=== PATIENT | male | born 1950 | race Caucasian/White ===

== ENCOUNTER → 2016-05-26 | Outpatient (CLI) | payer MEDICARE ==
[2016-05-26 11:01] LABS: Basophils % (A) 1 %; CH 31.9; CHCM 34.5; Eosinophils # (A) 0.3 k/uL (0-0.7); Eosinophils % (A) 5 %; HCT 45.7 % (39.0-53.0); HGB 15.5 gm/dL (13.0-17.5); Luc # (Auto) 0.08; Luc % (Auto) 1; Lymphocytes # (A) 1.1 k/uL (1.0-4.8); Lymphocytes % (A) 19 %; MCH 31.5 pg (25.0-35.0); MCHC 33.9 g/dL (31.0-37.0); Mean Platelet Volume 6.6; Monocytes # (A) 0.3 k/uL (0-1.0); Monocytes % (A) 6 %; Neutrophils % (A) 69 %; RBC 4.91 m/uL (4.30-5.90); WBC 5.8 k/uL (3.8-10.6); WBC (Perox) 5.86
[2016-05-26 11:17] LABS: Hemoglobin A1C 5.8 % (4.2-6.1)
[2016-05-26 11:49] LABS: ALT 34 U/L (21-72); AST 28 U/L (17-59); Alkaline Phosphatase 79 U/L (38-126); Anion Gap 13 mmol/L; Blood Urea Nitrogen 8 mg/dL (9-20); C Reactive Protein 5.7 mg/L (<10.0); Calcium 9.2 mg/dL (8.4-10.2); Carbon Dioxide 24 mmol/L (22-30); Chloride 107 mmol/L (98-107); Creatine Kinase 434 U/L (55-170); Glucose 141 mg/dL (74-99); Non-African American GFR(MDRD) >60 (>60 ml/min/1.73 sqM); Potassium 4.1 mmol/L (3.5-5.1); Sodium 144 mmol/L (137-145); Total Bilirubin 0.5 mg/dL (0.2-1.3)
[2016-05-26 11:59] LABS: Erythrocyte Sedimentation Rate 8 mm/hr (0-15)
[2016-05-26 12:13] LABS: Prostate Specific Antigen 4.37 ng/mL (0.00-4.00)
== END ==
LOC: LABWHC1 10:41
PROVIDERS: ATTEND Internal Medicine
DX: Z00.00 Encounter for general adult medical examination without abnormal findings (principal); N40.0 Benign prostatic hyperplasia without lower urinary tract symptoms; J44.9 Chronic obstructive pulmonary disease, unspecified; E11.9 Type 2 diabetes mellitus without complications; E78.5 Hyperlipidemia, unspecified; I10 Essential (primary) hypertension; E03.9 Hypothyroidism, unspecified; E55.9 Vitamin D deficiency, unspecified
CPT/HCPCS: 36415; 80053; 82306; 82550; 83036; 84153; 84443; 85025; 85652; 86140

== ENCOUNTER → 2016-05-27 | Outpatient (CLI) | payer MEDICARE ==
[2016-05-27 11:15] LABS: Cholesterol 86 mg/dL (<200); HDL Cholesterol 34 mg/dL (40-60); Triglycerides 99 mg/dL (<150)
== END | disposition home or self-care (01) ==
LOC: LABWHC1 10:30
PROVIDERS: ATTEND Internal Medicine
DX: Z00.00 Encounter for general adult medical examination without abnormal findings (principal); N40.0 Benign prostatic hyperplasia without lower urinary tract symptoms; J44.9 Chronic obstructive pulmonary disease, unspecified; E11.9 Type 2 diabetes mellitus without complications; E78.5 Hyperlipidemia, unspecified; I10 Essential (primary) hypertension; E03.9 Hypothyroidism, unspecified; E55.9 Vitamin D deficiency, unspecified
CPT/HCPCS: 36415; 80061

== ENCOUNTER → 2016-08-21 | Outpatient (CLI) | payer MEDICARE ==
[2016-08-21 13:30] LABS: Creatine Kinase MB 1.5 ng/mL (0.0-2.4); Troponin I <0.012 ng/mL (0.000-0.034)
[2016-08-21 13:36] LABS: Prostate Specific Antigen 4.71 ng/mL (0.00-4.00)
== END | disposition home or self-care (01) ==
LOC: LABWHC1 12:36
PROVIDERS: ATTEND Internal Medicine
DX: N40.0 Benign prostatic hyperplasia without lower urinary tract symptoms (principal); R97.20 Elevated prostate specific antigen [PSA]; R74.8 Abnormal levels of other serum enzymes
CPT/HCPCS: 36415; 82550; 82552; 82553; 84153; 84484

== ENCOUNTER → 2016-09-23 | Outpatient (CLI) | payer MEDICARE ==
--- NOTE | 2016-09-23 11:45 | XR ---
EXAMINATION TYPE: XR thoracic spine complete DATE OF EXAM: 09/23/2016 CLINICAL HISTORY: pain TECHNIQUE: Frontal, lateral, and swimmer's view of thoracic spine are obtained. COMPARISON: None. FINDINGS: Thoracic spine show satisfactory alignment without evidence of acute fracture or dislocatio n. Vertebral body heights are preserved. Moderate degenerative disc space narrowing and spondylosis is noted. Visualized ribs are unremarkable. IMPRESSION: No acute fracture or dislocation is seen in the thoracic spine. ICD 10 NO FRACTURE, INIT IAL EVALUATION
--- NOTE | 2016-09-23 11:47 | XR ---
EXAMINATION TYPE: XR cervical spine comp DATE OF EXAM: 09/23/2016 CLINICAL HISTORY: pain COMPARISON: NONE TECHNIQUE: Frontal, lateral, oblique, swimmers, and open mouth view of the cervical spine are obtaine d. FINDINGS: The cervical spine is visualized in its entirety from C1 thru the top of T1 level. It is s atisfactory in alignment without evidence of acute fracture or dislocation. The pre-vertebral soft t issue appears within normal limits. Moderate degenerative disc space narrowing greatest at C5-6 and C 6-7. Ventral and dorsal spondylosis. Right-sided foraminal encroachment at C5-6 and C6-7. The C1-C2 a rticulation is unremarkable on the open mouth view. IMPRESSION: No acute fracture or dislocation is seen in the cervical spine. Degenerative changes as noted. ICD 10 NO FRACTURE, INITIAL EVALUATION
[2016-09-23 11:49] LABS: Anion Gap 11 mmol/L; Blood Urea Nitrogen 13 mg/dL (9-20); Calcium 9.3 mg/dL (8.4-10.2); Carbon Dioxide 20 mmol/L (22-30); Chloride 112 mmol/L (98-107); Glucose 100 mg/dL (74-99); Non-African American GFR(MDRD) >60 (>60 ml/min/1.73 sqM); Potassium 4.6 mmol/L (3.5-5.1); Sodium 143 mmol/L (137-145)
== END | disposition home or self-care (01) ==
LOC: LABWHC1 11:07
PROVIDERS: ATTEND Internal Medicine
DX: M47.812 Spondylosis without myelopathy or radiculopathy, cervical region (principal); E87.8 Other disorders of electrolyte and fluid balance, not elsewhere classified
CPT/HCPCS: 36415; 72050; 72072; 80048; 83036

== ENCOUNTER → 2016-10-30 | Outpatient (CLI) | payer MEDICARE ==
[2016-10-30 13:13] LABS: Anion Gap 10 mmol/L; Blood Urea Nitrogen 13 mg/dL (9-20); Calcium 8.9 mg/dL (8.4-10.2); Carbon Dioxide 23 mmol/L (22-30); Chloride 109 mmol/L (98-107); Glucose 97 mg/dL (74-99); Non-African American GFR(MDRD) >60 (>60 ml/min/1.73 sqM); Potassium 4.8 mmol/L (3.5-5.1); Sodium 142 mmol/L (137-145)
== END | disposition home or self-care (01) ==
LOC: LABWHC1 11:53
PROVIDERS: ATTEND Internal Medicine
DX: E11.9 Type 2 diabetes mellitus without complications (principal); E87.8 Other disorders of electrolyte and fluid balance, not elsewhere classified; I10 Essential (primary) hypertension
CPT/HCPCS: 36415; 80048

== ENCOUNTER → 2016-10-31 | Outpatient (CLI) | payer MEDICARE ==
[2016-10-31 14:02] LABS: Basophils # (A) 0.1 k/uL (0-0.2); Basophils % (A) 1 %; CH 31.9; CHCM 33.6; Eosinophils # (A) 0.2 k/uL (0-0.7); Eosinophils % (A) 3 %; HCT 43.7 % (39.0-53.0); HDW 2.61; HGB 14.7 gm/dL (13.0-17.5); Luc % (Auto) 2; Lymphocytes # (A) 1.5 k/uL (1.0-4.8); Lymphocytes % (A) 23 %; MCH 32.1 pg (25.0-35.0); MCHC 33.6 g/dL (31.0-37.0); MCV 95.6 fL (80.0-100.0); Mean Platelet Volume 6.8; Monocytes # (A) 0.4 k/uL (0-1.0); Monocytes % (A) 6 %; Neutrophils # (A) 4.3 k/uL (1.3-7.7); Neutrophils % (A) 66 %; RBC 4.57 m/uL (4.30-5.90); RDW 13.8 % (11.5-15.5); WBC 6.5 k/uL (3.8-10.6); WBC (Perox) 6.69
--- NOTE | 2016-10-31 16:21 | XR ---
EXAMINATION TYPE: XR chest 2V DATE OF EXAM: 10/31/2016 COMPARISON: 01/22/2015 INDICATION: Cough TECHNIQUE: Frontal and lateral views of the chest are obtained. FINDINGS: The heart size is normal. The pulmonary vasculature is normal. There are multiple stable tiny punctate nodules present bilaterally. No suspicious infiltrates are ev ident. IMPRESSION: 1. Stable punctate nodularity present bilaterally. An acute process is not identified.
== END | disposition home or self-care (01) ==
LOC: LABWHC1 13:22
PROVIDERS: ATTEND Internal Medicine
DX: R91.8 Other nonspecific abnormal finding of lung field (principal); J06.9 Acute upper respiratory infection, unspecified; T50.905A Adverse effect of unspecified drugs, medicaments and biological substances, initial encounter
CPT/HCPCS: 36415; 71020; 85025

== ENCOUNTER → 2017-01-29 | Outpatient (CLI) | payer MEDICARE ==
[2017-01-29 10:07] LABS: Anion Gap 8 mmol/L; Blood Urea Nitrogen 11 mg/dL (9-20); Calcium 9.9 mg/dL (8.4-10.2); Carbon Dioxide 29 mmol/L (22-30); Chloride 105 mmol/L (98-107); Glucose 116 mg/dL (74-99); Non-African American GFR(MDRD) >60 (>60 ml/min/1.73 sqM); Potassium 4.9 mmol/L (3.5-5.1); Sodium 142 mmol/L (137-145)
[2017-01-29 10:35] LABS: Prostate Specific Antigen 4.76 ng/mL (0.00-4.00)
== END | disposition home or self-care (01) ==
LOC: LABWHC1 09:14
PROVIDERS: ATTEND Internal Medicine
DX: N40.0 Benign prostatic hyperplasia without lower urinary tract symptoms (principal); E11.9 Type 2 diabetes mellitus without complications; E87.8 Other disorders of electrolyte and fluid balance, not elsewhere classified; I10 Essential (primary) hypertension; R97.20 Elevated prostate specific antigen [PSA]
CPT/HCPCS: 36415; 80048; 82306; 83036; 84153

== ENCOUNTER → 2017-07-23 | Outpatient (CLI) | payer MEDICARE ==
[2017-07-23 12:33] LABS: Calcium 9.2 mg/dL (8.4-10.2); Magnesium 2.1 mg/dL (1.6-2.3); Potassium 3.9 mmol/L (3.5-5.1)
== END | disposition home or self-care (01) ==
LOC: LABWHC1 11:56
PROVIDERS: ATTEND Internal Medicine
DX: E87.8 Other disorders of electrolyte and fluid balance, not elsewhere classified (principal)
CPT/HCPCS: 36415; 80048; 83735

== ENCOUNTER → 2017-10-27 | Outpatient (CLI) | payer MEDICARE ==
[2017-10-27 11:56] LABS: Basophils # (A) 0.1 k/uL (0-0.2); Basophils % (A) 1 %; Eosinophils # (A) 0.3 k/uL (0-0.7); Eosinophils % (A) 4 %; HGB 15.8 gm/dL (13.0-17.5); Lymphocytes # (A) 1.3 k/uL (1.0-4.8); Lymphocytes % (A) 22 %; MCH 31.7 pg (25.0-35.0); MCHC 34.3 g/dL (31.0-37.0); MCV 92.6 fL (80.0-100.0); Monocytes # (A) 0.3 k/uL (0-1.0); Monocytes % (A) 6 %; Neutrophils # (A) 3.9 k/uL (1.3-7.7); Neutrophils % (A) 66 %; Platelet Count 185 k/uL (150-450); RBC 4.97 m/uL (4.30-5.90); RDW 14.2 % (11.5-15.5)
[2017-10-27 12:21] LABS: ALT 31 U/L (21-72); AST 23 U/L (17-59); Alkaline Phosphatase 80 U/L (38-126); Anion Gap 9 mmol/L; Blood Urea Nitrogen 13 mg/dL (9-20); C Reactive Protein <5.0 mg/L (<10.0); Calcium 8.9 mg/dL (8.4-10.2); Carbon Dioxide 23 mmol/L (22-30); Chloride 110 mmol/L (98-107); Cholesterol 149 mg/dL (<200); Creatine Kinase 142 U/L (55-170); Glucose 109 mg/dL (74-99); HDL Cholesterol 29 mg/dL (40-60); LDL Cholesterol,Calculated 86 mg/dL (0-99); Magnesium 2.2 mg/dL (1.6-2.3); Phosphorus 3.1 mg/dL (2.5-4.5); Potassium 4.2 mmol/L (3.5-5.1); Sodium 142 mmol/L (137-145); Total Bilirubin 0.3 mg/dL (0.2-1.3); Triglycerides 171 mg/dL (<150); Uric Acid 6.9 mg/dL (3.5-8.5)
[2017-10-27 12:35] LABS: T4, Free (Free Thyroxine) 1.07 ng/dL (0.78-2.19)
[2017-10-27 12:51] LABS: Prostate Specific Antigen 4.94 ng/mL (0.00-4.00)
[2017-10-27 14:13] LABS: Erythrocyte Sedimentation Rate 7 mm/hr (0-15)
[2017-10-27 16:21] LABS: Parathyroid Hormone Intact 78.4 pg/mL (14.0-72.0)
[2017-10-27 17:15] LABS: Vitamin D 25 Hydroxy 24.3 ng/mL (30.0-100.0)
[2017-10-27 19:57] LABS: Hemoglobin A1C 5.8 % (4.0-6.0)
== END | disposition home or self-care (01) ==
LOC: LABWHC1 10:25
PROVIDERS: ATTEND Internal Medicine
DX: E11.22 Type 2 diabetes mellitus with diabetic chronic kidney disease (principal); I12.9 Hypertensive chronic kidney disease with stage 1 through stage 4 chronic kidney disease, or unspecified chronic kidney disease; N18.3 Chronic kidney disease, stage 3 (moderate); D63.1 Anemia in chronic kidney disease; N40.0 Benign prostatic hyperplasia without lower urinary tract symptoms; J44.9 Chronic obstructive pulmonary disease, unspecified; E87.8 Other disorders of electrolyte and fluid balance, not elsewhere classified; M10.9 Gout, unspecified; E78.5 Hyperlipidemia, unspecified; E21.3 Hyperparathyroidism, unspecified; M19.90 Unspecified osteoarthritis, unspecified site; E55.9 Vitamin D deficiency, unspecified
CPT/HCPCS: 36415; 80053; 80061; 82306; 82550; 83036; 83735; 83970; 84100; 84153; 84439; 84443; 84550; 85025; 85652; 86140

== ENCOUNTER → 2018-02-22 | Outpatient (CLI) | payer MEDICARE ==
[2018-02-22 19:55] LABS: Anion Gap 9.9 mmol/L (4.00-12.00); Calcium 8.8 mg/dL (8.7-10.3); Carbon Dioxide 22.1 mmol/L (21.6-31.8)
== END ==
LOC: LABWHC1 12:55
PROVIDERS: ATTEND Internal Medicine
DX: N40.0 Benign prostatic hyperplasia without lower urinary tract symptoms (principal); E21.3 Hyperparathyroidism, unspecified; E55.9 Vitamin D deficiency, unspecified; R97.20 Elevated prostate specific antigen [PSA]
CPT/HCPCS: 36415; 80048; 83735; 83970; 84153

== ENCOUNTER → 2018-03-15 | Outpatient (CLI) | payer MEDICARE ==
[2018-03-15 21:32] LABS: Uric Acid 7.4 mg/dL (3.7-8.7)
== END | disposition home or self-care (01) ==
LOC: LABWHC1 10:53
PROVIDERS: ATTEND Internal Medicine
DX: M10.9 Gout, unspecified (principal); R73.9 Hyperglycemia, unspecified
CPT/HCPCS: 36415; 82947; 83036; 84550

== ENCOUNTER 2018-07-30 15:07 | Emergency (ER) | payer MEDICARE ==
[2018-07-30] MEDS ORDERED: SODIUM CHLORIDE 0.9% 1,000 ML IV STA (15:41)
[2018-07-30] MEDS ORDERED: ONDANSETRON 4 MG/2 ML VIAL IVP STA (15:41)
[2018-07-30 16:00] LABS: Basophils % (A) 0 %; Eosinophils # (A) 0.3 k/uL (0-0.7); Eosinophils % (A) 2 %; HCT 50.5 % (39.0-53.0); HGB 16.9 gm/dL (13.0-17.5); Lymphocytes # (A) 0.8 k/uL (1.0-4.8); Lymphocytes % (A) 5 %; MCH 29.5 pg (25.0-35.0); MCHC 33.4 g/dL (31.0-37.0); MCV 88.5 fL (80.0-100.0); Mean Platelet Volume 7.1; Monocytes # (A) 0.7 k/uL (0-1.0); Monocytes % (A) 4 %; Neutrophils # (A) 14.8 k/uL (1.3-7.7); Neutrophils % (A) 89 %; Platelet Count 240 k/uL (150-450); RBC 5.71 m/uL (4.30-5.90); RDW 13.5 % (11.5-15.5); WBC 16.7 k/uL (3.8-10.6)
[2018-07-30 16:14] LABS: Albumin 4.6 g/dL (3.5-5.0); Calcium 9.3 mg/dL (8.4-10.2); Potassium 4.2 mmol/L (3.5-5.1); Total Bilirubin 1.4 mg/dL (0.2-1.3); Total Protein 7.8 g/dL (6.3-8.2)
--- NOTE | 2018-07-30 16:15 | XR ---
KUB HISTORY: Abdominal pain Frontal KUB submitted on 2 images Aortic stent graft is in place. Lung bases are clear. There is no evident bowel obstruction or pneumo peritoneum. Neurologic desiccation. Bone mineralization is normal. Degenerative disc changes are note d in the lower lumbar spine. IMPRESSION: No acute abnormality evident
[2018-07-30 17:15] LABS: Appearance,Urine Cloudy (Clear); Bilirubin,Urine 1+ (Negative); Blood,Urine Small (Negative); Color,Urine Dark Brown; Glucose,Urine (UA) Trace (Negative); Hyaline Casts,Urine 118 /lpf (0-2); Ketones,Urine 2+ (Negative); Leukocyte Esterase,Urine Large (Negative); Mucus,Urine Many /hpf; Nitrite,Urine Negative (Negative); PH, Urine 6.5 (5.0-8.0); Protein,Urine 2+ (Negative); RBC,Urine 26 /hpf (0-5); Specific Gravity,Urine 1.023 (1.001-1.035); Squamous Epithelial Cell,Urine 1 /hpf (0-4); WBC,Urine >182 /hpf (0-5)
[2018-07-30 17:18] VITALS: TEMP 98.1
--- NOTE | 2018-07-30 18:56 | CT ---
EXAMINATION TYPE: CT abdomen pelvis wo con DATE OF EXAM: 07/30/2018 COMPARISON: None HISTORY: Bilateral flank pain. CT DLP: 539.1 mGycm Automated exposure control for dose reduction was used. TECHNIQUE: Helical acquisition of images was performed from the lung bases through the pelvis. FINDINGS: There is subsegmental atelectasis at the posterior lung bases. There is small calcified granulomata a t the lung bases. There is hiatal hernia. There is calcified left sided bronchial lymph node. There is hiatal hernia. Heart size is fairly normal. Liver shows no focal defect. Gallbladder appears normal. Spleen appears normal. There is no pancreatic mass. There is no adrenal mass. Kidneys have normal size. There is no evidence of a renal mass.. There is n o hydronephrosis. Ureters are not dilated. There is aortoiliac stent noted. There is 4.6 cm abdominal aortic aneurysm. There is no sign of leakage. The prostate is enlarged with small calcifications. Prostate measures 6.6 cm. There is no inguinal he rnia. There is no free fluid in the pelvis. There is no mesenteric edema. There is no ascites or free air. Appendix is not seen. There is no sign of thickened appendix. There is no evidence of a bowel obstruction. Lumbar spine is intact. Bony pel vis is intact. IMPRESSION: ABDOMINAL AORTIC ANEURYSM WITH AORTOILIAC STENT IN GOOD POSITION. NO SIGN OF ACUTE ABDOMEN AND PELVIS . OLD GRANULOMATOUS DISEASE. ENLARGED PROSTATE. NO EVIDENCE OF RENAL STONE OR OBSTRUCTION.
[2018-07-30] MEDS ORDERED: cefTRIAXone 1,000 MG VIAL (IM USE) IM STA (19:37)
--- NOTE | 2018-07-30 19:39 | ED ---
Abdominal Pain HPI - General Chief Complaint: Abdominal Pain Stated Complaint: abd pain, nausea Time Seen by Provider: 07/30/18 15:32 Source: patient Mode of arrival: ambulatory Limitations: no limitations - History of Present Illness Initial Comments: Patient is a 68-year-old male presents emergency Department with nausea or vomiting. Patient reports she developed multiple episodes of vomiting since yesterday. Patient also reports 1 episode of diarrhea. Patient reports left lower quadrant and suprapubic tenderness. Patient reports that he has been able to keep small amounts of fluids down but is not able to eat solid foods. Patient denies fever, headache, chest pain or shortness of breath. Patient reports the abdominal pain is unrelated to to food intake. Patient denies taking any medication to review the pain. Patient denies hemoptysis, hematuria, hematochezia or melena. Patient reports increased nocturia and dysuria but denies increased frequency and urgency. Patient also reports left flank pain. Patient denies testicular pain. - Related Data Home Medications Medication Instructions Recorded Confirmed Abilify 50 Mg 50 mg PO DAILY 11/14/14 11/16/14 Aspirin EC [Ecotrin] 81 mg PO DAILY 11/14/14 11/14/14 Citalopram Hydrobromide [CeleXA] 10 mg PO DAILY 11/14/14 11/16/14 Ginseng 500 mg PO DAILY 11/14/14 11/16/14 Methylphenidate HCl 20 mg PO DAILY 11/14/14 11/16/14 Multivitamins, Thera [Theragran] 1 each PO DAILY 11/14/14 11/14/14 Ubidecarenone [Co Q-10] 100 mg PO DAILY 11/14/14 11/16/14 cloZAPine [Clozaril] 100 mg PO HS 11/14/14 11/16/14 lamoTRIgine [Lamotrigine] 100 mg PO DAILY 11/14/14 11/16/14 amLODIPine BESYLATE [Amlodipine 5 mg PO DAILY 11/16/14 11/16/14 Besylate] Previous Rx's Medication Instructions Recorded Sulfamethox-Tmp 800-160Mg [Bactrim 1 each PO Q12HR #20 tab 07/30/18 Ds] Allergies Allergy/AdvReac Type Severity Reaction Status Date / Time No Known Allergies Allergy Verified 07/30/18 15:11 Review of Systems ROS Statement: Those systems with pertinent positive or pertinent negative responses have been documented in the HPI. ROS Other: All systems not noted in ROS Statement are negative. Past Medical History Past Medical History: CVA/TIA, Hypertension, Rheumatoid Arthritis (RA) History of Any Multi-Drug Resistant Organisms: None Reported Past Surgical History: Appendectomy Additional Past Surgical History / Comment(s): APPY (4 YRS OLD), COLONOSCOPY Past Anesthesia/Blood Transfusion Reactions: No Reported Reaction Past Psychological History: Schizoaffective Disorder Smoking Status: Current every day smoker Past Alcohol Use History: None Reported Past Drug Use History: Marijuana - Past Family History Father Family Medical History: Cancer Additional Family Medical History / Comment(s): COLO-RECTAL CA. GRANDFATHER- COLO-RECTAL CANCER ALSO General Exam Limitations: no limitations General appearance: alert, in no apparent distress Head exam: Present: atraumatic, normocephalic, normal inspection Eye exam: Present: normal appearance, PERRL, EOMI Pupils: Present: normal accommodation ENT exam: Present: normal exam, mucous membranes moist, TM's normal bilaterally Neck exam: Present: normal inspection, full ROM Respiratory exam: Present: normal lung sounds bilaterally Cardiovascular Exam: Present: regular rate, normal rhythm, normal heart sounds GI/Abdominal exam: Present: soft, tenderness (Left lower quadrant), normal bowel sounds. Absent: guarding, rebound, other (McBurney point tenderness, Rovsing or psoas sign) Extremities exam: Present: normal inspection, full ROM Back exam: Present: normal inspection, full ROM, CVA tenderness (L). Absent: CVA tenderness (R) Neurological exam: Present: alert, oriented X3 Psychiatric exam: Present: normal affect, normal mood Skin exam: Present: warm, intact, normal color Course Vital Signs 07/30/18 07/30/18 07/30/18 15:09 17:14 20:13 Temperature 98.3 F 98.1 F Pulse Rate 90 87 94 Respiratory 20 18 16 Rate Blood Pressure 146/86 150/88 155/85 O2 Sat by Pulse 99 94 L 98 Oximetry Medical Decision Making - Medical Decision Making Patient is 68-year-old male presents emergency Department with multiple episodes of nausea or vomiting. X-ray of the abdomen is unremarkable. CT of the abdomen is suggestive of enlarged prostate, no evidence of renal stone or obstruction, abdominal aortic aneurysm with aortoiliac stent in good position. No acute abdomen or pelvis. CBC and CMP are unremarkable. She does have a mildly elevated blood cell count CT of the the pelvis and abdomen was ordered to rule out possible colitis or diverticulitis. UA is positive for a UTI which could explain the flank pain that he is feeling. It is point patient was given fluids and Zofran. Patient will be discharged with Zofran and a treatment for a urinary tract infection that could also cover possible pyelonephritis. Patient was offered Levaquin but declined due to its side effects. Patient was given 1 g Rocephin and a 10 day course of Bactrim DS. Patient advised to follow-up with primary care. Return parameters were thoroughly discussed with patient and were understanding and agreeable. Case discussed with Dr. Cope who is in agreement with the treatment plan. - Lab Data Result diagrams: 07/30/18 15:50 07/30/18 15:50 Lab Results 07/30/18 07/30/18 07/30/18 Range/Units 15:50 15:50 16:53 WBC 16.7 H (3.8-10.6) k/uL RBC 5.71 (4.30-5.90) m/uL Hgb 16.9 (13.0-17.5) gm/dL Hct 50.5 (39.0-53.0) % MCV 88.5 (80.0-100.0) fL MCH 29.5 (25.0-35.0) pg MCHC 33.4 (31.0-37.0) g/dL RDW 13.5 (11.5-15.5) % Plt Count 240 (150-450) k/uL Neutrophils % 89 % Lymphocytes % 5 % Monocytes % 4 % Eosinophils % 2 % Basophils % 0 % Neutrophils # 14.8 H (1.3-7.7) k/uL Lymphocytes # 0.8 L (1.0-4.8) k/uL Monocytes # 0.7 (0-1.0) k/uL Eosinophils # 0.3 (0-0.7) k/uL Basophils # 0.0 (0-0.2) k/uL Sodium 137 (137-145) mmol/L Potassium 4.2 (3.5-5.1) mmol/L Chloride 103 (98-107) mmol/L Carbon Dioxide 20 L (22-30) mmol/L Anion Gap 14 mmol/L BUN 18 (9-20) mg/dL Creatinine 1.44 H (0.66-1.25) mg/dL Est GFR (CKD-EPI)AfAm 57 (>60 ml/min/1.73 sqM) Est GFR (CKD-EPI)NonAf 49 (>60 ml/min/1.73 sqM) Glucose 134 H (74-99) mg/dL Calcium 9.3 (8.4-10.2) mg/dL Total Bilirubin 1.4 H (0.2-1.3) mg/dL AST 21 (17-59) U/L ALT 19 L (21-72) U/L Alkaline Phosphatase 94 (38-126) U/L Total Protein 7.8 (6.3-8.2) g/dL Albumin 4.6 (3.5-5.0) g/dL Amylase 51 (30-110) U/L Lipase 27 (23-300) U/L Urine Color Dark Brown Urine Appearance Cloudy (Clear) Urine pH 6.5 (5.0-8.0) Ur Specific [place] 1.023 (1.001-1.035) Urine Protein 2+ H (Negative) Urine Glucose (UA) Trace H (Negative) Urine Ketones 2+ H (Negative) Urine Blood Small H (Negative) Urine Nitrite Negative (Negative) Urine Bilirubin 1+ H (Negative) Urine Urobilinogen 6.0 (<2.0) mg/dL Ur Leukocyte Esterase Large H (Negative) Urine RBC 26 H (0-5) /hpf Urine WBC >182 H (0-5) /hpf Urine WBC Clumps Many H (None) /hpf Ur Squamous Epith Cells 1 (0-4) /hpf Hyaline Casts 118 H (0-2) /lpf Urine Mucus Many H (None) /hpf Disposition Clinical Impression: Nausea and vomiting Disposition: HOME SELF-CARE Condition: Stable Additional Instructions: Please see prescribed medication as directed. Please follow-up with primary care. Please return to emergency department if symptoms worsen. Please follow up with a surgeon regarding possible umbilical hernia. Prescriptions: Sulfamethox-Tmp 800-160Mg [Bactrim Ds] 1 each PO Q12HR #20 tab Is patient prescribed a controlled substance at d/c from ED?: No Referrals: Alo Arroyo MD [Primary Care Provider] - 1-2 days Barry Hoffmann MD [STAFF PHYSICIAN] - 1-2 days Time of Disposition: 19:38
[2018-07-30 20:14] VITALS: BP 155/85; PULSE 94; RESP 16
== END 2018-07-30 20:30 | disposition home or self-care (01) ==
LOC: EC 15:07
DX: R11.2 Nausea with vomiting, unspecified (principal); R10.9 Unspecified abdominal pain; R19.7 Diarrhea, unspecified; N39.0 Urinary tract infection, site not specified; I10 Essential (primary) hypertension; F25.9 Schizoaffective disorder, unspecified; F17.200 Nicotine dependence, unspecified, uncomplicated; Z79.82 Long term (current) use of aspirin; Z79.899 Other long term (current) drug therapy; Z86.73 Personal history of transient ischemic attack (TIA), and cerebral infarction without residual deficits; Z95.828 Presence of other vascular implants and grafts
CPT/HCPCS: 36415; 80053; 82150; 83690; 85025; 81001; 74018; 74176; 99284; 96365; 96375; 96361; J2405; J0696

== ENCOUNTER → 2018-09-08 | Outpatient (CLI) | payer MEDICARE ==
[2018-09-08 15:18] LABS: Appearance,Urine Clear (Clear); Bilirubin,Urine Negative (Negative); Blood,Urine Negative (Negative); Color,Urine Yellow; Glucose,Urine (UA) Negative (Negative); Ketones,Urine Negative (Negative); Leukocyte Esterase,Urine Negative (Negative); Nitrite,Urine Negative (Negative); PH, Urine 6.5 (5.0-8.0); Protein,Urine Negative (Negative); Specific Gravity,Urine 1.009 (1.001-1.035); Urobilinogen,Urine <2.0 mg/dL (<2.0)
[2018-09-08 15:28] LABS: Basophils # (A) 0.1 k/uL (0-0.2); Basophils % (A) 1 %; Eosinophils # (A) 0.5 k/uL (0-0.7); Eosinophils % (A) 7 %; HGB 16.6 gm/dL (13.0-17.5); Lymphocytes # (A) 1.3 k/uL (1.0-4.8); Lymphocytes % (A) 16 %; MCH 30.7 pg (25.0-35.0); MCHC 33.1 g/dL (31.0-37.0); MCV 92.5 fL (80.0-100.0); Mean Platelet Volume 6.9; Monocytes # (A) 0.4 k/uL (0-1.0); Monocytes % (A) 6 %; Neutrophils # (A) 5.6 k/uL (1.3-7.7); Neutrophils % (A) 70 %; Platelet Count 213 k/uL (150-450); RBC 5.41 m/uL (4.30-5.90); RDW 15.8 % (11.5-15.5); WBC 8.1 k/uL (3.8-10.6)
--- NOTE | 2018-09-08 15:44 | XR ---
EXAMINATION TYPE: XR cervical spine comp DATE OF EXAM: 09/08/2018 TECHNIQUE: Frontal, lateral, oblique, swimmers, and open mouth view of the cervical spine are obtaine d. HISTORY: N18.3/M81.0/UNCONTROLLED L LCP COMPARISON: None FINDINGS: The cervical spine is visualized in its entirety from C1 thru the top of T1 level, it is s atisfactory in alignment without evidence of acute fracture or dislocation. The pre-vertebral soft t issue appears within normal limits. The C1-C2 articulation is within normal limits on the open mouth view. Moderate multilevel degenerative disc disease is seen as there are small anterior osteophytes, multilevel intervertebral disc space narrowing, endplate sclerosis and multilevel uncovertebral hype rtrophy. Incidental note is made of carotid atherosclerosis. Small nodules are noted in the lung apic es that could relate to granulomas as seen on the prior chest x-ray of 10/31/2016. Oblique images demo nstrate neural foraminal narrowing at C4-C5, C5-C6, and C6-C7 on the right and at C3-C4, C4-C5 and C6 -C7 on the left. IMPRESSION: 1. No acute fracture or malalignment is seen in the cervical spine. 2. Moderate multilevel degenerative disc disease of the cervical spine. Multilevel neural foraminal n arrowing is seen that could be assessed with MRI or CT.
--- NOTE | 2018-09-08 15:47 | XR ---
EXAMINATION TYPE: XR Hip Complete LT DATE OF EXAM: 09/08/2018 CLINICAL HISTORY: Left hip pain TECHNIQUE: AP and frogleg views of the left hip are obtained. COMPARISON: None. FINDINGS: There is no acute fracture/dislocation evident in the left hip. There is over covering of the acetabulum and small cam deformity of the lateral left femoral head neck junction. The joint spac e in the left hip appears within normal limits. The overlying soft tissue appears unremarkable. IMPRESSION: There is no acute fracture or dislocation in the left hip. 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 C orrelate clinically.
--- NOTE | 2018-09-08 15:49 | XR ---
EXAMINATION TYPE: XR lumbar spine 2 or 3V DATE OF EXAM: 09/08/2018 CLINICAL HISTORY: Back pain TECHNIQUE: Frontal and lateral images of the lumbar spine are obtained. COMPARISON: None FINDINGS: There are 5 lumbar type vertebral bodies identified. The lumbar spine shows satisfactory alignment without evidence of acute fracture or dislocation. Vertebral body heights and disk space he ights are within normal limits. Extensive multilevel facet arthropathy and the appearance of heteroto pic ossification is seen at L4-S1 predominantly on the left. Aortobifemoral endograft is noted. IMPRESSION: 1. No acute fracture or malalignment is seen in the lumbar spine. 2. Extensive multilevel facet arthropathy on the lumbar spine predominantly from L4 through S1 appear ing is heterotopic ossification on the left. Correlate with any prior lumbar surgery.
--- NOTE | 2018-09-08 15:55 | XR ---
EXAMINATION TYPE: XR thoracic spine complete DATE OF EXAM: 09/08/2018 CLINICAL HISTORY: Fall with mid back pain. TECHNIQUE: Frontal, lateral, and swimmer's view of thoracic spine are obtained. COMPARISON: 09/23/2016 FINDINGS: Thoracic spine show satisfactory alignment without evidence of acute fracture or dislocatio n. Moderate multilevel degenerative changes of the thoracic spine is seen as bridging anterior osteo phyte, multilevel intervertebral disc space narrowing and multilevel endplate sclerosis. Vertebral remi dy heights and disc space heights are preserved. Visualized ribs are unremarkable. Partial visualiz ation of an aortic endograft. IMPRESSION: No acute fracture or malalignment is seen in the thoracic spine.
[2018-09-08 19:40] LABS: Erythrocyte Sedimentation Rate 5 mm/hr (0-15)
[2018-09-08 20:37] LABS: African American GFR (CKD) 71.1 (60.0-200.0); Albumin 4.6 g/dL (3.80-4.90); Albumin/Globulin Ratio 2.09 (1.60-3.17); Anion Gap 13.4 mmol/L (4.00-12.00); BUN/Creat Ratio 9.17 Ratio (12.00-20.00); Calcium 9.4 mg/dL (8.7-10.3); Carbon Dioxide 21.6 mmol/L (21.6-31.8); Globulin 2.2 g/dL (1.6-3.3); Non-African American GFR(CKD) 61.3 (60.0-200.0); Total Bilirubin 0.8 mg/dL (0.2-1.2); Total Protein 6.8 g/dL (6.2-8.2)
== END | disposition home or self-care (01) ==
LOC: LABWHC1 14:33
PROVIDERS: ATTEND Internal Medicine
DX: M50.30 Other cervical disc degeneration, unspecified cervical region (principal); M25.852 Other specified joint disorders, left hip; M46.96 Unspecified inflammatory spondylopathy, lumbar region; N18.3 Chronic kidney disease, stage 3 (moderate); M25.552 Pain in left hip; M81.0 Age-related osteoporosis without current pathological fracture
CPT/HCPCS: 36415; 72050; 72072; 72100; 73502; 80053; 81003; 85025; 85652; 87086

== ENCOUNTER → 2018-09-09 | Outpatient (CLI) | payer MEDICARE ==
--- NOTE | 2018-09-09 08:50 | US ---
EXAMINATION TYPE: US abdomen comp/pelvis limited DATE OF EXAM: 09/09/2018 COMPARISON: NONE CLINICAL HISTORY: left lower quadrant pain R10.32. Abdomen and pelvic pain, HX AAA with stent EXAM MEASUREMENTS: Liver Length: 17.8 cm Gallbladder Wall: 0.2 cm CHD: 0.2 cm Spleen: 10.1 cm Right Kidney: 10.6 x 5.1 x 4.5 cm Left Kidney: 11.4 x 4.6 x 5.4 cm Pancreas: Head and tail obscured by overlying bowel gas Liver: Appears slightly enlarged, coarse, heterogenous and echogenic. This finding limits evaluation for hepatic masses. No prominent focal lesions identified. Gallbladder: wnl CBD: Obscured by overlying bowel gas CHD: wnl Spleen: wnl Right Kidney: No hydronephrosis or masses seen Left Kidney: No hydronephrosis or masses seen Upper IVC: wnl Abd Aorta: Limited visualization due to overlying bowel gas. Stent visualized. Distal AAA visualiz ed = 4.1 x 4.4 x 5.9 cm Bladder: wnl, distended Bilateral Jets Seen Incidentally noted enlarged and heterogenous prostate visualized- 5.4 x 3.9 x 4.6 cm IMPRESSION: 1. Sonographic findings most commonly related to hepatic steatosis appearing moderate in degree. [place] elate with liver function tests. 2. Slightly limited exam due to overlying bowel gas with obscuration the pancreatic head and tail and obscuration of the common bile duct. Abdominal aorta is also suboptimally visualized with patent kirit nt partially visualized and [place] aortic lumen measuring 4.1 x 4.4 cm and the aneurysm measuring 5.9 cm in length. 3. Incidentally noted enlarged heterogenous prostate gland.
== END | disposition home or self-care (01) ==
LOC: RADUSWWP 07:37
PROVIDERS: ATTEND Internal Medicine
DX: I71.4 Abdominal aortic aneurysm, without rupture (principal); Z95.828 Presence of other vascular implants and grafts
CPT/HCPCS: 76700; 76857

== ENCOUNTER 2018-10-01 15:44 | Emergency (ER) | payer MEDICARE ==
[2018-10-01 16:03] VITALS: TEMP 97.5
[2018-10-01] MEDS ORDERED: ONDANSETRON 4 MG/2 ML VIAL IVP STA (16:42)
[2018-10-01] MEDS ORDERED: MORPHINE SULFATE 4 MG/ML SYRINGE IVP STA (16:42)
[2018-10-01] MEDS ORDERED: SODIUM CHLORIDE 0.9% 1,000 ML IV STA (16:42)
--- NOTE | 2018-10-01 16:51 | ED ---
Back Pain HPI - General Chief Complaint: Back Pain/Injury Stated Complaint: Pinched nerve, bed sores Time Seen by Provider: 10/01/18 16:08 Source: patient Limitations: physical limitation - History of Present Illness Initial Comments: Patient is a 68-year-old male presenting to the emergency department with complaints of low back pain x a few months. Patient states his severe low back pain started the end of July. Patient denies any specific trauma or injury to his back. Patient has been having chronic low back pain for years now but it has never been severe. Patient is currently taking [place] 5 for pain however it is not helping. Patient states he has some much pain he is not able to walk around his house or even to the restroom. Patient denies saddle paresthesia, bowel or bladder incontinence. Patient states he does have an appointment with a back specialist next week but the pain is so severe that he cannot wait that long. Patient denies fever, chills, nausea, vomiting, diarrhea. Patient does admit to some constipation issues with the pain medications. Patient has no other complaints at this time. Upon arrival to the ER, vital signs are stable, afebrile. - Related Data Home Medications Medication Instructions Recorded Confirmed Ginseng 500 mg PO DAILY 11/14/14 08/11/18 amLODIPine BESYLATE [Amlodipine 5 mg PO HS 11/16/14 08/11/18 Besylate] Aspirin 175 mg PO DAILY 08/11/18 08/11/18 HYDROcodone/APAP 5-325MG [[place] 1 tab PO Q6HR PRN 08/11/18 08/11/18 5-325] QUEtiapine [SEROquel] 100 mg PO HS 08/11/18 08/11/18 Tamsulosin [Flomax] 0.4 mg PO BID 08/11/18 08/11/18 hydrALAZINE HCL [Apresoline] 50 mg PO TID 08/11/18 08/11/18 metFORMIN HCL [Glucophage] 500 mg PO BID 08/11/18 08/11/18 Allergies Allergy/AdvReac Type Severity Reaction Status Date / Time No Known Allergies Allergy Verified 10/01/18 16:03 Review of Systems ROS Statement: Those systems with pertinent positive or pertinent negative responses have been documented in the HPI. ROS Other: All systems not noted in ROS Statement are negative. Past Medical History Past Medical History: CVA/TIA, Diabetes Mellitus, Hypertension, Osteoarthritis (OA), Prostate Disorder, Renal Disease Additional Past Medical History / Comment(s): TIA 2012-no residual effects, hx. aortic aneurysm, decreased kidney function- History of Any Multi-Drug Resistant Organisms: None Reported Past Surgical History: Appendectomy Additional Past Surgical History / Comment(s): APPY (4 YRS OLD), COLONOSCOPY, abd. aortic stent 2014 Past Anesthesia/Blood Transfusion Reactions: No Reported Reaction Past Psychological History: Schizoaffective Disorder Smoking Status: Current every day smoker Past Alcohol Use History: None Reported Past Drug Use History: Marijuana - Past Family History Father Family Medical History: Cancer Additional Family Medical History / Comment(s): COLO-RECTAL CA. GRANDFATHER- COLO-RECTAL CANCER ALSO General Exam - General Exam Comments Initial Comments: GENERAL: Well-appearing, well-nourished and in mild distress secondary to pain. Patient is currently laying on his right side in position. HEAD: Atraumatic, normocephalic. EYES: Pupils equal round and reactive to light, extraocular movements intact, sclera anicteric, conjunctiva are normal. ENT: TMs normal, nares patent, oropharynx clear without exudates. Moist mucous membranes. NECK: Normal range of motion, supple without lymphadenopathy or JVD. LUNGS: Breath sounds clear to auscultation bilaterally and equal. No wheezes rales or rhonchi. HEART: Regular rate and rhythm without murmurs, rubs or gallops. ABDOMEN: Soft, nontender, normoactive bowel sounds. No guarding, no rebound. No masses appreciated. : Deferred EXTREMITIES: Pain with palpation on lumbar, left and right SI joints and coccyx area. Pain with straightening of left leg bilateral lower extremity sensation intact. Strength not tested secondary to pain. NEUROLOGICAL: Cranial nerves II through XII grossly intact. Normal speech. PSYCH: Normal mood, normal affect. SKIN: Warm, Dry, normal turgor, no rashes or lesions noted. Limitations: physical limitation Course Vital Signs 10/01/18 10/01/18 10/01/18 16:00 18:56 20:26 Temperature 97.5 F L Pulse Rate 94 80 82 Respiratory 18 17 17 Rate Blood Pressure 162/82 131/72 152/75 O2 Sat by Pulse 99 97 98 Oximetry Medical Decision Making - Medical Decision Making Patient is 68-year-old male presenting with worsening back pain 2 days. Patient has been having ongoing back pain for the last month but increased last couple days. Patient is having trouble standing up too's restroom, moving around in bed. Patient is currently taking apple 5 without relief. Patient is also see a neurologist on Thursday but cannot wait that long. Upon arrival, vital signs are stable, afebrile. Exam reveals pain in lumbar area bilateral. Positive straight leg raise. Patient has been in a position since arrival. Lab work is unremarkable. CT lumbar shows no spinal stenosis no fracture and also significant disc space narrowing. Case discussed with Dr. Deras. Family became increasingly agitated that we were speaking about disch arge. Patient will be transferred to medical. For possible neurology and/or neurosurgical consult. Patient was accepted by Dr. Marley. Family's agreement with this plan. - Lab Data Result diagrams: 10/01/18 17:27 10/01/18 17:27 Lab Results 10/01/18 10/01/18 10/01/18 Range/Units 17:27 17:27 17:40 WBC 7.7 (3.8-10.6) k/uL RBC 5.58 (4.30-5.90) m/uL Hgb 17.0 (13.0-17.5) gm/dL Hct 49.7 (39.0-53.0) % MCV 89.2 (80.0-100.0) fL MCH 30.4 (25.0-35.0) pg MCHC 34.1 (31.0-37.0) g/dL RDW 13.7 (11.5-15.5) % Plt Count 223 (150-450) k/uL Neutrophils % 71 % Lymphocytes % 15 % Monocytes % 7 % Eosinophils % 5 % Basophils % 1 % Neutrophils # 5.5 (1.3-7.7) k/uL Lymphocytes # 1.2 (1.0-4.8) k/uL Monocytes # 0.5 (0-1.0) k/uL Eosinophils # 0.4 (0-0.7) k/uL Basophils # 0.1 (0-0.2) k/uL Sodium 135 L (137-145) mmol/L Potassium 4.0 (3.5-5.1) mmol/L Chloride 103 (98-107) mmol/L Carbon Dioxide 18 L (22-30) mmol/L Anion Gap 14 mmol/L BUN 19 (9-20) mg/dL Creatinine 1.02 (0.66-1.25) mg/dL Est GFR (CKD-EPI)AfAm 87 (>60 ml/min/1.73 sqM) Est GFR (CKD-EPI)NonAf 75 (>60 ml/min/1.73 sqM) Glucose 90 (74-99) mg/dL Calcium 9.7 (8.4-10.2) mg/dL Total Bilirubin 0.6 (0.2-1.3) mg/dL AST 23 (17-59) U/L ALT 20 L (21-72) U/L Alkaline Phosphatase 98 (38-126) U/L Total Protein 7.5 (6.3-8.2) g/dL Albumin 4.4 (3.5-5.0) g/dL Urine Color Yellow Urine Appearance Clear (Clear) Urine pH 6.0 (5.0-8.0) Ur Specific [place] 1.023 (1.001-1.035) Urine Protein Trace H (Negative) Urine Glucose (UA) Negative (Negative) Urine Ketones 2+ H (Negative) Urine Blood Negative (Negative) Urine Nitrite Negative (Negative) Urine Bilirubin Negative (Negative) Urine Urobilinogen <2.0 (<2.0) mg/dL Ur Leukocyte Esterase Negative (Negative) Disposition Clinical Impression: Low back pain, Lumbar radicular pain Disposition: OTHER INSTITUTION NOT DEFINED Condition: Good Is patient prescribed a controlled substance at d/c from ED?: No Referrals: Alo Arroyo MD [Primary Care Provider] - 1-2 days - Out of Hospital Transfer - Req. Specs Out of Hospital Transfer - Requested Specifics: Other Emergency Center ([facility])
[2018-10-01 17:34] LABS: Basophils # (A) 0.1 k/uL (0-0.2); Basophils % (A) 1 %; Eosinophils # (A) 0.4 k/uL (0-0.7); Eosinophils % (A) 5 %; HCT 49.7 % (39.0-53.0); Lymphocytes # (A) 1.2 k/uL (1.0-4.8); Lymphocytes % (A) 15 %; MCH 30.4 pg (25.0-35.0); MCHC 34.1 g/dL (31.0-37.0); MCV 89.2 fL (80.0-100.0); Mean Platelet Volume 6.6; Monocytes # (A) 0.5 k/uL (0-1.0); Monocytes % (A) 7 %; Neutrophils # (A) 5.5 k/uL (1.3-7.7); Neutrophils % (A) 71 %; Platelet Count 223 k/uL (150-450); RBC 5.58 m/uL (4.30-5.90); RDW 13.7 % (11.5-15.5); WBC 7.7 k/uL (3.8-10.6)
[2018-10-01 17:42] LABS: Albumin 4.4 g/dL (3.5-5.0); Calcium 9.7 mg/dL (8.4-10.2); Total Bilirubin 0.6 mg/dL (0.2-1.3); Total Protein 7.5 g/dL (6.3-8.2)
[2018-10-01 17:51] LABS: Appearance,Urine Clear (Clear); Bilirubin,Urine Negative (Negative); Blood,Urine Negative (Negative); Color,Urine Yellow; Glucose,Urine (UA) Negative (Negative); Ketones,Urine 2+ (Negative); Leukocyte Esterase,Urine Negative (Negative); Nitrite,Urine Negative (Negative); Protein,Urine Trace (Negative); Specific Gravity,Urine 1.023 (1.001-1.035); Urobilinogen,Urine <2.0 mg/dL (<2.0)
[2018-10-01] MEDS ORDERED: MORPHINE SULFATE 2 MG/ML SYRINGE IVP ONE (18:07)
[2018-10-01 19:06] VITALS: RESP 17
--- NOTE | 2018-10-01 19:44 | CT ---
EXAMINATION TYPE: CT lumbar spine wo con DATE OF EXAM: 10/01/2018 7:38 PM COMPARISON: Lumbar spine exam 09/08/2018 HISTORY: Left sided low back pain. CT DLP: 798.9 mGycm Automated exposure control for dose reduction was used. Unenhanced CT of the lumbar spine was performed. Bone and soft tissue window settings are submitted as well as coronal and sagittal reconstructions. Lumbar vertebra have normal alignment. There is aortoiliac stent noted. Disc spaces are fairly normal . There is no compression fracture. There is hypertrophic facet arthropathy in the lower lumbar spine . I see no focal bone destruction. There is no lumbar paraspinal mass. There is no evidence of lumbar bony spinal stenosis. There are small posterior disc bulging at multiple levels of the lumbar spine. Sacroiliac joints appear intact. IMPRESSION: Degenerative hypertrophic facet arthropathy in the lower lumbar spine. No spinal stenosis. No fractur e. No significant disc space narrowing. No change compared to lumbar spine x-rays exam of 09/08/2018.
[2018-10-01 20:29] VITALS: BP 152/75; PULSE 82
== END 2018-10-01 21:39 | disposition other institution (70) ==
LOC: EC 15:44
DX: M54.16 Radiculopathy, lumbar region (principal); E11.9 Type 2 diabetes mellitus without complications; I10 Essential (primary) hypertension; F25.9 Schizoaffective disorder, unspecified; F17.200 Nicotine dependence, unspecified, uncomplicated; Z79.82 Long term (current) use of aspirin; Z79.84 Long term (current) use of oral hypoglycemic drugs; Z79.899 Other long term (current) drug therapy; Z86.73 Personal history of transient ischemic attack (TIA), and cerebral infarction without residual deficits
CPT/HCPCS: 99284 ×2; 96374 ×2; 96375 ×2; 96376 ×2; 96361 ×5; 36415; 80053; 85025; 81003; 72131; J2270 ×2; J2405

== ENCOUNTER → 2018-10-30 | Outpatient (CLI) | payer MEDICARE ==
--- NOTE | 2018-11-05 17:03 | PE ---
Nuclear medicine PET/CT HISTORY: Esophageal carcinoma, subsequent Patient received 12.1 mCi F-18 FDG intravenously in delayed scanning was performed from skull base to the mid thighs. Localization and attenuation correction CT scan was performed. Correlation to CT lumbar spine 10/01/2018, CT abdomen pelvis 07/30/2018 Neck and chest: Multiple areas of abnormal soft tissue uptake are present. There is a large area whic h shows amorphous soft tissue increased attenuation, asymmetric increased size about the left scapula as compared to the right. SUV is 11. Small focus posterior to the right bony labrum shows an SUV of 4.3 cm mass and soft tissue window. Along the left lateral chest wall abnormal soft tissue is present at the mid chest level, SUV is 5.6. Immediately anterior to the left scapula, posterior to the left clavicle there is a focus of abnormal soft tissue, SUV is 5. In the supraclavicular region on the rig ht there is a focus of abnormal uptake, SUV 3.5. Along the trapezius muscle on the left there is a fo cus of abnormal uptake, SUV is 3.4. Small focus of adjacent to the spinous process at C6 is also pres ent with abnormal hypermetabolic uptake in the right midline, SUV 3.1. Uptake associated with the abnormal thickening of the distal esophagus is present, SUV is 8.0. There is evidence of old granulomatous disease within the chest however there are multiple ill-defined soft tissue nodules present bilaterally without significant hypermetabolic uptake. ABDOMEN: Along the musculature anterior to the right ilium there is abnormal hypermetabolic uptake, S UV is 5.5. Adjacent to the lower lumbar spine to the left midline there is asymmetric amorphous incre ased soft tissue density posterior to the psoas musculature immediately superior to the ileum and lat eral to the L5 transverse process, SUV is 7.3 extending posteriorly to the paraspinal musculature. Th e psoas muscle on the right also shows a focus of uptake, SUV 3.4. Along the region of the soft tissu e anterior to the left sacrum medial to the iliac is muscle there is a focus of uptake, SUV is 3.6. F ocus within the gluteus musculature on the left is also not seen on noncontrast CT but shows SUV 5.3. Within the musculature of the proximal anterior right thigh there is a focus of uptake, SUV 6.4. Jus t lateral to the greater trochanter and slightly cephalad small focus of uptake shows an SUV 3.6. Wit hin the abductor musculature on the left is a focus of uptake present, SUV is 6.8. This extends in a longitudinal fashion along the what is likely the abductor deepak. Posterior right sixth rib shows a focus of uptake, SUV is 3.6. IMPRESSION: Extensive metastatic disease.
== END | disposition home or self-care (01) ==
LOC: RADPETMAIN 11:43
PROVIDERS: ATTEND Radiology Radiation Oncology
DX: C79.51 Secondary malignant neoplasm of bone (principal)
CPT/HCPCS: 78815; A9552

== ENCOUNTER → 2018-11-24 | Outpatient (CLI) | payer MEDICARE ==
--- NOTE | 2018-11-24 09:21 | US ---
EXAMINATION TYPE: US venous doppler duplex LE LT DATE OF EXAM: 11/24/2018 9:13 AM COMPARISON: NONE CLINICAL HISTORY: R22.42 Swelling of Left Lower Limb. Edema left foot SIDE PERFORMED: left TECHNIQUE: The lower extremity deep venous system is examined utilizing real time linear array sonog yamil with graded compression, doppler sonography and color-flow sonography. VESSELS IMAGED: External Iliac Vein (EIV) Common Femoral Vein Deep Femoral Vein Greater Saphenous Vein * Femoral Vein Popliteal Vein Small Saphenous Vein * Proximal Calf Veins (* superficial vessels) Left Leg: No evidence of DVT as visualized IMPRESSION: 1. Left lower extremity ultrasound negative for deep venous thrombosis.
== END | disposition home or self-care (01) ==
LOC: RADUSWWP 08:30
PROVIDERS: ATTEND Internal Medicine Hematology & Oncology
DX: R22.42 Localized swelling, mass and lump, left lower limb (principal)

== ENCOUNTER 2018-11-26 09:58 | Day surgery (SDC) | payer MEDICARE ==
[2018-11-25 12:05] VITALS: BMI 26.3
[~2018-11-26 09:58] MED LIST: HEPARIN SODIUM,PORCINE 5,000 UNIT/ML 1 ML VIAL SQ ONE; HYDROmorphone 0.5 MG/0.5 ML SYRINGE IVP PRN; LACTATED RINGERS 1,000 ML IV SCH; ONDANSETRON 4 MG/2 ML VIAL IVP PRN; Pre Op ABX Message 1 EACH MISC MISCELLANE ONE
[2018-11-26 10:31] LABS: Glucose,Whole Blood 103 mg/dL (75-99)
[2018-11-26] MEDS ORDERED: LIDOCAINE 1% 20 ML VIAL (10MG/ML) FOR IV START INTRADERMA ONE (10:41)
--- NOTE | 2018-11-26 10:55 | P.GSHP ---
History of Present Illness H&P Date: 11/26/18 Chief Complaint: Esophageal cancer Patient is today for a Port-A-Cath placement. Patient starting chemotherapy hopefully next week. Recent diagnosis of esophageal cancer. He has not had a port previously. Significant pain related to his underlying malignancy with metastasis. Past Medical History Past Medical History: Cancer, CVA/TIA, Diabetes Mellitus, Hypertension, Osteoarthritis (OA), Prostate Disorder, Renal Disease Additional Past Medical History / Comment(s): TIA 2012-no residual effects, hx. aortic aneurysm, decreased kidney function, small hiatal hernia History of Any Multi-Drug Resistant Organisms: None Reported Past Surgical History: Appendectomy Additional Past Surgical History / Comment(s): APPY (4 YRS OLD), COLONOSCOPY, abd. aortic stent 2014 Past Anesthesia/Blood Transfusion Reactions: No Reported Reaction Smoking Status: Former smoker - Past Family History Father Family Medical History: Cancer Additional Family Medical History / Comment(s): COLO-RECTAL CA. GRANDFATHER- C OLO-RECTAL CANCER ALSO Medications and Allergies Home Medications Medication Instructions Recorded Confirmed Type Aspirin 81 mg PO DAILY 08/11/18 11/26/18 History QUEtiapine [SEROquel] 100 mg PO HS 08/11/18 11/25/18 History Tamsulosin [Flomax] 0.4 mg PO BID 08/11/18 11/25/18 History hydrALAZINE HCL [Apresoline] 50 mg PO TID 08/11/18 11/25/18 History metFORMIN HCL [Glucophage] 500 mg PO BID 08/11/18 11/25/18 History Dexamethasone 4 mg PO TID 11/25/18 11/25/18 History Diltiazem HCl 30 mg PO DAILY 11/25/18 11/25/18 History Docusate [Colace] 100 mg PO DAILY 11/25/18 11/25/18 History Gabapentin [Neurontin] 300 mg PO TID 11/25/18 11/25/18 History HYDROcodone/APAP 10-325MG [[place] 1 tab PO Q6HR PRN 11/25/18 11/25/18 History 10-325] Morphine Sulfate ER [Ms Contin] 30 mg PO Q8H PRN 11/25/18 11/26/18 History Pantoprazole Sodium [Protonix] 40 mg PO DAILY 10/17/19 10/17/19 History Pravastatin Sodium [Pravachol] 20 mg PO DAILY 11/25/18 11/25/18 History Allergies Allergy/AdvReac Type Severity Reaction Status Date / Time No Known Allergies Allergy Verified 11/26/18 10:32 Surgical - Exam Vital Signs Temp Pulse Resp BP Pulse Ox 97.7 F 72 16 113/60 96 11/26/18 10:23 11/26/18 10:23 11/26/18 10:23 11/26/18 10:23 11/26/18 10:23 Physical exam: General: Well-developed, well-nourished HEENT: Normocephalic, sclerae nonicteric Abdomen: Nontender, nondistended Extremities: No edema Neuro: Alert and oriented Results - Labs Abnormal Lab Results - Last 24 Hours (Table) 11/26/18 Range/Units 10:28 POC Glucose (mg/dL) 103 H (75-99) mg/dL Assessment and Plan (1) Esophageal cancer Narrative/Plan: Will proceed with Port-A-Cath placement at this time. Risks of bleeding, infection, DVT, pneumothorax, catheter malfunction, anesthesia related complications were discussed. The patient understands and wishes to proceed. Current Visit: Yes Status: Acute Code(s): C15.9 - MALIGNANT NEOPLASM OF ESOPHAGUS, UNSPECIFIED SNOMED Code(s): 060549070
[2018-11-26] MEDS ORDERED: fentaNYL (PF) 50 MCG/ML 2 ML AMP ONE (11:06)
[2018-11-26] MEDS ORDERED: KETAMINE 10 MG/ML 20 ML VIAL ONE (11:06)
[2018-11-26] MEDS ORDERED: MIDAZOLAM 2 MG/2 ML VIAL ONE (11:06)
[2018-11-26] MEDS ORDERED: PROPOFOL 10 MG/ML 20 ML VIAL IV ONE (11:06)
[2018-11-26] MEDS ORDERED: SODIUM CHLORIDE 0.9% 100 ML with ceFAZolin 2,000 MG IV ONE ×2 (11:18)
[2018-11-26] MEDS ORDERED: HEPARIN SODIUM,PORCINE 100 UNIT/ML 5 ML VIAL IV ONE (11:37)
[2018-11-26] MEDS ORDERED: LIDOCAINE (PF) 10 MG/ML 2 ML VIAL SQ ONE (11:37)
[2018-11-26] MEDS ORDERED: HYDROcodone/APAP 5-325MG 1 EACH TAB PO PRN (11:51)
[2018-11-26] MEDS ORDERED: NALOXONE 0.4 MG/ML 1 ML VIAL IV PRN (11:51)
--- NOTE | 2018-11-26 11:53 | P.OP ---
Date of Procedure: 11/26/18 Procedure(s) Performed: PREOPERATIVE DIAGNOSIS: Esophageal cancer POSTOPERATIVE DIAGNOSIS: Same PROCEDURE: Port-A-Cath placement SURGEON: Joanne EBL: Minimal ANESTHESIA: Sedation COMPLICATIONS: None OPERATIVE PROCEDURE: Patient was brought and placed on the operative table in the supine position. The patient was sedated per anesthesia that time. The chest and neck were prepped and draped in usual sterile fashion. The ultrasound probe was used to identify the location of the right internal jugular vein. The skin was localized with lidocaine. The Seldinger needle was advanced into the IJ under ultrasound guidance. The wire was advanced through the needle under fluoroscopic guidance into the superior vena cava. A port pocket was created in the right infraclavicular location. The catheter was tunneled from the wire entrance site to the port pocket. The port was then connected to the catheter. The dilator introducer was threaded over the guidewire. The guidewire and dilator were then removed. The catheter was advanced through the introducer and introducer was then removed. The tip was seen to be in the right atrial junction. Port was flushed with both saline and a Hep-Lock solution. There was good flow both in and out of the port. The port was sutured in underlying tissues using 3-0 silk sutures. The subcutaneous tissues were reapproximated using 3-0 Vicryl sutures and the skin at both locations using 4-0 Monocryl sutures. Skin glue and sterile dressings then applied. DISPOSITION: Stable to recovery room
[2018-11-26 11:59] VITALS: TEMP 97.2
--- NOTE | 2018-11-26 12:05 | FL ---
EXAMINATION TYPE: FL guided central line placemt DATE OF EXAM: 11/26/2018 CLINICAL HISTORY: Fluoroscopic documentation during Mediport placement. TECHNIQUE: Fluoroscopy. COMPARISON: None. FINDINGS: Fluoroscopic guidance was provided during procedure performed by Dr. Rubio. A total of 2 seconds of fluoroscopic time was utilized during the procedure and 1 spot images was acquired during Mediport placement. IMPRESSION: As Above.
[2018-11-26 12:08] VITALS: RESP 18
--- NOTE | 2018-11-26 12:24 | XR ---
EXAMINATION TYPE: XR chest 1V confirm line [facility] DATE OF EXAM: 11/26/2018 COMPARISON: 10/31/2016 HISTORY: Check line placement. TECHNIQUE: Single frontal view of the chest is obtained. FINDINGS: Innumerable bilateral pulmonary nodules are redemonstrated. Right-sided Mediport terminate s in the distal superior vena cava near the cavoatrial junction, appropriately placed. No postprocedu ral pneumothorax. Cardiomediastinal silhouette is within normal limits of size but shifted towards th e right secondary to patient positioning. IMPRESSION: Newly placed right-sided central venous catheter in this patient with known innumerable bilateral pulmonary nodules and a primary esophageal carcinoma. No postprocedural pneumothorax.
[2018-11-26 12:55] LABS: Glucose,Whole Blood 106 mg/dL (75-99)
[2018-11-26 13:06] VITALS: BP 138/77; PULSE 69
== END 2018-11-26 13:01 | disposition home or self-care (01) ==
LOC: OR 09:58
PROVIDERS: ATTEND Surgery
DX: C15.9 Malignant neoplasm of esophagus, unspecified (principal); C79.9 Secondary malignant neoplasm of unspecified site; G89.3 Neoplasm related pain (acute) (chronic); E11.9 Type 2 diabetes mellitus without complications; I10 Essential (primary) hypertension; M19.90 Unspecified osteoarthritis, unspecified site; N42.9 Disorder of prostate, unspecified; K44.9 Diaphragmatic hernia without obstruction or gangrene; K21.9 Gastro-esophageal reflux disease without esophagitis; F39 Unspecified mood [affective] disorder; Z85.9 Personal history of malignant neoplasm, unspecified; Z86.73 Personal history of transient ischemic attack (TIA), and cerebral infarction without residual deficits; Z87.448 Personal history of other diseases of urinary system; Z86.79 Personal history of other diseases of the circulatory system; Z90.49 Acquired absence of other specified parts of digestive tract; Z95.828 Presence of other vascular implants and grafts; Z87.891 Personal history of nicotine dependence; Z79.82 Long term (current) use of aspirin; Z79.899 Other long term (current) drug therapy; Z79.84 Long term (current) use of oral hypoglycemic drugs; Z79.52 Long term (current) use of systemic steroids; Z79.891 Long term (current) use of opiate analgesic; Z80.0 Family history of malignant neoplasm of digestive organs
CPT/HCPCS: 36561; 76937; 77001; C1788; J2250; J2001; J1644; J1642; J0690; J3010; J2704

== ENCOUNTER 2018-12-07 14:27 | Inpatient (IN) | payer MEDICARE ==
[2018-12-07] MEDS ORDERED: IPRATROPIUM-ALBUTEROL 3 ML NEB INHALATION STA (15:22)
--- NOTE | 2018-12-07 15:26 | ED ---
General Adult HPI - General Chief complaint: Shortness of Breath Stated complaint: SOB, Legs swelling, Confused Time Seen by Provider: 12/07/18 14:53 Source: patient, family, RN notes reviewed Mode of arrival: wheelchair Limitations: no limitations - History of Present Illness Initial comments: Patient is a pleasant 68-year-old male with known stage IV esophageal cancer presenting to the emergency department shortness of breath. Patient has been in and out of the hospital recently. Patient has had dyspnea over the past couple of weeks, worse the past few days. Patient did have some morphine yesterday. Patient did go to chemotherapy today. Patient has been generally weak since that time. No isolated area of weakness. Patient's breathing is worse. Patient is having edema of his legs and somewhat of the arms, more so on the left side. Occasional cough. Patient is unable to walk on his own anymore. - Related Data Home Medications Medication Instructions Recorded Confirmed Aspirin 81 mg PO DAILY 08/11/18 12/07/18 QUEtiapine [SEROquel] 50 mg PO BID 08/11/18 12/07/18 Tamsulosin [Flomax] 0.4 mg PO BID 08/11/18 12/07/18 hydrALAZINE HCL [Apresoline] 50 mg PO TID 08/11/18 12/07/18 metFORMIN HCL [Glucophage] 500 mg PO BID 08/11/18 12/07/18 Diltiazem HCl 30 mg PO Q8HR 11/25/18 12/07/18 Docusate [Colace] 100 mg PO DAILY 11/25/18 12/07/18 Gabapentin [Neurontin] 300 mg PO TID 11/25/18 12/07/18 HYDROcodone/APAP 10-325MG [[place] 1 tab PO Q6HR PRN 11/25/18 12/07/18 10-325] Morphine Sulfate ER [Ms Contin] 30 mg PO Q8H 11/25/18 12/07/18 Pantoprazole Sodium [Protonix] 40 mg PO DAILY 11/25/18 12/07/18 Pravastatin Sodium [Pravachol] 20 mg PO HS 11/25/18 12/07/18 Dexamethasone [Hexadrol] 2 mg PO TID 12/07/18 12/07/18 Allergies Allergy/AdvReac Type Severity Reaction Status Date / Time No Known Allergies Allergy Verified 12/07/18 15:48 Review of Systems ROS Statement: Those systems with pertinent positive or pertinent negative responses have been documented in the HPI. ROS Other: All systems not noted in ROS Statement are negative. Constitutional: Denies: fever Eyes: Denies: eye pain ENT: Denies: ear pain Respiratory: Reports: dyspnea. Denies: cough Cardiovascular: Denies: chest pain Endocrine: Denies: fatigue Gastrointestinal: Denies: abdominal pain Genitourinary: Denies: dysuria Musculoskeletal: Denies: back pain Skin: Denies: rash Neurological: Reports: as per HPI, weakness. Denies: headache Past Medical History Past Medical History: Cancer, CVA/TIA, Diabetes Mellitus, Hypertension, Osteoarthritis (OA), Prostate Disorder, Renal Disease Additional Past Medical History / Comment(s): TIA 2012-no residual effects, hx. aortic aneurysm, decreased kidney function, small hiatal hernia. Esophageal cancer, bone cancer History of Any Multi-Drug Resistant Organisms: None Reported Past Surgical History: Appendectomy Additional Past Surgical History / Comment(s): APPY (4 YRS OLD), COLONOSCOPY, abd. aortic stent 2014 Past Anesthesia/Blood Transfusion Reactions: No Reported Reaction Past Psychological History: Schizoaffective Disorder Smoking Status: Former smoker Past Alcohol Use History: None Reported Past Drug Use History: Marijuana - Past Family History Father Family Medical History: Cancer Additional Family Medical History / Comment(s): COLO-RECTAL CA. GRANDFATHER- COLO-RECTAL CANCER ALSO General Exam Limitations: no limitations General appearance: alert, in no apparent distress Head exam: Present: normocephalic Eye exam: Present: normal appearance, PERRL ENT exam: Present: other (Severe white coating over the tongue and entire oropharynx consistent with severe thrush) Neck exam: Present: normal inspection Respiratory exam: Present: wheezes Cardiovascular Exam: Present: tachycardia GI/Abdominal exam: Present: soft. Absent: tenderness Extremities exam: Present: pedal edema Neurological exam: Present: alert, oriented X3. Absent: motor sensory deficit Psychiatric exam: Present: flat affect Skin exam: Present: normal color Course Vital Signs 12/07/18 12/07/18 12/07/18 14:37 14:45 14:51 Temperature 97.8 F Pulse Rate 109 H 97 Respiratory 20 21 20 Rate Blood Pressure 127/79 O2 Sat by Pulse 92 L 96 Oximetry 12/07/18 12/07/18 12/07/18 15:00 15:48 15:55 Temperature Pulse Rate 102 H 104 H 105 H Respiratory 21 18 18 Rate Blood Pressure 136/82 O2 Sat by Pulse 96 Oximetry 12/07/18 12/07/18 12/07/18 16:00 17:00 18:00 Temperature 98.3 F Pulse Rate 98 95 97 Respiratory 19 20 19 Rate Blood Pressure 134/95 129/84 134/89 O2 Sat by Pulse 96 95 95 Oximetry 12/07/18 12/07/18 19:00 19:03 Temperature Pulse Rate 92 95 Respiratory 18 19 Rate Blood Pressure 132/77 O2 Sat by Pulse 94 L 95 Oximetry EKG Findings - EKG Comments: EKG Findings:: Sinus tachycardia 107. WI 134. QRS 88. QT 326. QTc 435. Normal axis. Normal QRS. No acute ST change. Medical Decision Making - Medical Decision Making Patient reevaluated. Patient states pain is some what more controlled with morphine. Patient family updated on results and plan. does have the patient did receive a lot of fluids with chemotherapy today. Case was discussed in detail with Dr. latham as well as Dr. salcedo with oncology. Patient will be admitted with further testing and cardiology consult. - Lab Data Result diagrams: 12/07/18 16:50 12/07/18 16:50 Lab Results 12/07/18 12/07/18 12/07/18 Range/Units 16:50 16:50 16:50 WBC 9.7 (3.8-10.6) k/uL RBC 3.25 L (4.30-5.90) m/uL Hgb 10.4 L (13.0-17.5) gm/dL Hct 30.1 L (39.0-53.0) % MCV 92.7 (80.0-100.0) fL MCH 32.0 (25.0-35.0) pg MCHC 34.5 (31.0-37.0) g/dL RDW 16.9 H (11.5-15.5) % Plt Count 106 L (150-450) k/uL Neutrophils % 94 % Lymphocytes % 2 % Monocytes % 3 % Eosinophils % 0 % Basophils % 1 % Neutrophils # 9.1 H (1.3-7.7) k/uL Lymphocytes # 0.2 L (1.0-4.8) k/uL Monocytes # 0.3 (0-1.0) k/uL Eosinophils # 0.0 (0-0.7) k/uL Basophils # 0.1 (0-0.2) k/uL Anisocytosis Slight PT (9.0-12.0) sec INR (<1.2) APTT (22.0-30.0) sec Sodium 125 L (137-145) mmol/L Potassium 5.0 (3.5-5.1) mmol/L Chloride 96 L (98-107) mmol/L Carbon Dioxide 23 (22-30) mmol/L Anion Gap 6 mmol/L BUN 25 H (9-20) mg/dL Creatinine 0.76 (0.66-1.25) mg/dL Est GFR (CKD-EPI)AfAm >90 (>60 ml/min/1.73 sqM) Est GFR (CKD-EPI)NonAf >90 (>60 ml/min/1.73 sqM) Glucose 137 H (74-99) mg/dL Calcium 8.0 L (8.4-10.2) mg/dL Magnesium 1.9 (1.6-2.3) mg/dL Total Bilirubin 0.5 (0.2-1.3) mg/dL AST 31 (17-59) U/L ALT 54 (21-72) U/L Alkaline Phosphatase 95 (38-126) U/L Troponin I (0.000-0.034) ng/mL NT-Pro-B Natriuret Pep 723 pg/mL Total Protein 5.1 L (6.3-8.2) g/dL Albumin 2.7 L (3.5-5.0) g/dL Urine Color Urine Appearance (Clear) Urine pH (5.0-8.0) Ur Specific [place] (1.001-1.035) Urine Protein (Negative) Urine Glucose (UA) (Negative) Urine Ketones (Negative) Urine Blood (Negative) Urine Nitrite (Negative) Urine Bilirubin (Negative) Urine Urobilinogen (<2.0) mg/dL Ur Leukocyte Esterase (Negative) 12/07/18 12/07/18 12/07/18 Range/Units 16:50 16:50 17:43 WBC (3.8-10.6) k/uL RBC (4.30-5.90) m/uL Hgb (13.0-17.5) gm/dL Hct (39.0-53.0) % MCV (80.0-100.0) fL MCH (25.0-35.0) pg MCHC (31.0-37.0) g/dL RDW (11.5-15.5) % Plt Count (150-450) k/uL Neutrophils % % Lymphocytes % % Monocytes % % Eosinophils % % Basophils % % Neutrophils # (1.3-7.7) k/uL Lymphocytes # (1.0-4.8) k/uL Monocytes # (0-1.0) k/uL Eosinophils # (0-0.7) k/uL Basophils # (0-0.2) k/uL Anisocytosis PT 9.6 (9.0-12.0) sec INR 0.9 (<1.2) APTT 20.7 L (22.0-30.0) sec Sodium (137-145) mmol/L Potassium (3.5-5.1) mmol/L Chloride (98-107) mmol/L Carbon Dioxide (22-30) mmol/L Anion Gap mmol/L BUN (9-20) mg/dL Creatinine (0.66-1.25) mg/dL Est GFR (CKD-EPI)AfAm (>60 ml/min/1.73 sqM) Est GFR (CKD-EPI)NonAf (>60 ml/min/1.73 sqM) Glucose (74-99) mg/dL Calcium (8.4-10.2) mg/dL Magnesium (1.6-2.3) mg/dL Total Bilirubin (0.2-1.3) mg/dL AST (17-59) U/L ALT (21-72) U/L Alkaline Phosphatase (38-126) U/L Troponin I 0.054 H* (0.000-0.034) ng/mL NT-Pro-B Natriuret Pep pg/mL Total Protein (6.3-8.2) g/dL Albumin (3.5-5.0) g/dL Urine Color Yellow Urine Appearance Clear (Clear) Urine pH 6.0 (5.0-8.0) Ur Specific [place] 1.015 (1.001-1.035) Urine Protein Negative (Negative) Urine Glucose (UA) Negative (Negative) Urine Ketones Negative (Negative) Urine Blood Negative (Negative) Urine Nitrite Negative (Negative) Urine Bilirubin Negative (Negative) Urine Urobilinogen <2.0 (<2.0) mg/dL Ur Leukocyte Esterase Negative (Negative) - Radiology Data Radiology results: image reviewed (Chest x-ray shows fluid overload with trace pleural effusions and mild interstitial edema.) Disposition Clinical Impression: Fluid overload, Esophageal cancer, Hyponatremia Disposition: ADMITTED IP TO THIS HOSP Is patient prescribed a controlled substance at d/c from ED?: No Referrals: Alo Latham MD [Primary Care Provider] - 1-2 days Decision Time: 19:59
--- NOTE | 2018-12-07 15:51 | XR ---
EXAMINATION TYPE: XR chest 2V DATE OF EXAM: 12/07/2018 COMPARISON: 11/26/2018 HISTORY: Shortness of breath TECHNIQUE: Frontal and lateral views of the chest are obtained. FINDINGS: There are new trace bilateral pleural effusions and mild interstitial pulmonary edema. Car diomediastinal silhouette is mildly enlarged. Right-sided Mediport is cannulated with a single Heubne r needle. No new focal consolidation or sizable pneumothorax seen. Moderate degenerative changes of t he thoracic spine. IMPRESSION: Findings favoring cardiogenic fluid overload with trace pleural effusions and mild inter stitial pulmonary edema.
[2018-12-07 17:19] LABS: ALT 54 U/L (21-72); AST 31 U/L (17-59); African American GFR (CKD) >90 (>60 ml/min/1.73 sqM); Albumin 2.7 g/dL (3.5-5.0); Alkaline Phosphatase 95 U/L (38-126); Anion Gap 6 mmol/L; Blood Urea Nitrogen 25 mg/dL (9-20); Carbon Dioxide 23 mmol/L (22-30); Chloride 96 mmol/L (98-107); Glucose 137 mg/dL (74-99); Magnesium 1.9 mg/dL (1.6-2.3); Sodium 125 mmol/L (137-145); Total Bilirubin 0.5 mg/dL (0.2-1.3); Total Protein 5.1 g/dL (6.3-8.2)
[2018-12-07 17:35] LABS: INR 0.9 (<1.2); Prothrombin Time 9.6 sec (9.0-12.0)
[2018-12-07 17:40] LABS: Partial Thromboplastin Time 20.7 sec (22.0-30.0)
[2018-12-07 17:53] LABS: Anisocytosis Slight; Basophils # (A) 0.1 k/uL (0-0.2); Basophils % (A) 1 %; Eosinophils % (A) 0 %; HCT 30.1 % (39.0-53.0); HGB 10.4 gm/dL (13.0-17.5); Lymphocytes # (A) 0.2 k/uL (1.0-4.8); Lymphocytes % (A) 2 %; MCHC 34.5 g/dL (31.0-37.0); MCV 92.7 fL (80.0-100.0); Monocytes # (A) 0.3 k/uL (0-1.0); Monocytes % (A) 3 %; Neutrophils # (A) 9.1 k/uL (1.3-7.7); Neutrophils % (A) 94 %; Platelet Count 106 k/uL (150-450); RBC 3.25 m/uL (4.30-5.90); RDW 16.9 % (11.5-15.5); WBC 9.7 k/uL (3.8-10.6)
[2018-12-07 17:55] LABS: Appearance,Urine Clear (Clear); Bilirubin,Urine Negative (Negative); Blood,Urine Negative (Negative); Color,Urine Yellow; Glucose,Urine (UA) Negative (Negative); Ketones,Urine Negative (Negative); Leukocyte Esterase,Urine Negative (Negative); Nitrite,Urine Negative (Negative); Protein,Urine Negative (Negative); Specific Gravity,Urine 1.015 (1.001-1.035); Urobilinogen,Urine <2.0 mg/dL (<2.0)
[2018-12-07] MEDS ORDERED: MORPHINE SULFATE 4 MG/ML SYRINGE IVP STA (19:05)
[2018-12-07] MEDS ORDERED: ASPIRIN 325 MG TAB PO STA (19:59)
[2018-12-07] MEDS: NYSTATIN 100,000 UNIT/ML SUSP 500,000 UNIT/5 ML CUP PO SCH (21:54)
[2018-12-07] MEDS: FUROSEMIDE 10 MG/ML 4 ML VIAL IV SCH (21:54)
--- NOTE | 2018-12-08 00:20 | US ---
ADDENDUM - Added by Edenilson De Santiago M.D. on 12/08/2018 12:31 AM (-07:00) Please ignore the previous report. The correct report is as follows: EXAM: US Duplex Left Upper Extremity Veins CLINICAL HISTORY: ITS.REASON US Reason: swelling TECHNIQUE: Real-time duplex ultrasound scan of the left upper extremity veins integrating B-mode two-dimensional vascular structure, Doppler spectral analysis, color flow Doppler imaging and compression. COMPARISON: Left lower extremity DVT ultrasound 11/24/18 FINDINGS: Deep veins: Unremarkable. No DVT. The veins demonstrate normal color flow, are normally compressible, with normal phasic flow and/or augmentation response. Superficial veins: Unremarkable. No thrombus in the visualized great saphenous vein. Soft tissues: No acute findings. No mass or adenopathy. IMPRESSION: No DVT. EXAM: US Duplex Left Lower Extremity Veins CLINICAL HISTORY: ITS.REASON US Reason: swelling TECHNIQUE: Real-time duplex ultrasound scan of the left lower extremity veins integrating B-mode two-dimensional vascular structure, Doppler spectral analysis, color flow Doppler imaging and compression. COMPARISON: Left lower extremity DVT ultrasound 11/24/18 FINDINGS: Deep veins: Unremarkable. No DVT in the visualized common femoral, femoral, proximal deep femoral or popliteal veins. The veins demonstrate normal color flow, are normally compressible, with normal phasic flow and/or augmentation response. Superficial veins: Unremarkable. No thrombus in the visualized great saphenous vein. Soft tissues: No acute findings. No popliteal cyst. IMPRESSION: No DVT. <MYCVCSECTION> Critical Value Communications 12/08/18 00:34 Call From [facility] on 12/08 00:28 (-04:00) 12/08/18 00:36 Verify Receipt with Nurse Verified receipt with ABRAN LOPEZ on [address] [place] [address] on 12/08 00:36 (-04:00)
[2018-12-08] MEDS: MORPHINE SULFATE ER 30 MG TABLET PO SCH ×3 (02:29→17:41)
[2018-12-08 06:13] LABS: Anisocytosis Slight; HCT 31.1 % (39.0-53.0); HGB 10.8 gm/dL (13.0-17.5); MCH 32.6 pg (25.0-35.0); MCHC 34.9 g/dL (31.0-37.0); MCV 93.3 fL (80.0-100.0); Platelet Count 110 k/uL (150-450); RBC 3.33 m/uL (4.30-5.90); RDW 16.8 % (11.5-15.5)
[2018-12-08 06:14] LABS: Glucose,Whole Blood 96 mg/dL (75-99)
[2018-12-08 06:23] LABS: ALT 57 U/L (21-72); AST 28 U/L (17-59); African American GFR (CKD) >90 (>60 ml/min/1.73 sqM); Albumin 2.7 g/dL (3.5-5.0); Alkaline Phosphatase 90 U/L (38-126); Anion Gap 6 mmol/L; Blood Urea Nitrogen 27 mg/dL (9-20); Calcium 8.1 mg/dL (8.4-10.2); Carbon Dioxide 26 mmol/L (22-30); Chloride 96 mmol/L (98-107); Glucose 84 mg/dL (74-99); Potassium 4.1 mmol/L (3.5-5.1); Sodium 128 mmol/L (137-145); Total Bilirubin 0.6 mg/dL (0.2-1.3); Total Protein 5.1 g/dL (6.3-8.2)
[2018-12-08] MEDS ORDERED: DILTIAZEM ORAL 30 MG TAB PO SCH (08:00)
[2018-12-08 08:05] LABS: Band Neutrophils % 1 %; Eosinophils # (M) 0.08 k/uL (0-0.7); Lymphocytes # (M) 0.31 k/uL (1.0-4.8); Metamyelocytes # (M) 0.08 k/uL (0); Metamyelocytes % 1 %; Monocytes # (M) 0.23 k/uL (0-1.0); Neutrophils % (M) 91 %; Nucleated Red Blood Cells 3 /100 WBC (0-0); Total Cells Counted 200; WBC 7.8 k/uL (3.8-10.6)
[2018-12-08 08:06] LABS: Polychromasia Present
[2018-12-08] MEDS: FUROSEMIDE 10 MG/ML 4 ML VIAL IV SCH ×2 (09:00→22:33)
[2018-12-08] MEDS ORDERED: hydrALAZINE HCL 50 MG TAB PO SCH (09:00)
[2018-12-08] MEDS: HYDROcodone/APAP 10-325MG 1 EACH TAB PO PRN (09:01)
[2018-12-08] MEDS: METOPROLOL SUCCINATE (ER) 25 MG TAB.ER.24H PO SCH (09:01)
[2018-12-08] MEDS: QUEtiapine 50 MG TAB PO SCH ×2 (09:01→20:30)
[2018-12-08] MEDS: TAMSULOSIN 0.4 MG CAP.ER.24H PO SCH ×2 (09:01→20:30)
[2018-12-08] MEDS: PANTOPRAZOLE 40 MG TABLET PO SCH (09:01)
[2018-12-08] MEDS: GABAPENTIN 300 MG CAP PO SCH ×3 (09:01→20:30)
[2018-12-08] MEDS: DOCUSATE 100 MG CAP PO SCH (09:01)
[2018-12-08] MEDS: metFORMIN 500 MG TAB PO SCH ×2 (09:01→20:30)
[2018-12-08] MEDS: ASPIRIN 325 MG TAB PO SCH (09:01)
[2018-12-08] MEDS: NYSTATIN 100,000 UNIT/ML SUSP 500,000 UNIT/5 ML CUP PO SCH ×4 (09:12→21:14)
[2018-12-08] MEDS: DEXAMETHASONE 2 MG TAB PO SCH ×3 (09:12→21:14)
[2018-12-08] MEDS ORDERED: LISINOPRIL 10 MG TAB PO SCH (10:00)
--- NOTE | 2018-12-08 12:00 | ECHOF ---
Referral Reason:fluid overload MEASUREMENTS -------- HEIGHT: 175.3 cm WEIGHT: 87.1 kg BP: RVIDd: 2.8 cm (< 3.3) IVSd: 1.6 cm (0.6 - 1.1) LVIDd: 3.7 cm (3.9 - 5.3) LVPWd: 1.7 cm (0.6 - 1.1) IVSs: 2.2 cm LVIDs: 2.8 cm LVPWs: 2.2 cm Ao Diam: 3.3 cm (2.0 - 3.7) AV Cusp: 1.3 cm (1.5 - 2.6) LA Diam: 3.5 cm (2.7 - 3.8) MV EXCURSION: 22.907 mm (> 18.000) MV EF SLOPE: 165 mm/s (70 - 150) EPSS: 0.4 cm MV E Rodriguez: 0.54 m/s MV DecT: 217 ms MV A Rodriguez: 0.88 m/s MV E/A Ratio: 0.61 FINDINGS -------- Undetermined rhythm. This was a technically adequate study. The left ventricular size is normal. There is moderate concentric left ventricular hypertrophy. O verall left ventricular systolic function is normal with, an EF between 60 - 65 %. The right ventricle is normal in size. The left atrial size is normal. The right atrial size is normal. IAS not well Visualized. There is mild aortic valve sclerosis. There is no evidence of aortic regurgitation. Mild mitral annular calcification present. Mild mitral regurgitation is present. Mild tricuspid regurgitation present. Right ventricular systolic pressure is normal at < 35 mmHg. There is no evidence of pulmonary hypertension. There is no pulmonic regurgitation present. The aortic root size is normal. Echo free space may represent effusion or a pericardial fat pad. CONCLUSIONS -------- 1. Undetermined rhythm. 2. This was a technically adequate study. 3. The left ventricular size is normal. 4. There is moderate concentric left ventricular hypertrophy. 5. Overall left ventricular systolic function is normal with, an EF between 60 - 65 %. 6. The left atrial size is normal. 7. The right atrial size is normal. 8. IAS not well Visualized. 9. There is mild aortic valve sclerosis. 10. Mild mitral annular calcification present. 11. Mild mitral regurgitation is present. 12. Mild tricuspid regurgitation present. 13. Right ventricular systolic pressure is normal at < 35 mmHg. 14. There is no evidence of pulmonary hypertension. 15. The aortic root size is normal. 16. Echo free space may represent effusion or a pericardial fat pad. SINTER MACHINE OPERATOR: Susana Holguin RDCS
[2018-12-08 12:05] LABS: Glucose,Whole Blood 166 mg/dL (75-99)
--- NOTE | 2018-12-08 12:18 | CONS ---
CONSULTATION CHIEF COMPLAINT: Shortness of breath, leg edema and left arm swelling. Mike is a 68-year-old gentleman with history of metastatic esophageal cancer, status post chemo and radiation therapy who presented to hospital complaining of shortness of breath. He has had shortness of breath for the last week that has been particularly worse over the last few days. It is mild to moderate intensity, comes on with exertion. Patient is under pain secondary to metastatic cancer. He has mets involving his back and had recently undergone laminectomy. The patient has severe bilateral leg edema and also has swelling in the left arm. He presented to hospital with these symptoms and underwent a venous duplex of the left arm that did not show any DVT. PAST MEDICAL HISTORY: Significant for metastatic esophageal cancer, hypertension, diabetes. CURRENT MEDICATIONS: Include aspirin, Flomax, hydralazine 50 t.i.d., metformin 500 b.i.d., Cardizem 30 q.8, Colace, Neurontin, [place], MS Contin, Protonix, Pravachol, and . ALLERGIES: There are no known drug allergies. FAMILY HISTORY: Negative for premature coronary artery disease. SOCIAL HISTORY: Significant for smoking that he quit recently. PAST SURGICAL HISTORY: Significant for abdominal aortic aneurysm, hiatal hernia and TIA. REVIEW OF SYSTEMS: HEENT: Unremarkable. CARDIAC: As described above. RESPIRATORY: As described above. GI: As described above. GENITOURINARY: Negative. ALLERGY: None. SKIN: Negative. MUSCULOSKELETAL: Significant for arthritis. PSYCHOSOCIAL: Negative. ENDOCRINE: Negative. DERM: Negative. CONSTITUTIONAL: Negative. ONCOLOGICAL: Significant for metastatic cancer. Rest of the system review is not relevant. PHYSICAL EXAM: Heart rate is 110 beats per minute. Blood pressure is 111/70, respiratory rate is 18. Afebrile. There is no jugular venous distention. Carotid upstroke is diminished. There is no bruit. Chest exam reveals good air entry bilaterally. Heart exam reveals first and second heart sounds. No gallop. Has no murmur. Abdomen is soft. Exam of extremities reveals bilateral 3 to 4+ leg edema and his left arm is edematous. LABS: Show that the hemoglobin is 10.8, platelet count is 110. Potassium is 4.1, creatinine is 0.9, tropes are elevated at 0.05, 0.06 and 0.07. BNP is elevated at 1080. EKG shows sinus tachycardia with evidence of prior lateral wall myocardial infarction and nonspecific ST-T wave changes. ASSESSMENT: 1. Acute onset congestive heart failure, probably diastolic. 2. Elevated troponins, probably related to underlying malignancy, recent chemo- radiation or could be due to a non ST-segment elevation myocardial infarction. 3. Metastatic esophageal cancer. PLAN: I will treat the patient with intravenous diuretics. Stop the Cardizem that he is on. Start beta blockers, continue the hydralazine that he is on. We may stop the hydralazine and start him on ONDINA inhibitors. Obtain a 2D echo to document his LV function. MMODL / IJN: [id number] /
[2018-12-08] MEDS: MORPHINE SULFATE 2 MG/ML SYRINGE IVP PRN ×3 (13:45→20:31)
--- NOTE | 2018-12-08 14:23 | XR ---
EXAMINATION TYPE: XR knee complete LT DATE OF EXAM: 12/08/2018 COMPARISON: NONE HISTORY: Pain TECHNIQUE: Four views are submitted. FINDINGS: Hypertrophic change along the medial compartment of the knee joint is seen with no erosive changes. V ascular calcifications are seen. No diagnostic evidence of metastases. Osseous structures are intact. No acute fracture seen. IMPRESSION: 1. No intraosseous lesion identified.
--- NOTE | 2018-12-08 14:23 | XR ---
EXAMINATION TYPE: XR Hip Complete LT, XR femur LT DATE OF EXAM: 12/08/2018 CLINICAL HISTORY: Left hip pain. Possible metastasis. TECHNIQUE: AP and frogleg views of the left hip are obtained. 2 views of the left femur. COMPARISON: 09/08/2018. FINDINGS: There is no acute fracture/dislocation evident in the left hip. Left femur demonstrates n o acute fracture or dislocation. The joint space in the left hip appears aligned with mild joint spac e narrowing and over coverage of the acetabulum. No suspicious osseous lesion. The overlying soft ti ssue appears unremarkable. Vascular stents are partially visualized in the pelvis. IMPRESSION: There is no acute fracture or dislocation in the left hip nor femur. No suspicious osseo us lesion is seen. Nuclear medicine bone scan could assess for metastasis.
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
[2018-12-08] MEDS: IPRATROPIUM-ALBUTEROL 3 ML NEB INHALATION SCH ×2 (15:22→19:39)
[2018-12-08 16:46] LABS: Glucose,Whole Blood 221 mg/dL (75-99)
[2018-12-08] MEDS: PRAVASTATIN SODIUM 20 MG TAB PO SCH (20:30)
[2018-12-08 21:17] LABS: Glucose,Whole Blood 189 mg/dL (75-99)
--- NOTE | 2018-12-09 01:16 | P.CONS ---
History of Present Illness - Reason for Consult Consult date: 12/08/18 Dyspnea, Metastatic esophageal ca - History of Present Illness Patient is a68 y.o.malewhopresented with progressive low back pain since July 2018, he was found to have large paraspinal lesion with extensive bone destruction > transferred to [facility], CT Scan of chest revealed lower Esophageal thickening, EGD on 10/06/18 )Dr Hernandez) revealed 10 cm ulcerated lesion starting at 30 cm from incisors, Bx revealed moderately to well differentianted Adenocarcinoma. He was taken to OR by Dr Edwards on 10/07/18, had Laminectomy and Vertebroplasty (L5) > Bx confirmed metastatic Adenocarcinoma. The patient was seen by Dr Maria> CARIS study mostly negative (P53 mutated), PD-L1 negative, JERRY, Her2 Negative by FISH. He received palliative Radiation therapy by Dr Lemon, pain is reasonably controlled. He reported 30-40 LBS weight loss in last 3-4 months, has multiple SQ lesions, PET Scan revealed diffuse bone and soft tisse metastatic disease. Hewasambulating with walker, performence status slowly declining. 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 He denied family history of malignancy. He completed palliative radiation around 11/26/2018. He is status post port placement the patient was supposedto start palliative chemotherapywith FOLFOX on 12/07/18 He was admitted to [facility] on 11/28/18, with generalized weakness and difficulty walking. He improved with hydration, and was discharged. He presented for chemotherapy on 12/07/18, but at that time was complaining of marked weakness, fall with trauma to his left hip area, and shortness of breath. Shortness of breath was worsened with lying down and improved with sitting up. He was therefore sent in to the hospital, and admitted further management, and consult placed Review of Systems Constitutional: Reports poor appetite, Reports weakness, Reports weight loss Eyes: denies blurred vision, denies pain Ears, nose, mouth and throat: Denies headache, Denies sore throat Cardiovascular: Reports edema, Reports orthopnea, Reports shortness of breath Respiratory: Reports dyspnea Gastrointestinal: Denies abdominal pain, Denies diarrhea, Denies nausea, Denies vomiting Genitourinary: Reports as per HPI Musculoskeletal: Reports low back pain, Reports muscle weakness Musculoskeletal: left: hip pain, hip stiffness Integumentary: Reports lesions (skin lesions) Neurological: Reports gait dysfunction, Reports weakness Psychiatric: Reports anxiety, Reports depression Endocrine: Reports fatigue, Reports weight change Hematologic/Lymphatic: Reports as per HPI Past Medical History Past Medical History: Cancer, CVA/TIA, Diabetes Mellitus, Hypertension, Osteoarthritis (OA), Prostate Disorder, Renal Disease Additional Past Medical History / Comment(s): TIA 2012-no residual effects, hx. aortic aneurysm with stent placement, decreased kidney function, small hiatal hernia. Esophageal cancer, spinal cancer; laminectomy History of Any Multi-Drug Resistant Organisms: None Reported Past Surgical History: Appendectomy Additional Past Surgical History / Comment(s): APPY (4 YRS OLD), COLONOSCOPY, abd. aortic stent 2014 Past Anesthesia/Blood Transfusion Reactions: No Reported Reaction Past Psychological History: Schizoaffective Disorder Additional Psychological History / Comment(s): controlled by medication Smoking Status: Former smoker Past Alcohol Use History: None Reported Additional Past Alcohol Use History / Comment(s): down to 10 cigs/day from 1ppd, quit 10/01/18started in high school, Past Drug Use History: Marijuana Additional Drug Use History / Comment(s): MARIJUANA-occasional use - Past Family History Father Family Medical History: Cancer Additional Family Medical History / Comment(s): COLO-RECTAL CA. GRANDFATHER- COLO-RECTAL CANCER ALSO Medications and Allergies Home Medications Medication Instructions Recorded Confirmed Type Aspirin 81 mg PO DAILY 08/11/18 12/07/18 History QUEtiapine [SEROquel] 50 mg PO BID 08/11/18 12/07/18 History Tamsulosin [Flomax] 0.4 mg PO BID 08/11/18 12/07/18 History hydrALAZINE HCL [Apresoline] 50 mg PO TID 08/11/18 12/07/18 History metFORMIN HCL [Glucophage] 500 mg PO BID 08/11/18 12/07/18 History Diltiazem HCl 30 mg PO Q8HR 11/25/18 12/07/18 History Docusate [Colace] 100 mg PO DAILY 11/25/18 12/07/18 History Gabapentin [Neurontin] 300 mg PO TID 11/25/18 12/07/18 History HYDROcodone/APAP 10-325MG [Ninole 1 tab PO Q6HR PRN 11/25/18 12/07/18 History 10-325] Morphine Sulfate ER [Ms Contin] 30 mg PO Q8H 11/25/18 12/07/18 History Pantoprazole Sodium [Protonix] 40 mg PO DAILY 11/25/18 12/07/18 History Pravastatin Sodium [Pravachol] 20 mg PO HS 11/25/18 12/07/18 History Dexamethasone [Hexadrol] 2 mg PO TID 12/07/18 12/07/18 History Allergies Allergy/AdvReac Type Severity Reaction Status Date / Time No Known Allergies Allergy Verified 12/07/18 15:48 Physical Exam Vitals: Vital Signs Temp Pulse Pulse Resp BP Pulse Ox 12/08/18 20:30 97.5 F L 92 20 96/48 95 12/08/18 19:54 102 H 12/08/18 19:40 100 12/08/18 17:00 97.6 F 97 20 89/44 95 12/08/18 15:38 98 12/08/18 15:22 100 95 12/08/18 12:00 97.8 F 104 H 18 94/49 95 12/08/18 09:00 110 H 20 12/08/18 08:00 98.3 F 110 H 20 111/72 96 12/08/18 03:00 97.9 F 105 H 22 122/76 96 12/07/18 23:46 97.9 F 104 H 18 136/71 95 Intake and Output 12/08/18 12/08/18 12/08/18 06:59 14:59 22:59 Intake Total 240 126 Output Total 1999 600 225 Balance -1999 Intake: Oral 240 126 Output: Urine 1999 600 225 Other: # Voids 1 Weight 87.5 kg 87.5 kg - Constitutional General appearance: mild distress - EENT Eyes: EOMI, PERRLA ENT: hearing grossly normal, normal oropharynx - Neck Neck: no lymphadenopathy Thyroid: bilateral: normal size - Respiratory Respiratory: bilateral: diminished, rales - Cardiovascular Rhythm: regular Heart sounds: normal: S1, S2 - Gastrointestinal General gastrointestinal: normal bowel sounds, soft - Integumentary 2-2.5 cm soft tissue nodule left axilla Integumentary: normal - Neurologic Neurologic: CNII-XII intact - Musculoskeletal Musculoskeletal: generalized weakness, strength equal bilaterally - Psychiatric Psychiatric: A&O x's 3, appropriate affect Results CBC & Chem 7: 12/08/18 05:12 12/08/18 05:12 Labs: Abnormal Lab Results - Last 24 Hours (Table) 12/07/18 12/08/18 12/08/18 Range/Units 23:30 05:12 05:12 RBC (4.30-5.90) m/uL Hgb (13.0-17.5) gm/dL Hct (39.0-53.0) % RDW (11.5-15.5) % Plt Count (150-450) k/uL Lymphocytes # (Manual) (1.0-4.8) k/uL Metamyelocytes # (Man) (0) k/uL Nucleated RBCs (0-0) /100 WBC Sodium 128 L (137-145) mmol/L Chloride 96 L (98-107) mmol/L BUN 27 H (9-20) mg/dL POC Glucose (mg/dL) (75-99) mg/dL Osmolality (280-301) mosm/kg Calcium 8.1 L (8.4-10.2) mg/dL Troponin I 0.062 H* 0.073 H* (0.000-0.034) ng/mL Total Protein 5.1 L (6.3-8.2) g/dL Albumin 2.7 L (3.5-5.0) g/dL 12/08/18 12/08/18 12/08/18 Range/Units 05:12 05:12 11:50 RBC 3.33 L (4.30-5.90) m/uL Hgb 10.8 L (13.0-17.5) gm/dL Hct 31.1 L (39.0-53.0) % RDW 16.8 H (11.5-15.5) % Plt Count 110 L (150-450) k/uL Lymphocytes # (Manual) 0.31 L (1.0-4.8) k/uL Metamyelocytes # (Man) 0.08 H (0) k/uL Nucleated RBCs 3 H (0-0) /100 WBC Sodium (137-145) mmol/L Chloride (98-107) mmol/L BUN (9-20) mg/dL POC Glucose (mg/dL) 166 H (75-99) mg/dL Osmolality 270 L (280-301) mosm/kg Calcium (8.4-10.2) mg/dL Troponin I (0.000-0.034) ng/mL Total Protein (6.3-8.2) g/dL Albumin (3.5-5.0) g/dL 12/08/18 12/08/18 Range/Units 16:44 21:15 RBC (4.30-5.90) m/uL Hgb (13.0-17.5) gm/dL Hct (39.0-53.0) % RDW (11.5-15.5) % Plt Count (150-450) k/uL Lymphocytes # (Manual) (1.0-4.8) k/uL Metamyelocytes # (Man) (0) k/uL Nucleated RBCs (0-0) /100 WBC Sodium (137-145) mmol/L Chloride (98-107) mmol/L BUN (9-20) mg/dL POC Glucose (mg/dL) 221 H 189 H (75-99) mg/dL Osmolality (280-301) mosm/kg Calcium (8.4-10.2) mg/dL Troponin I (0.000-0.034) ng/mL Total Protein (6.3-8.2) g/dL Albumin (3.5-5.0) g/dL Comments: echocardiogram report reviewed Left hip/femur x-ray report reviewed Chest x-ray: report reviewed Assessment and Plan (1) Fluid overload Narrative/Plan: The patient's echocardiogram shows normal ejection fraction. There is appear to be some left ventricular hypertrophy and he may have diastolic dysfunction. He has received IV fluids during his recent admission. X-ray appears to indicate most likely fluid overload, with physical exam features supporting same The patient is currently on dialysis. Deferred to the admitting service for further management Current Visit: Yes Status: Acute Code(s): E87.70 - FLUID OVERLOAD, UNSPECIFIED SNOMED Code(s): 10883282 (2) Esophageal cancer Narrative/Plan: diagnostic and Therapeutic circumstances as described. The patient has completed palliative radiation, as well as surgery for spinal metastasis. He is to start chemotherapy. Chemotherapy with FOLFOX will start once acute situation has sufficiently resolved Current Visit: Yes Status: Acute Code(s): C15.9 - MALIGNANT NEOPLASM OF ESO PHAGUS, UNSPECIFIED SNOMED Code(s): 759040330 Plan: Defer to the admitting service for management of his other medical problems
[2018-12-09] MEDS: MORPHINE SULFATE ER 30 MG TABLET PO SCH ×3 (02:24→17:32)
[2018-12-09 06:24] LABS: Glucose,Whole Blood 131 mg/dL (75-99)
[2018-12-09] MEDS: IPRATROPIUM-ALBUTEROL 3 ML NEB INHALATION SCH ×4 (09:01→20:11)
[2018-12-09] MEDS: QUEtiapine 50 MG TAB PO SCH ×2 (09:15→22:10)
[2018-12-09] MEDS: TAMSULOSIN 0.4 MG CAP.ER.24H PO SCH ×2 (09:15→22:10)
[2018-12-09] MEDS: ASPIRIN 325 MG TAB PO SCH (09:15)
[2018-12-09] MEDS: metFORMIN 500 MG TAB PO SCH ×2 (09:16→22:10)
[2018-12-09] MEDS: PANTOPRAZOLE 40 MG TABLET PO SCH (09:16)
[2018-12-09] MEDS: METOPROLOL SUCCINATE (ER) 25 MG TAB.ER.24H PO SCH (09:16)
[2018-12-09] MEDS: DOCUSATE 100 MG CAP PO SCH (09:17)
[2018-12-09] MEDS: NYSTATIN 100,000 UNIT/ML SUSP 500,000 UNIT/5 ML CUP PO SCH ×4 (09:17→21:21)
[2018-12-09] MEDS: GABAPENTIN 300 MG CAP PO SCH ×3 (09:17→21:21)
[2018-12-09] MEDS: DEXAMETHASONE 2 MG TAB PO SCH ×3 (09:17→21:21)
[2018-12-09] MEDS: MORPHINE SULFATE 2 MG/ML SYRINGE IVP PRN ×2 (10:09→22:53)
[2018-12-09] MEDS: FUROSEMIDE 10 MG/ML 4 ML VIAL IV SCH ×2 (11:31→22:04)
[2018-12-09 12:01] LABS: Glucose,Whole Blood 151 mg/dL (75-99)
--- NOTE | 2018-12-09 12:01 | NM ---
EXAMINATION TYPE: NM bone scan whole body DATE OF EXAM: 12/09/2018 COMPARISON: NONE HISTORY: 68-year-old male left hip and left knee pain as well as low back pain. Patient with history of fall. Patient also with history of esophageal cancer. Prior L4-L5 or surgery. Technique: Delayed whole-body scanning was performed following the injection of 25.9 mCi Tc 99m MDP. Images acquired 3 hours post injection. FINDINGS: Focal activity along the right anterior upper chest corresponds to the patient's injection port. Scat tered degenerative tracer activity along the posterior elements of the mid thoracic spine. No suspici ous for circulation within the axial or appendicular skeleton identified. IMPRESSION: No scintigraphic evidence for osseous metastatic disease. Some degenerative tracer activity along the posterior elements of the mid thoracic spine.
--- NOTE | 2018-12-09 12:08 | P.PN ---
Subjective Progress Note Date: 12/09/18 This is a 68-year-old gentleman with history of metastatic esophageal cancer, status post chemo and radiation he presented to the hospital with symptoms of shortness of breath that. Patient was seen in consultation by Dr. Ye, admitted with diastolic congestive heart failure. Patient also had some mild abnormality in troponin, likely related to malignancy, not suggestive of acute coronary syndrome. Patient's weight today is down 3 kg, echocardiogram with Doppler study revealed an ejection fraction of 60-65%. Blood pressure running in the 80s systolic, patient is asymptomatic. His lisinopril will be given at noon daily. Labs from today are pending. Objective - Vital Signs Vital signs: Vital Signs Temp 98.1 F 12/09/18 11:20 Pulse 95 12/09/18 11:20 Resp 24 12/09/18 11:20 BP 129/71 12/09/18 11:20 Pulse Ox 95 12/09/18 09:01 Intake & Output 12/08/18 12/09/18 12/09/18 18:59 06:59 18:59 Intake Total 240 126 240 Output Total 600 1350 Balance -360 -1224 240 Weight 87.5 kg 84.5 kg Intake: Oral 240 126 240 Output: Urine 600 1350 Other: # Voids 1 1 - Exam PHYSICAL EXAMINATION: GENERAL: 68-year-old gentleman in no acute distress at time of my examination HEENT: Head is atraumatic, normocephalic. Pupils equal, round. Sclera anicteric. Conjunctiva are clear. Mucous membranes of the mouth are moist. Neck is supple. There is no elevated jugular venous pressure. No carotid bruit is heard. HEART EXAMINATION: Heart S1, S2 normal. No murmur or gallop heard. CHEST EXAMINATION: Lungs are clear to auscultation and precussion. No chest wall tenderness is noted on palpation or with deep breathing. ABDOMEN: Soft, nontender. Bowel sounds are heard. No organomegaly noted. EXTREMITIES: 2+ peripheral pulses with 3+ bilateral peripheral edema and no calf tenderness noted. Significant edema in the left arm. NEUROLOGIC patient is awake, alert and oriented 3 . . - Labs CBC & Chem 7: 12/08/18 05:12 12/08/18 05:12 Labs: Abnormal Lab Results - Last 24 Hours (Table) 12/08/18 12/08/1812/08/19 Range/Units 11:50 16:44 21:15 POC Glucose (mg/dL) 166 H 221 H 189 H (75-99) mg/dL 12/09/18 Range/Units 06:22 POC Glucose (mg/dL) 131 H (75-99) mg/dL Assessment and Plan Plan: Assessment and plan #1 diastolic congestive heart failure acute on chronic #2 abnormality in troponin, not consistent with acute coronary syndrome, likely secondary to malignancy. #3 metastatic esophageal cancer Plan We will continue current dose of IV Lasix, check lytes BUN and creatinine daily. Give the ONDINA inhibitor at noon daily. DNP note has been reviewed, I agree with a documented findings and plan of care. Patient was seen and examined.
[2018-12-09] MEDS: LISINOPRIL 10 MG TAB PO SCH (12:16)
--- NOTE | 2018-12-09 13:46 | P.PN ---
Subjective Progress Note Date: 12/09/18 Principal diagnosis: Diagnosis: #1 status post chemotherapy first infusion and was more [facility]. #2 generalized weakness, volume overload, left lower extremity spasm with pain. #3 x-rays of the left lower extremities and the bone scan to rule out metastasis was negative. #4 decompression of the low back with laminectomy and kyphoplasty , with a adenocarcinoma of the lower esophagus. By endoscopy and biopsy at [facility]. #5 dysphagia secondary to lower esophageal cancer, #6 moderate to severe protein calorie deficiency with the associated edema secondary to hypoproteinemia. #7 hyponatremia with dilutional effect. #8 abnormal troponin 3, cardiology indicating related to the cancer. #9 anemia secondary to chronic disease and cancer. #10 COPD, history of pulmonary fibrosis, lost night he had hemoptysis. Progress note patient seen and evaluated [id number] with of service 12/09 2018. Vital signs stable with temperature 98.1 F oral, his pulse rate 95 per minute nonlabored his of his respiratory rate is 24. Blood pressure 129/71 and he has nasal cannula and he gets inhalation therapy. Patient is diabetic and that he has been on metformin and we'll check his lactic acid with a history of mildly elevated lactic acid in the past. Bone scan was negative for metastasis as the stated no osseous metastatic disease with the some degenerative tracer activity tolerance along the posterior element of the mid thoracic spine., X-ray of the knee and femur no evidence of bone metastases. Cardiology consult on follow-up for the elevated troponin 3 and the don't believe that there is any cardiac event with the elevated troponin and referred her to the cancer metastasis. Patient with history of anemia and he had lost night hemoptysis we will consult Dr. Reid Reed pulmonary, and also will request advice from hematology oncology for starting heparin subcu for DVT prophylaxis. On exam: Patient conscious alert oriented still have the pain in his left femur and left knee and left leg he stated today is 4/10 with the cold medication of narcotic that he receiving for pain. Admitted then for bimalleolar results and with the possibility count from his back with the surgery that he had prior to these event. Patient had distill edema of the dorsum of the feet and the ankle is receiving diuresis however patient has hypoproteinemia and hypoalbuminemia and the protein calorie deficiency associated with it nutritional intake as well as hypermetabolism with the cancer adenocarcinoma of the lower esophagus as well has dysphagia. HEENT negative Neck supple no lymphadenopathy. Chest lung areas bilaterally and he receiving inhalation therapy. I see on the napkin the blood could be from the cough however will consult the pulmonary and critical Dr. Reid Reed. Heart: Regular sinus rhythm, seen by the cardiology indicating diastolic dysfunction and diastolic failure with the underlying volume overload. Abdomen soft positive bowel sounds, we consulted the nutrition for history of dysphagia and increased routine. Extremities he had improvement on the left arm edema but still the edema of the dorsum of the feet and ankle and extension has been present. PT and OT consulted. Assessment and plan: Still he had not well-controlled. Generalized weakness with the presence of rehab Status post with the chemotherapy 1 session Underlying hemoptysis once and will consult pulmonary and critical care. We'll continue the current treatment. We'll ask the hematology oncology service if it is okay and the appropriate for DVT prophylaxis with heparin with the underlying hemoptysis as well as his hemoglobin his low secondary to the cancer. Objective - Vital Signs Vital signs: Vital Signs Temp 98.1 F 12/09/18 11:20 Pulse 95 12/09/18 12:59 Resp 24 12/09/18 12:00 BP 129/71 12/09/18 11:20 Pulse Ox 95 12/09/18 09:01 Intake & Output 12/08/18 12/09/18 12/09/18 18:59 06:59 18:59 Intake Total 240 126 360 Output Total 600 1350 200 Balance -360 -1224 160 Weight 87.5 kg 84.5 kg Intake: Oral 240 126 360 Output: Urine 600 1350 200 Other: # Voids 1 1 200 - Labs CBC & Chem 7: 12/08/18 05:12 12/08/18 05:12 Labs: Abnormal Lab Results - Last 24 Hours (Table) 12/08/18 12/08/18 12/09/18 Range/Units 16:44 21:15 06:22 POC Glucose (mg/dL) 221 H 189 H 131 H (75-99) mg/dL 12/09/18 Range/Units 11:59 POC Glucose (mg/dL) 151 H (75-99) mg/dL
[2018-12-09] MEDS: HEPARIN SODIUM,PORCINE 5,000 UNIT/ML 1 ML VIAL SQ SCH ×2 (14:21→20:25)
[2018-12-09] MEDS: HYDROcodone/APAP 10-325MG 1 EACH TAB PO PRN ×2 (15:14→21:21)
[2018-12-09 20:41] LABS: Glucose,Whole Blood 177 mg/dL (75-99)
[2018-12-09] MEDS: PRAVASTATIN SODIUM 20 MG TAB PO SCH (22:10)
[2018-12-10] MEDS: MORPHINE SULFATE ER 30 MG TABLET PO SCH ×3 (03:36→18:23)
[2018-12-10 05:59] LABS: Glucose,Whole Blood 129 mg/dL (75-99)
[2018-12-10 06:48] LABS: Anisocytosis Slight; Basophils % (A) 0 %; Eosinophils % (A) 1 %; HCT 25.1 % (39.0-53.0); Lymphocytes # (A) 0.2 k/uL (1.0-4.8); Lymphocytes % (A) 3 %; MCH 33.1 pg (25.0-35.0); MCHC 35.6 g/dL (31.0-37.0); Mean Platelet Volume 6.3; Monocytes # (A) 0.1 k/uL (0-1.0); Monocytes % (A) 2 %; Neutrophils # (A) 5.3 k/uL (1.3-7.7); Neutrophils % (A) 93 %; RDW 16.7 % (11.5-15.5); WBC 5.6 k/uL (3.8-10.6)
[2018-12-10 06:51] LABS: HGB 8.9 gm/dL (13.0-17.5)
[2018-12-10 06:54] LABS: ALT 54 U/L (21-72); AST 31 U/L (17-59); African American GFR (CKD) >90 (>60 ml/min/1.73 sqM); Albumin 2.5 g/dL (3.5-5.0); Alkaline Phosphatase 75 U/L (38-126); Anion Gap 4 mmol/L; Blood Urea Nitrogen 34 mg/dL (9-20); Calcium 7.5 mg/dL (8.4-10.2); Carbon Dioxide 29 mmol/L (22-30); Chloride 95 mmol/L (98-107); Glucose 116 mg/dL (74-99); Potassium 4.8 mmol/L (3.5-5.1); Sodium 128 mmol/L (137-145); Total Bilirubin 0.4 mg/dL (0.2-1.3); Total Protein 4.8 g/dL (6.3-8.2)
[2018-12-10 07:10] LABS: Polychromasia Present
[2018-12-10 07:12] LABS: Platelet Count 91 k/uL (150-450)
--- NOTE | 2018-12-10 07:33 | XR ---
EXAMINATION TYPE: XR chest 2V DATE OF EXAM: 12/10/2018 COMPARISON: 12/07/2018 HISTORY: Hemoptysis TECHNIQUE: Frontal and lateral views of the chest are obtained. FINDINGS: There are trace bilateral pleural effusions. Right-sided Mediport remains in an unchanged position. Mild interstitial pulmonary edema is seen. Cardiomediastinal silhouette is mildly enlarged. Pulmonary hyperinflation of underlying COPD. Nodular densities now seen within the right lateral yasmin g. Prominence over the left first rib is inferior margin. Moderate degenerative changes of the spine . Partial visualization of vascular abdominal graft. Multiple small nodules are now evident within th e right midlung and left midlung. IMPRESSION: 1. Numerous pulmonary nodules versus pulmonary vessels en face. CT thorax assess for nodule is not kn own. 2. Persistent and stable fluid overload with mild interstitial edema and trace pleural effusions.
[2018-12-10] MEDS: IPRATROPIUM-ALBUTEROL 3 ML NEB INHALATION SCH ×4 (08:08→20:44)
[2018-12-10] MEDS: HYDROcodone/APAP 10-325MG 1 EACH TAB PO PRN ×2 (08:17→21:43)
[2018-12-10] MEDS: HEPARIN SODIUM,PORCINE 5,000 UNIT/ML 1 ML VIAL SQ SCH ×2 (09:20→20:13)
[2018-12-10] MEDS: metFORMIN 500 MG TAB PO SCH ×2 (09:37→20:14)
[2018-12-10] MEDS: DEXAMETHASONE 2 MG TAB PO SCH ×3 (09:37→20:14)
[2018-12-10] MEDS: TAMSULOSIN 0.4 MG CAP.ER.24H PO SCH ×2 (09:37→20:14)
[2018-12-10] MEDS: PANTOPRAZOLE 40 MG TABLET PO SCH (09:37)
[2018-12-10] MEDS: ASPIRIN 325 MG TAB PO SCH (09:37)
[2018-12-10] MEDS: GABAPENTIN 300 MG CAP PO SCH ×3 (09:37→20:14)
[2018-12-10] MEDS: DOCUSATE 100 MG CAP PO SCH (09:37)
[2018-12-10] MEDS: NYSTATIN 100,000 UNIT/ML SUSP 500,000 UNIT/5 ML CUP PO SCH ×4 (09:37→20:14)
[2018-12-10] MEDS: METOPROLOL SUCCINATE (ER) 25 MG TAB.ER.24H PO SCH (09:38)
[2018-12-10] MEDS: QUEtiapine 50 MG TAB PO SCH ×2 (09:46→20:14)
[2018-12-10] MEDS: FUROSEMIDE 10 MG/ML 4 ML VIAL IV SCH (10:17)
--- NOTE | 2018-12-10 10:26 | P.PN ---
Subjective Progress Note Date: 12/10/18 This is a 68-year-old gentleman with history of metastatic esophageal cancer, status post chemo and radiation he presented to the hospital with symptoms of shortness of breath that. Patient was seen in consultation by Dr. Ye, admitted with diastolic congestive heart failure. Patient also had some mild abnormality in troponin, likely related to malignancy, not suggestive of acute coronary syndrome. Patient's weight today is down 3 kg, echocardiogram with Doppler study revealed an ejection fraction of 60-65%. Blood pressure running in the 80s systolic, patient is asymptomatic. His lisinopril will be given at noon daily. Labs from today are pending. 12/10/2018 Patient was seen and examined this morning, feeling much better overall. The lungs are clear. Weight is down today. Blood cell count 5.6, hemoglobin 8.9, platelet count 91. Sodium 128, potassium 4.8, BUN 34 and creatinine 0.6. Objective - Vital Signs Vital signs: Vital Signs Temp 98.1 F 12/10/18 07:51 Pulse 96 12/10/18 08:22 Resp 16 12/10/18 08:00 BP 132/72 12/10/18 07:51 Pulse Ox 99 12/10/18 08:08 Intake & Output 12/09/18 12/10/18 12/10/18 18:59 06:59 18:59 Intake Total 720 240 Output Total 1425 700 Balance -705 -700 240 Weight 84.5 kg 77.7 kg Intake: Oral 720 240 Output: Urine 1425 700 Other: Voiding Method Urinal Urinal # Voids 5 2 - Exam PHYSICAL EXAMINATION: GENERAL: 68-year-old gentleman in no acute distress at time of my examination HEENT: Head is atraumatic, normocephalic. Pupils equal, round. Sclera anicteric. Conjunctiva are clear. Mucous membranes of the mouth are moist. Neck is supple. There is no elevated jugular venous pressure. No carotid bruit is heard. HEART EXAMINATION: Heart S1, S2 normal. No murmur or gallop heard. CHEST EXAMINATION: Lungs are clear to auscultation and precussion. No chest wall tenderness is noted on palpation or with deep breathing. ABDOMEN: Soft, nontender. Bowel sounds are heard. No organomegaly noted. EXTREMITIES: 2+ peripheral pulses with 3+ bilateral peripheral edema and no calf tenderness noted. Significant edema in the left arm. NEUROLOGIC patient is awake, alert and oriented 3 . . - Labs CBC & Chem 7: 12/10/18 05:47 12/10/18 05:47 Labs: Abnormal Lab Results - Last 24 Hours (Table) 12/09/18 12/09/18 12/10/18 Range/Units 11:59 20:39 05:47 RBC 2.70 L (4.30-5.90) m/uL Hgb 8.9 L D (13.0-17.5) gm/dL Hct 25.1 L (39.0-53.0) % RDW 16.7 H (11.5-15.5) % Plt Count 91 L (150-450) k/uL Lymphocytes # 0.2 L (1.0-4.8) k/uL Sodium (137-145) mmol/L Chloride (98-107) mmol/L BUN (9-20) mg/dL Glucose (74-99) mg/dL POC Glucose (mg/dL) 151 H 177 H (75-99) mg/dL Calcium (8.4-10.2) mg/dL Total Protein (6.3-8.2) g/dL Albumin (3.5-5.0) g/dL 12/10/18 12/10/18 Range/Units 05:47 05:57 RBC (4.30-5.90) m/uL Hgb (13.0-17.5) gm/dL Hct (39.0-53.0) % RDW (11.5-15.5) % Plt Count (150-450) k/uL Lymphocytes # (1.0-4.8) k/uL Sodium 128 L (137-145) mmol/L Chloride 95 L (98-107) mmol/L BUN 34 H (9-20) mg/dL Glucose 116 H (74-99) mg/dL POC Glucose (mg/dL) 129 H (75-99) mg/dL Calcium 7.5 L (8.4-10.2) mg/dL Total Protein 4.8 L (6.3-8.2) g/dL Albumin 2.5 L (3.5-5.0) g/dL Assessment and Plan Plan: Assessment and plan #1 diastolic congestive heart failure acute on chronic #2 abnormality in troponin, not consistent with acute coronary syndrome, likely secondary to malignancy. #3 metastatic esophageal cancer Plan Blood pressure is much better this morning, 130/70, heart rate in the 90s. We'll discontinue the IV Lasix today and start the patient on oral diuretics. Decrease aspirin to 81 mg daily. Discharged home once cleared by primary. Follow-up in the office post discharge. DNP note has been reviewed, I agree with a documented findings and plan of care. Patient was seen and examined.
[2018-12-10] MEDS: LISINOPRIL 10 MG TAB PO SCH (11:41)
[2018-12-10 12:05] LABS: Glucose,Whole Blood 127 mg/dL (75-99)
--- NOTE | 2018-12-10 13:16 | P.PN ---
Subjective Progress Note Date: 12/10/18 Principal diagnosis: Diagnosis: #1 status post chemotherapy first infusion and was more [facility]. #2 generalized weakness, volume overload, left lower extremity spasm with pain. #3 x-rays of the left lower extremities and the bone scan to rule out metastasis was negative. #4 decompression of the low back with laminectomy and kyphoplasty , with a adenocarcinoma of the lower esophagus. By endoscopy and biopsy at [facility]. #5 dysphagia secondary to lower esophageal cancer, #6 moderate to severe protein calorie deficiency with the associated edema secondary to hypoproteinemia. #7 hyponatremia with dilutional effect. #8 abnormal troponin 3, cardiology indicating related to the cancer. #9 anemia secondary to chronic disease and cancer. #10 COPD, history of pulmonary fibrosis, lost night he had hemoptysis. Dictation on progress note date of service 12/10/2018. Patient seen and evaluated [id number] discussed with him the current treatment. I did the communication to the nursing staff and also for the oncology, for appropriateness of use heparin subcu every 12 hour or every 8 hour period and wasn't really done, and I did request today again from nursing staff Steve OSULLIVAN to communicate with the oncology the did not see him so far again and we don't have any for further acknowledging for the future treatment. Patient had recurrent hemoptysis, we consulted Dr. Reid Reed today for evaluation. No evidence of bone metastasis by bone scan or x-rays. Patient received the first chemotherapy infusion in [facility], subsequently sent to the emergency room because of his extreme weakness and fatigue with edema of the left arm and lower extremities. Patient has severe hypoproteinemia and hypoalbuminemia, we consulted the nutrition. Cardiology assessment: Diastolic congestive heart failure acute on top of chronic. Abnormal troponin not consistent with acute coronary syndrome. Luckily secondary to malignancy. #3 metastatic esophageal cancer. The plan of cardiology to discontinue IV Lasix and start patient on oral diuretics and decrease the aspirin to 81 mg. And discharge home once patient cleared by primary care and follow-up office. And that was dictated by Cierra Prescott, Chest x-ray was done in December 10 indicating numerous pulmonary nodule versus pulmonary vessel in face of CT of the thorax yes status of the nodules. And there is resistance stable Volney fluid volume and interstitial edema and tr acer. Patient had hemoptysis twice and the consultation with Dr. Reid Reed pulmonary was requested today who did see him before at daycare and [facility] admission. His examination his temperature 90.8 F exemplary his heart rate 95 per minute regular sinus his pulse rate was 74 and respiratory rate 18 and his blood pressure 110/55 with a mean 73. His pulse ox 100% and he is on 2 L nasal cannu la. On examination today he had still persistent edema of the lower extremities and with the minimal improvement he had the lower leg edema as well 2+ and he is intensified his nutritional status will be adding supplement. To improve his hypoproteinemia and nutritional deficiency which is associated also with dysphagia and the increased metabolic rate. His Patient controlled at this time and the wound in his left leg pain is tolerable at this time as he was exacerbated. HEENT was negative. Neck was supple and the chest was created with the increased anteroposterior diameter with the suspicious of multiple nodular liver metastasis however we don't know the opinion of the oncology in the patient review. The Heart he as mentioned above with the cardiology with the currently regular sinus rhythm. In Abdomen is soft positive bowel sounds he has some distention with eructation and gas. The extremities as mentioned he has positive edema bilateral. And that is still the question for the oncology for regarding the DVT prophylaxis they started oriented that interfere with the underlying treatment and and we requested the recommendation from the oncology and hematology oncology. Laboratory white count 5.6 his hemoglobin dropped to 8.9 and hematocrit 16 point correction hematocrit is 25.1 and and and his sodium 128 with hypo-natremia and with the probability of secondary to hypoproteinemia. His renal function still satisfactory with more than 90 His calcium 7.5 and we will obtain serum calcium and ionized calcium as well as vitamin D level and that his protein is 4.8 and albumin 2.5 with the underlying severe protein calorie deficiency with the association of edema of the lower extremities. Assessment: Plan: Will obtain consultation with Dr. Reid Reed with the possibility of multiple nodular deposits and lower lung as well as a hemoptysis. #2 obtain vitamin D level #3 obtain ionized and serum calcium. Hyponatremia probably associated with diuresis with the edema of the lower extremities and today cardiology did change his IV to by mouth. We'll check BMP tomorrow. Objective - Vital Signs Vital signs: Vital Signs Temp 98 F 12/10/18 11:51 Pulse 74 12/10/18 12:00 Resp 18 12/10/18 12:00 BP 110/55 12/10/18 11:51 Pulse Ox 100 12/10/18 11:51 Intake & Output 12/09/18 12/10/18 12/10/18 18:59 06:59 18:59 Intake Total 720 240 Output Total 1428 700 700 Balance -176 -700 -460 Weight 84.5 kg 77.7 kg Intake: Oral 720 240 Output: Urine 1420 700 700 Other: Voiding Method Urinal Urinal # Voids 5 2 - Labs CBC & Chem 7: 12/10/18 05:47 12/10/18 05:47 Labs: Abnormal Lab Results - Last 24 Hours (Table) 12/09/18 12/10/18 12/10/18 Range/Units 20:39 05:47 05:47 RBC 2.70 L (4.30-5.90) m/uL Hgb 8.9 L D (13.0-17.5) gm/dL Hct 25.1 L (39.0-53.0) % RDW 16.7 H (11.5-15.5) % Plt Count 91 L (150-450) k/uL Lymphocytes # 0.2 L (1.0-4.8) k/uL Sodium 128 L (137-145) mmol/L Chloride 95 L (98-107) mmol/L BUN 34 H (9-20) mg/dL Glucose 116 H (74-99) mg/dL POC Glucose (mg/dL) 177 H (75-99) mg/dL Calcium 7.5 L (8.4-10.2) mg/dL Total Protein 4.8 L (6.3-8.2) g/dL Albumin 2.5 L (3.5-5.0) g/dL 12/10/18 12/10/18 Range/Units 05:57 11:44 RBC (4.30-5.90) m/uL Hgb (13.0-17.5) gm/dL Hct (39.0-53.0) % RDW (11.5-15.5) % Plt Count (150-450) k/uL Lymphocytes # (1.0-4.8) k/uL Sodium (137-145) mmol/L Chloride (98-107) mmol/L BUN (9-20) mg/dL Glucose (74-99) mg/dL POC Glucose (mg/dL) 129 H 127 H (75-99) mg/dL Calcium (8.4-10.2) mg/dL Total Protein (6.3-8.2) g/dL Albumin (3.5-5.0) g/dL
[2018-12-10 14:24] LABS: Ionized Calcium 4.1 mg/dL (4.5-5.3)
--- NOTE | 2018-12-10 15:33 | P.CNPUL ---
History of Present Illness Consult date: 12/10/18 Reason for consult: dyspnea, hypoxemia Chief complaint: Shortness of breath History of present illness: This is a 68-year-old male with the prior medical history of stage IV esophageal cancer presenting to the emergency department shortness of breath. Patient has been in and out of the hospital recently. Patient has had dyspnea over the past couple of weeks, worse the past few days. Patient also noted progressive generalized weakness was in fact admitted at [facility] with congestive heart failure patient just has been initiated on chemotherapy I believe first cycle was terminated due to health status however patient was attempted to undergo chemotherapy again and postponed due to generalized progressive weakness and breathing difficulties, bone scan has been unremarkable chest x-ray revealed bilateral small nodular densities multiple possibility of metastatic disease cannot be excluded, echocardiogram revealed ejection fraction of 60%, no evidence of pulmonary hypertension Review of Systems All systems: negative Past Medical History Past Medical History: Cancer, CVA/TIA, Diabetes Mellitus, Hypertension, Osteoarthritis (OA), Prostate Disorder, Renal Disease Additional Past Medical History / Comment(s): TIA 2012-no residual effects, hx. aortic aneurysm with stent placement, decreased kidney function, small hiatal hernia. Esophageal cancer, spinal cancer; laminectomy History of Any Multi-Drug Resistant Organisms: None Reported Past Surgical History: Appendectomy Additional Past Surgical History / Comment(s): APPY (4 YRS OLD), COLONOSCOPY, abd. aortic stent 2014 Past Anesthesia/Blood Transfusion Reactions: No Reported Reaction Past Psychological History: Schizoaffective Disorder Additional Psychological History / Comment(s): controlled by medication Smoking Status: Former smoker Past Alcohol Use History: None Reported Additional Past Alcohol Use History / Comment(s): down to 10 cigs/day from 1ppd, quit 10/01/18started in high school, Past Drug Use History: Marijuana Additional Drug Use History / Comment(s): MARIJUANA-occasional use - Past Family History Father Family Medical History: Cancer Additional Family Medical History / Comment(s): COLO-RECTAL CA. GRANDFATHER- COLO-RECTAL CANCER ALSO Medications and Allergies Home Medications Medication Instructions Recorded Confirmed Type Aspirin 81 mg PO DAILY 08/11/18 12/07/18 History QUEtiapine [SEROquel] 50 mg PO BID 08/11/18 12/07/18 History Tamsulosin [Flomax] 0.4 mg PO BID 08/11/18 12/07/18 History hydrALAZINE HCL [Apresoline] 50 mg PO TID 08/11/18 12/07/18 History metFORMIN HCL [Glucophage] 500 mg PO BID 08/11/18 12/07/18 History Diltiazem HCl 30 mg PO Q8HR 11/25/18 12/07/18 History Docusate [Colace] 100 mg PO DAILY 11/25/18 12/07/18 History Gabapentin [Neurontin] 300 mg PO TID 11/25/18 12/07/18 History HYDROcodone/APAP 10-325MG [[place] 1 tab PO Q6HR PRN 11/25/18 12/07/18 History 10-325] Morphine Sulfate ER [Ms Contin] 30 mg PO Q8H 11/25/18 12/07/18 History Pantoprazole Sodium [Protonix] 40 mg PO DAILY 11/25/18 12/07/18 History Pravastatin Sodium [Pravachol] 20 mg PO HS 11/25/18 12/07/18 History Dexamethasone [Hexadrol] 2 mg PO TID 12/07/18 12/07/18 History Allergies Allergy/AdvReac Type Severity Reaction Status Date / Time No Known Allergies Allergy Verified 12/07/18 15:48 Physical Exam Vitals: Vital Signs Temp Pulse Pulse Resp BP Pulse Ox 12/10/18 12:00 74 18 12/10/18 11:53 95 12/10/18 11:51 98 F 74 18 110/55 100 12/10/18 11:42 93 12/10/18 08:22 96 12/10/18 08:08 95 99 12/10/18 08:00 91 16 12/10/18 07:58 91 16 12/10/18 07:51 98.1 F 91 16 132/72 97 12/10/18 04:00 98.1 F 94 18 105/53 97 12/09/18 23:54 94 18 12/09/18 23:51 97.7 F 94 18 98/56 96 12/09/18 21:50 101 H 98/50 12/09/18 20:22 90 16 12/09/18 20:11 92 16 12/09/18 20:00 98.0 F 92 16 107/60 99 12/09/18 15:52 94 16 12/09/18 15:42 93 16 96 10/31/19 15:32 93 18 Intake and Output 12/10/18 12/10/18 12/10/18 06:59 14:59 22:59 Intake Total 240 Output Total 700 820 Balance -700 -580 Intake: Oral 240 Output: Urine 700 820 Other: Voiding Method Urinal Urinal # Voids 2 Weight 77.7 kg - Constitutional General appearance: average body habitus, cooperative, disheveled, mild distress - EENT Eyes: EOMI, PERRLA, poor dentition ENT: normal oropharynx Ears: bilateral: normal - Neck Neck: normal ROM Carotids: bilateral: upstroke normal Thyroid: bilateral: normal size - Respiratory Respiratory: bilateral: diminished, rales (Fine bilateral), negative: CTA, rhonchi, wheezing, prolonged expiration, prolonged inspiration - Cardiovascular Rhythm: regular Heart sounds: normal: S1, S2 - Gastrointestinal General gastrointestinal: distended - Integumentary Integumentary: normal turgor - Neurologic Neurologic: CNII-XII intact - Musculoskeletal Musculoskeletal: gait normal, generalized weakness, strength equal bilaterally - Psychiatric Psychiatric: A&O x's 3, appropriate affect, intact judgment & insight Results - Laboratory Findings CBC and BMP: 12/10/18 05:47 12/10/18 05:47 PT/INR, D-dimer PT 9.6 sec (9.0-12.0) 12/07/18 16:50 INR 0.9 (<1.2) 12/07/18 16:50 Abnormal lab findings: Abnormal Labs 12/07/18 12/07/18 12/07/18 16:50 16:50 16:50 RBC 3.25 L Hgb 10.4 L Hct 30.1 L RDW 16.9 H Plt Count 106 L Neutrophils # 9.1 H Lymphocytes # 0.2 L Lymphocytes # (Manual) Metamyelocytes # (Man) Nucleated RBCs APTT 20.7 L Sodium 125 L Chloride 96 L BUN 25 H Glucose 137 H POC Glucose (mg/dL) Osmolality Calcium 8.0 L Ionized Calcium Triny Troponin I Total Protein 5.1 L Albumin 2.7 L 12/07/18 12/07/18 12/08/18 16:50 23:30 05:12 RBC Hgb Hct RDW Plt Count Neutrophils # Lymphocytes # Lymphocytes # (Manual) Metamyelocytes # (Man) Nucleated RBCs APTT Sodium 128 L Chloride 96 L BUN 27 H Glucose POC Glucose (mg/dL) Osmolality Calcium 8.1 L Ionized Calcium Triny Troponin I 0.054 H* 0.062 H* Total Protein 5.1 L Albumin 2.7 L 12/08/18 12/08/18 12/08/18 05:12 05:12 05:12 RBC 3.33 L Hgb 10.8 L Hct 31.1 L RDW 16.8 H Plt Count 110 L Neutrophils # Lymphocytes # Lymphocytes # (Manual) 0.31 L Metamyelocytes # (Man) 0.08 H Nucleated RBCs 3 H APTT Sodium Chloride BUN Glucose POC Glucose (mg/dL) Osmolality 270 L Calcium Ionized Calcium Triny Troponin I 0.073 H* Total Protein Albumin 12/08/18 12/08/18 12/08/18 11:50 16:44 21:15 RBC Hgb Hct RDW Plt Count Neutrophils # Lymphocytes # Lymphocytes # (Manual) Metamyelocytes # (Man) Nucleated RBCs APTT Sodium Chloride BUN Glucose POC Glucose (mg/dL) 166 H 221 H 189 H Osmolality Calcium Ionized Calcium Triny Troponin I Total Protein Albumin 12/09/18 12/09/18 12/09/18 06:22 11:59 20:39 RBC Hgb Hct RDW Plt Count Neutrophils # Lymphocytes # Lymphocytes # (Manual) Metamyelocytes # (Man) Nucleated RBCs APTT Sodium Chloride BUN Glucose POC Glucose (mg/dL) 131 H 151 H 177 H Osmolality Calcium Ionized Calcium Triny Troponin I Total Protein Albumin 12/10/18 12/10/18 12/10/18 05:47 05:47 05:57 RBC 2.70 L Hgb 8.9 L D Hct 25.1 L RDW 16.7 H Plt Count 91 L Neutrophils # Lymphocytes # 0.2 L Lymphocytes # (Manual) Metamyelocytes # (Man) Nucleated RBCs APTT Sodium 128 L Chloride 95 L BUN 34 H Glucose 116 H POC Glucose (mg/dL) 129 H Osmolality Calcium 7.5 L Ionized Calcium Triny Troponin I Total Protein 4.8 L Albumin 2.5 L 12/10/18 12/10/18 11:44 13:48 RBC Hgb Hct RDW Plt Count Neutrophils # Lymphocytes # Lymphocytes # (Manual) Metamyelocytes # (Man) Nucleated RBCs APTT Sodium Chloride BUN Glucose POC Glucose (mg/dL) 127 H Osmolality Calcium Ionized Calcium Triny 4.1 L Troponin I Total Protein Albumin - Diagnostic Findings Chest x-ray: report reviewed, image reviewed (Finding as noted above) Assessment and Plan Assessment: Multiple bilateral pulmonary nodules suggest present of metastatic disease Shortness of breath due to multifactorial origin Small left pleural effusion Esophageal cancer Acute on chronic diastolic heart failure Generalized weakness and medical debility Severe COPD emphysema Plan: Continue gentle diuresis Bronchodilators Hold on IV steroids Computed tomography scan of the chest without any contrast for lung nodules Further recommendations pending plan of care as per clinical response of patient Time with Patient: Greater than 30
--- NOTE | 2018-12-10 16:25 | CT ---
EXAMINATION TYPE: CT chest wo con DATE OF EXAM: 12/10/2018 COMPARISON: None HISTORY: LUNG NODULES. SOB CT DLP: 481.7 mGycm, Automated exposure control for dose reduction was used. CONTRAST: Performed injected with 0 mL of Isovue 300. TECHNIQUE: Axial images were obtained at 5 mm thick sections. Reconstructed images are reviewed on [employer] computer in the coronal plane. FINDINGS: Portion of the thyroid visualized is normal. There is a 0.3 cm nodule within the periphery of the right upper lobe. Series 204 image 9. This is fa irly typical of numerous bilateral nodules present scattered throughout the lungs. There is a 0.9 cm focal area of increased density with irregular margins in the anterior right upper lobe. Series 204 i mage 19. There is a focal area of increased density within the left midlung measuring 0.8 cm. Series 204 image 29. There is an irregular density measuring 0.9 cm in the right middle lobe. Series 204 eb ge 33. There is an oval density near the major fissure measuring 0.8 cm. Series 204 image 33. Small b ilateral pleural effusions are present. There is a 1.3 cm pretracheal lymph node and 1.0 cm periaortic lymph node is present. Multiple enlar ged calcified lymph nodes are present, example image subcarinal lymph node measuring 1.4 cm. Moderate-sized hiatal hernia is present. Ascending aorta diameter at the level of the main pulmonary artery is 3.9 cm. The main pulmonary art tal diameter at the bifurcation is 2.[address] sections are obtained through the upper abdomen. Right adrenal gland is thickened at 2.0 c m. Left adrenal gland is thickened at approximately 1.8 cm. IMPRESSIONS: 1. Extensive calcified lymphadenopathy within the mediastinum as well as multiple punctate calcified lung nodules can be related to prior granulomatous disease. 2. There are some thickened nodules within the bilateral lung lopez and enlarged mediastinal lymph n odes could be related to a neoplastic process. Additional workup with PET CT is recommended. 3. Diffuse mild thickening through the bilateral adrenal glands. 4. Small bilateral pleural effusions.
[2018-12-10] MEDS: MORPHINE SULFATE 2 MG/ML SYRINGE IVP PRN (16:41)
[2018-12-10 16:54] LABS: Glucose,Whole Blood 200 mg/dL (75-99)
[2018-12-10 19:10] LABS: % Iron Saturation 37.93 (15.00-50.00)
[2018-12-10 19:54] LABS: Ferritin 1727.3 ng/mL (22.0-322.0)
[2018-12-10] MEDS: PRAVASTATIN SODIUM 20 MG TAB PO SCH (20:14)
[2018-12-10 20:49] LABS: Glucose,Whole Blood 189 mg/dL (75-99)
[2018-12-11 06:21] LABS: Glucose,Whole Blood 167 mg/dL (75-99)
[2018-12-11 06:35] LABS: Anisocytosis Slight; Basophils % (A) 0 %; Eosinophils % (A) 0 %; HCT 25.6 % (39.0-53.0); Lymphocytes # (A) 0.2 k/uL (1.0-4.8); Lymphocytes % (A) 4 %; MCH 32.9 pg (25.0-35.0); MCHC 35.2 g/dL (31.0-37.0); MCV 93.6 fL (80.0-100.0); Mean Platelet Volume 6.9; Monocytes # (A) 0.1 k/uL (0-1.0); Monocytes % (A) 2 %; Neutrophils # (A) 5.2 k/uL (1.3-7.7); Neutrophils % (A) 94 %; Platelet Count 102 k/uL (150-450); RBC 2.74 m/uL (4.30-5.90); RDW 16.5 % (11.5-15.5); WBC 5.5 k/uL (3.8-10.6)
[2018-12-11 06:45] LABS: African American GFR (CKD) >90 (>60 ml/min/1.73 sqM); Anion Gap 6 mmol/L; Blood Urea Nitrogen 32 mg/dL (9-20); Calcium 7.5 mg/dL (8.4-10.2); Carbon Dioxide 29 mmol/L (22-30); Chloride 92 mmol/L (98-107); Glucose 152 mg/dL (74-99); Potassium 4.9 mmol/L (3.5-5.1); Sodium 127 mmol/L (137-145)
[2018-12-11] MEDS: MORPHINE SULFATE ER 30 MG TABLET PO SCH ×3 (07:38→17:49)
[2018-12-11] MEDS ORDERED: FUROSEMIDE 40 MG TAB PO SCH (09:00)
[2018-12-11] MEDS: HEPARIN SODIUM,PORCINE 5,000 UNIT/ML 1 ML VIAL SQ SCH ×2 (09:11→20:42)
[2018-12-11] MEDS: NYSTATIN 100,000 UNIT/ML SUSP 500,000 UNIT/5 ML CUP PO SCH ×4 (09:12→20:42)
[2018-12-11] MEDS: ASPIRIN 81 MG PO SCH (09:13)
[2018-12-11] MEDS: PANTOPRAZOLE 40 MG TABLET PO SCH (09:13)
[2018-12-11] MEDS: TAMSULOSIN 0.4 MG CAP.ER.24H PO SCH ×2 (09:13→20:42)
[2018-12-11] MEDS: METOPROLOL SUCCINATE (ER) 25 MG TAB.ER.24H PO SCH (09:13)
[2018-12-11] MEDS: QUEtiapine 50 MG TAB PO SCH ×2 (09:13→20:42)
[2018-12-11] MEDS: GABAPENTIN 300 MG CAP PO SCH ×3 (09:13→20:42)
[2018-12-11] MEDS: DOCUSATE 100 MG CAP PO SCH (09:13)
[2018-12-11] MEDS: metFORMIN 500 MG TAB PO SCH ×2 (09:13→20:42)
[2018-12-11] MEDS: DEXAMETHASONE 2 MG TAB PO SCH ×3 (09:13→20:42)
[2018-12-11] MEDS: IPRATROPIUM-ALBUTEROL 3 ML NEB INHALATION SCH ×4 (09:13→20:17)
[2018-12-11 11:53] LABS: Glucose,Whole Blood 122 mg/dL (75-99)
[2018-12-11] MEDS: LISINOPRIL 2.5 MG TAB PO SCH (12:55)
[2018-12-11] MEDS: LISINOPRIL 10 MG TAB PO SCH (13:07)
[2018-12-11] MEDS ORDERED: SODIUM CHLORIDE 0.9% 1,000 ML IV SCH (14:00)
[2018-12-11] MEDS ORDERED: CALCIUM CARBONATE 500 MG CHEWABLE PO PRN (14:00)
--- NOTE | 2018-12-11 14:46 | P.PN ---
Subjective Progress Note Date: 12/11/18 Principal diagnosis: Diagnosis: #1 status post chemotherapy first infusion and was more [facility]. #2 generalized weakness, volume overload, left lower extremity spasm with pain. #3 x-rays of the left lower extremities and the bone scan to rule out metastasis was negative. #4 decompression of the low back with laminectomy and kyphoplasty , with a adenocarcinoma of the lower esophagus. By endoscopy and biopsy at [facility]. #5 dysphagia secondary to lower esophageal cancer, #6 moderate to severe protein calorie deficiency with the associated edema secondary to hypoproteinemia. #7 hyponatremia with dilutional effect. #8 abnormal troponin 3, cardiology indicating related to the cancer. #9 anemia secondary to chronic disease and cancer. #10 COPD, history of pulmonary fibrosis, lost night he had hemoptysis. Progress note date of service 12/11/2018. Patient seen and evaluated [id number] and discussed with him the plan. Patient seen by pulmonary Dr. Reid Reed and critical care. His impression multiple bilateral pulmonary nodules suggestive of presence of metastatic disease. Shortness of breath multifactorial, small left pleural effusion, oropharyngeal cancer, acute on top of chronic diastolic heart failure, generalized weakness and the medical debility, severe COPD with emphysema, Pulmonary recommendation and plan bronchodilators, hold IV steroid, CT of the chest without contrast for the pulmonary nodule, for further recommendation depending on the clinical response. His patient's vital signs today temperature 98.4 F oral heart rate 89/m regular nonlabored respiratory rate 18. And his blood pressure dropped at [facility] to 99/54 and 97/57 and seen by cardiology Dr. JAMESON Dunbar who advised with the IV normal saline for a short time and the as well as decreasing lisinopril to 2.5. Discussed with the patient on admission his CODE STATUS as well and he elected no cleared and the was in association of his was present in the discussion and the nursing staff. We discussed that today in detail the disposition and the have the ability to go home or to be in other and his situation is the probability of his could not take care of him and at the same time he wants to continue the chemotherapy. We did not have any improvement from oncology in regard of the planning for the patient and also we requested the opinion as well as advice in regards of the continuation of the DVT prophylaxis in the face of cancer, anemia, thrombocytopenia. And the we don't have no response so far. Unfortunately the patient arrived to the ER the oncology on-call in the current [facility] was is not a member of the team in the current community and his original oncologist is Dr. marrero we will be consulting him as the no response from the oncology group regarding the plan or the floor for treatment and his admission was posterior chemotherapy in the [facility] and subsequently send the from that center to the ER at [facility] and where he was admitted to the hospital. Since event we don't have any input for what the current problem, patient also has anemia and we did laboratory tests as of today 12/11/2018 WBC 5.5 hemoglobin of 9 and hematocrit 25.6 and RBCs 2.74 his platelet count 102. Patient on admission his troponin was elevated and the however seen by the cardiology who indicating that could be from the cancer no relation to his heart. His pro-BMP was also elevated and the with the normal range at 901,008 0. . His on nutritional support with the underlying hypoproteinemia hypoalbuminemia with the moderate protein calorie deficiency. Patient diabetic covered with insulin to scale as well as he is on metformin which should lactic acid was normal. Renal function stable with the estimated glomerular filtration rate for non- 87 and we checked as well his blood sugar which is fluctuating as well as his liver enzyme within normal limit. Patient had a hyper [place] anemia and found that also that has anemia and found that the higher 88 TIBC 232 saturation 37.93 and serum ferritin 1727.3, vitamin D was 15.4 with the underlying vitamin D deficiency. With the underlying underlying hypocalcemia and the we'll recheck the has ionized calcium is 4.1 and a total calcium 7.5. With the hypocalcemia hold supplementation for vitamin D as well as calcium was ordered. His sodium is still low 127 and the with the edema has been significantly improved and the question of intravascular dehydration considered and Dr. JAMESON Dunbar will be starting the IV for 6 hour period for replenishing intravascular. On exam patient is conscious alert oriented and he is sedated and he has that pain controlled and this time but he is lethargic. HEENT ENT was negative and neck was supple no JVD no thyromegaly no lymphadenopathy trachea midline. The chest was improving and radiation and seen by the pulmonary. The The heart was regular sinus rhythm. With the underlying hypo-tension. The abdomen is soft positive bowel sounds no organ enlargement. And the Extremities marketed improvement in the edema however still still nutritional deficiency and a hyper proteinemia. And expected to take more time. Discussion and the assessment. I did discuss with the patient today the disposition and the patient and his current situation of his cancer and the treatment for cancer which he stated that he wants to continue however the thyroid is facilitated home was difficult versus custodial and the the consult to the product planner for helping the patient with the underlying cancer of the esophagus with the appears to be metastasis metastasis as well as the possibility of the pulmonary pulmonary was indicating that questionable also pulmonary nodule as well. We have hypocalcemia hypo-vitamin D and the diabetes mellitus currently controlled with the insulin hypertension is controlled and now is hypotensive and we will give him some IV fluid. The oncology on-call did the agree with the subcu heparin every 12 hours however we don't know the plan for the patient and we are planning for discharge however we don't have any planning for the oncology and we will obtain the discharge planning as well with the discharge planning nurse and the social media sr strategy manager. Unfortunately they are not available on the weekends and that probably may have to wait until Thursday. We will start vitamin D 50,000 international unit vitamin D 2 once a week and had 1 capsule today. And also will see him carbonate 500 mg 3 times a day. And we will check his sodium and electrolytes tomorrow. Patient had no iron deficiency and that he is on anemia of chronic disease and cancer we will like to see what his opinion of the oncology and that anemia as well. Objective - Vital Signs Vital signs: Vital Signs Temp 98.4 F 12/11/18 08:45 Pulse 72 12/11/18 13:12 Resp 18 12/11/18 08:45 BP 109/64 12/11/18 08:45 Pulse Ox 96 12/11/18 08:45 Intake & Output 12/10/18 12/11/18 12/11/18 18:59 06:59 18:59 Intake Total 240 120 Output Total 1570 600 600 Balance -1330 -480 -600 Weight 78.3 kg Intake: Oral 240 120 Output: Urine 1570 600 600 Other: Voiding Method Urinal Urinal - Labs CBC & Chem 7: 12/11/18 05:57 12/11/18 05:57 Labs: Abnormal Lab Results - Last 24 Hours (Table) 12/10/18 12/10/18 12/10/18 Range/Units 13:48 16:52 20:47 RBC (4.30-5.90) m/uL Hgb (13.0-17.5) gm/dL Hct (39.0-53.0) % RDW (11.5-15.5) % Plt Count (150-450) k/uL Lymphocytes # (1.0-4.8) k/uL Sodium (137-145) mmol/L Chloride (98-107) mmol/L BUN (9-20) mg/dL Glucose (74-99) mg/dL POC Glucose (mg/dL) 200 H 189 H (75-99) mg/dL Calcium (8.4-10.2) mg/dL Ionized Calcium Triny 4.1 L (4.5-5.3) mg/dL Ferritin 1727.3 H (22.0-322.0) ng/mL Vitamin D 25-Hydroxy 15.4 L (30.0-100.0) ng/mL 12/11/18 12/11/18 12/11/18 Range/Units 05:57 05:57 06:19 RBC 2.74 L (4.30-5.90) m/uL Hgb 9.0 L (13.0-17.5) gm/dL Hct 25.6 L (39.0-53.0) % RDW 16.5 H (11.5-15.5) % Plt Count 102 L (150-450) k/uL Lymphocytes # 0.2 L (1.0-4.8) k/uL Sodium 127 L (137-145) mmol/L Chloride 92 L (98-107) mmol/L BUN 32 H (9-20) mg/dL Glucose 152 H (74-99) mg/dL POC Glucose (mg/dL) 167 H (75-99) mg/dL Calcium 7.5 L (8.4-10.2) mg/dL Ionized Calcium Triny (4.5-5.3) mg/dL Ferritin (22.0-322.0) ng/mL Vitamin D 25-Hydroxy (30.0-100.0) ng/mL 12/11/18 Range/Units 11:46 RBC (4.30-5.90) m/uL Hgb (13.0-17.5) gm/dL Hct (39.0-53.0) % RDW (11.5-15.5) % Plt Count (150-450) k/uL Lymphocytes # (1.0-4.8) k/uL Sodium (137-145) mmol/L Chloride (98-107) mmol/L BUN (9-20) mg/dL Glucose (74-99) mg/dL POC Glucose (mg/dL) 122 H (75-99) mg/dL Calcium (8.4-10.2) mg/dL Ionized Calcium Triny (4.5-5.3) mg/dL Ferritin (22.0-322.0) ng/mL Vitamin D 25-Hydroxy (30.0-100.0) ng/mL
--- NOTE | 2018-12-11 16:31 | P.PN ---
Subjective Progress Note Date: 12/11/18 Principal diagnosis: Diastolic CHF, acute on chronic This is a 68-year-old male with history of stage IV metastatic esophageal cancer status post chemo and radiation who presents to the hospital with shortness of breath. He also presented with acute on chronic diastolic heart failure with mild troponin elevation not related to an acute cardiac event. Patient is currently sitting up in the chair in no acute distress and doing as well as can be expected. Patient has productive sputum that is bloody and coagulated. Patient continues on 2 L NC. Patient states he has no current complaints of chest pain, chest pressure or palpitations. Patient states shortness of breath continues and that he is very fatigued and weak. Patient states he has very little appetite and has hard time with ambulation due to extreme fatigue. Most recent echo on 12/08/18 showed preserved ejection fraction at 60-65%. Patient currently SR, heart rate 101. 96% on 2L NC. Afebrile. PHYSICAL EXAMINATION: HEENT: Head is atraumatic, normocephalic. Pupils are equal, round. Sclerae anicteric. Conjunctivae are clear. Mucous membranes of the mouth are dry. Neck is supple. There is no jugular venous distention. No carotid bruit is heard. No thyromegaly. LUNGS: Bilateral wheeze and course rhonchi to upper and lower lung lopez. No chest wall tenderness is noted on palpation or with deep breathing. HEART: Regular rate and rhythm without murmurs, rubs or gallops. S1 and S2 heard. ABDOMEN: Abdominal exam revealed normal bowel sounds. The abdomen was soft, non-tender, and without masses, organomegaly, or appreciable enlargement of the abdominal aorta. EXTREMITIES: Examination of the extremities revealed easily palpable radial, femoral and pedal pulses. There was no cyanosis, clubbing. Mild edema to feet only. No calf tenderness noted. VASCULAR: Radial and dorsalis pedis pulses palpated, no evidence of clubbing. NEUROLOGIC: Patient is awake, alert and oriented x3. There were no obvious focal neurologic abnormalities. Pertinent labs include - Low sodium at 127L. Calcium at 7.5L. HGB 9.0/HCT 25.6. FINAL IMPRESSION: 1. metastatic esophageal cancer. 2. acute on chronic diastolic heart failure 3. troponin elevation unrelated to acute cardiac event 4. hyponatremia 5. hypotension PLAN: Start 0.9 normal saline at 100 mL/h 6 hours. Order BMP in a.m. Encourage oral hydration and consider appetite stimulant. Continue same all other medical/medication regime. Start regular diet. Will follow. Objective - Vital Signs Vital signs: Vital Signs Temp 98.4 F 12/11/18 08:45 Pulse 72 12/11/18 13:12 Resp 18 12/11/18 08:45 BP 109/64 12/11/18 08:45 Pulse Ox 96 12/11/18 08:45 Intake & Output 12/10/18 12/11/18 12/11/18 18:59 06:59 18:59 Intake Total 240 120 Output Total 5467 222 2587 Balance -1330 -480 -1000 Weight 78.3 kg Intake: Oral 240 120 Output: Urine 3186 142 1703 Other: Voiding Method Urinal Urinal - Labs CBC & Chem 7: 12/11/18 05:57 12/11/18 05:57 Labs: Abnormal Lab Results - Last 24 Hours (Table) 12/10/18 12/10/18 12/10/18 Range/Units 13:48 16:52 20:47 RBC (4.30-5.90) m/uL Hgb (13.0-17.5) gm/dL Hct (39.0-53.0) % RDW (11.5-15.5) % Plt Count (150-450) k/uL Lymphocytes # (1.0-4.8) k/uL Sodium (137-145) mmol/L Chloride (98-107) mmol/L BUN (9-20) mg/dL Glucose (74-99) mg/dL POC Glucose (mg/dL) 200 H 189 H (75-99) mg/dL Calcium (8.4-10.2) mg/dL Ferritin 1727.3 H (22.0-322.0) ng/mL Vitamin D 25-Hydroxy 15.4 L (30.0-100.0) ng/mL 12/11/18 12/11/18 12/11/18 Range/Units 05:57 05:57 06:19 RBC 2.74 L (4.30-5.90) m/uL Hgb 9.0 L (13.0-17.5) gm/dL Hct 25.6 L (39.0-53.0) % RDW 16.5 H (11.5-15.5) % Plt Count 102 L (150-450) k/uL Lymphocytes # 0.2 L (1.0-4.8) k/uL Sodium 127 L (137-145) mmol/L Chloride 92 L (98-107) mmol/L BUN 32 H (9-20) mg/dL Glucose 152 H (74-99) mg/dL POC Glucose (mg/dL) 167 H (75-99) mg/dL Calcium 7.5 L (8.4-10.2) mg/dL Ferritin (22.0-322.0) ng/mL Vitamin D 25-Hydroxy (30.0-100.0) ng/mL 12/11/18 Range/Units 11:46 RBC (4.30-5.90) m/uL Hgb (13.0-17.5) gm/dL Hct (39.0-53.0) % RDW (11.5-15.5) % Plt Count (150-450) k/uL Lymphocytes # (1.0-4.8) k/uL Sodium (137-145) mmol/L Chloride (98-107) mmol/L BUN (9-20) mg/dL Glucose (74-99) mg/dL POC Glucose (mg/dL) 122 H (75-99) mg/dL Calcium (8.4-10.2) mg/dL Ferritin (22.0-322.0) ng/mL Vitamin D 25-Hydroxy (30.0-100.0) ng/mL
[2018-12-11 17:03] LABS: Glucose,Whole Blood 140 mg/dL (75-99)
[2018-12-11] MEDS: MORPHINE SULFATE 2 MG/ML SYRINGE IVP PRN (19:57)
[2018-12-11] MEDS: PRAVASTATIN SODIUM 20 MG TAB PO SCH (20:42)
[2018-12-11 20:53] LABS: Glucose,Whole Blood 243 mg/dL (75-99)
[2018-12-12 06:11] LABS: Glucose,Whole Blood 129 mg/dL (75-99)
[2018-12-12] MEDS: MORPHINE SULFATE ER 30 MG TABLET PO SCH ×3 (06:30→18:00)
[2018-12-12 07:06] LABS: African American GFR (CKD) >90 (>60 ml/min/1.73 sqM); Anion Gap 6 mmol/L; Blood Urea Nitrogen 24 mg/dL (9-20); Calcium 7.7 mg/dL (8.4-10.2); Carbon Dioxide 28 mmol/L (22-30); Chloride 97 mmol/L (98-107); Glucose 115 mg/dL (74-99); Potassium 4.7 mmol/L (3.5-5.1); Sodium 131 mmol/L (137-145)
[2018-12-12] MEDS: IPRATROPIUM-ALBUTEROL 3 ML NEB INHALATION SCH ×4 (07:39→20:41)
--- NOTE | 2018-12-12 08:28 | P.PN ---
Subjective Progress Note Date: 12/11/18 Principal diagnosis: Multiple bilateral pulmonary nodules suggest present of metastatic disease Shortness of breath due to multifactorial origin Small left pleural effusion Esophageal cancer Acute on chronic diastolic heart failure Generalized weakness and medical debility Severe COPD emphysema 12/11/2018, patient seen eval examined during the rounds labs reviewed medica tions reviewed computed tomography scan of the chest reviewed there irregular subcentimeter nodules were seen bilaterally however multiple nodule they were seen in the chest x-ray are more of a calcified nodule suggestive of old prior recurrent pneumonitis disease, calcified lymph node prominence is seen as well will follow this patient closely with serial computed tomography scan no aggressive intervention like biopsy has been recommended monitor closely patient to be started on chemotherapy as planned once clinically stable and performance status improved This is a 68-year-old male with the prior medical history of stage IV esophageal cancer presenting to the emergency department shortness of breath. Patient has been in and out of the hospital recently. Patient has had dyspnea over the past couple of weeks, worse the past few days. Patient also noted progressive generalized weakness was in fact admitted at [facility] with congestive heart failure patient just has been initiated on chemotherapy I believe first cycle was terminated due to health status however patient was attempted to undergo chemotherapy again and postponed due to generalized progressive weakness and breathing difficulties, bone scan has been unremarkable chest x-ray revealed bilateral small nodular densities multiple possibility of metastatic disease cannot be excluded, echocardiogram revealed ejection fraction of 60%, no evidence of pulmonary hypertension Objective - Vital Signs Vital signs: Vital Signs Temp 98.6 F 12/11/18 15:50 Pulse 89 12/12/18 00:00 Resp 18 12/12/18 00:00 BP 92/51 12/11/18 15:50 Pulse Ox 93 L 12/11/18 20:17 Intake & Output 12/11/18 12/11/18 12/12/18 06:59 18:59 05:59 Intake Total 120 200 200 Output Total 600 1650 Balance -480 -1450 200 Weight 78.3 kg Intake: Oral 120 200 200 Output: Urine 600 1650 Other: Voiding Method Urinal Urinal - Exam - Constitutional General appearance: average body habitus, cooperative, disheveled, mild distress - EENT Eyes: EOMI, PERRLA, poor dentition ENT: normal oropharynx Ears: bilateral: normal - Neck Neck: normal ROM Carotids: bilateral: upstroke normal Thyroid: bilateral: normal size - Respiratory Respiratory: bilateral: diminished, rales (Fine bilateral), negative: CTA, rhonchi, wheezing, prolonged expiration, prolonged inspiration - Cardiovascular Rhythm: regular Heart sounds: normal: S1, S2 - Gastrointestinal General gastrointestinal: distended - Integumentary Integumentary: normal turgor - Neurologic Neurologic: CNII-XII intact - Musculoskeletal Musculoskeletal: gait normal, generalized weakness, strength equal bilaterally - Psychiatric Psychiatric: A&O x's 3, appropriate affect, intact judgm - Labs CBC & Chem 7: 12/11/18 05:57 12/12/18 05:44 Labs: Abnormal Lab Results - Last 24 Hours (Table) 12/11/18 12/11/18 12/11/18 Range/Units 05:57 05:57 06:19 RBC 2.74 L (4.30-5.90) m/uL Hgb 9.0 L (13.0-17.5) gm/dL Hct 25.6 L (39.0-53.0) % RDW 16.5 H (11.5-15.5) % Plt Count 102 L (150-450) k/uL Lymphocytes # 0.2 L (1.0-4.8) k/uL Sodium 127 L (137-145) mmol/L Chloride 92 L (98-107) mmol/L BUN 32 H (9-20) mg/dL Glucose 152 H (74-99) mg/dL POC Glucose (mg/dL) 167 H (75-99) mg/dL Calcium 7.5 L (8.4-10.2) mg/dL 12/11/18 12/11/18 12/11/18 Range/Units 11:46 16:52 20:52 RBC (4.30-5.90) m/uL Hgb (13.0-17.5) gm/dL Hct (39.0-53.0) % RDW (11.5-15.5) % Plt Count (150-450) k/uL Lymphocytes # (1.0-4.8) k/uL Sodium (137-145) mmol/L Chloride (98-107) mmol/L BUN (9-20) mg/dL Glucose (74-99) mg/dL POC Glucose (mg/dL) 122 H 140 H 243 H (75-99) mg/dL Calcium (8.4-10.2) mg/dL Assessment and Plan Assessment: Multiple bilateral pulmonary nodules may suggest present of metastatic disease, however most of the nodules are calcified suggestive of the prior granulomatous disease, few subsegment subcentimeter bilateral nodules of unclear significance is seen we'll discuss with oncology Shortness of breath due to multifactorial origin Small left pleural effusion Esophageal cancer Acute on chronic diastolic heart failure Generalized weakness and medical debility Severe COPD emphysema Plan: Continue gentle diuresis Bronchodilators Hold on IV steroids Computed tomography scan of the chest without any contrast for lung nodules reviewed with findings as noted above Further recommendations pending plan of care as per clinical response of patient Time with Patient: Greater than 30
--- NOTE | 2018-12-12 08:30 | P.PN ---
Subjective Progress Note Date: 12/12/18 Principal diagnosis: Multiple bilateral pulmonary nodules suggest present of metastatic disease Shortness of breath due to multifactorial origin Small left pleural effusion Esophageal cancer Acute on chronic diastolic heart failure Generalized weakness and medical debility Severe COPD emphysema 12/12/2018, patient seen eval examined during the rounds he is sitting upright on the bed he is slightly short of breath he choked food particle earlier this morning, however denies similar occurrence in the past, denies any chest pain still of ongoing shortness of breath but severity has improved 12/11/2018, patient seen eval examined during the rounds labs reviewed medica tions reviewed computed tomography scan of the chest reviewed there irregular subcentimeter nodules were seen bilaterally however multiple nodule they were seen in the chest x-ray are more of a calcified nodule suggestive of old prior recurrent pneumonitis disease, calcified lymph node prominence is seen as well will follow this patient closely with serial computed tomography scan no aggressive intervention like biopsy has been recommended monitor closely patient to be started on chemotherapy as planned once clinically stable and performance status improved This is a 68-year-old male with the prior medical history of stage IV esophageal cancer presenting to the emergency department shortness of breath. Patient has been in and out of the hospital recently. Patient has had dyspnea over the past couple of weeks, worse the past few days. Patient also noted progressive generalized weakness was in fact admitted at [facility] with congestive heart failure patient just has been initiated on chemotherapy I believe first cycle was terminated due to health status however patient was attempted to undergo chemotherapy again and postponed due to generalized progressive weakness and breathing difficulties, bone scan has been unremarkable chest x-ray revealed bilateral small nodular densities multiple possibility of metastatic disease cannot be excluded, echocardiogram revealed ejection fraction of 60%, no evidence of pulmonary hypertension Objective - Vital Signs Vital signs: Vital Signs Temp 98.5 F 12/12/18 04:00 Pulse 100 12/12/18 07:50 Resp 18 12/12/18 04:00 BP 106/69 12/12/18 04:00 Pulse Ox 96 12/12/18 04:00 Intake & Output 12/11/18 12/12/18 12/12/18 19:59 06:59 18:59 Intake Total Output Total 200 Balance -200 Weight Intake: Intake, IV Titration Amount Sodium Chloride 0.9% 1, 000 ml @ 100 mls/hr IV . Q10H [facility] Rx#:[id number] Oral Output: Urine 200 Other: Voiding Method - Exam - Constitutional General appearance: average body habitus, cooperative, disheveled, mild distress - EENT Eyes: EOMI, PERRLA, poor dentition ENT: normal oropharynx Ears: bilateral: normal - Neck Neck: normal ROM Carotids: bilateral: upstroke normal Thyroid: bilateral: normal size - Respiratory Respiratory: bilateral: diminished, rales (Fine bilateral), negative: CTA, rhonchi, wheezing, prolonged expiration, prolonged inspiration - Cardiovascular Rhythm: regular Heart sounds: normal: S1, S2 - Gastrointestinal General gastrointestinal: distended - Integumentary Integumentary: normal turgor - Neurologic Neurologic: CNII-XII intact - Musculoskeletal Musculoskeletal: gait normal, generalized weakness, strength equal bilaterally - Psychiatric Psychiatric: A&O x's 3, appropriate affect, intact judgm - Labs CBC & Chem 7: 12/11/18 05:57 12/12/18 05:44 Labs: Abnormal Lab Results - Last 24 Hours (Table) 12/11/18 12/11/18 12/11/18 Range/Units 11:46 16:52 20:52 Sodium (137-145) mmol/L Chloride (98-107) mmol/L BUN (9-20) mg/dL Glucose (74-99) mg/dL POC Glucose (mg/dL) 122 H 140 H 243 H (75-99) mg/dL Calcium (8.4-10.2) mg/dL 12/12/18 12/12/18 Range/Units 05:44 06:10 Sodium 131 L (137-145) mmol/L Chloride 97 L (98-107) mmol/L BUN 24 H (9-20) mg/dL Glucose 115 H (74-99) mg/dL POC Glucose (mg/dL) 129 H (75-99) mg/dL Calcium 7.7 L (8.4-10.2) mg/dL Assessment and Plan Assessment: Multiple bilateral pulmonary nodules may suggest present of metastatic disease, however most of the nodules are calcified suggestive of the prior granulomatous disease, few subsegment subcentimeter bilateral nodules of unclear significance is seen we'll discuss with oncology Shortness of breath due to multifactorial origin Small left pleural effusion Esophageal cancer Acute on chronic diastolic heart failure Generalized weakness and medical debility Severe COPD emphysema Plan: Continue gentle diuresis Bronchodilators Hold on IV steroids Computed tomography scan of the chest without any contrast for lung nodules reviewed with findings as noted above Further recommendations pending plan of care as per clinical response of patient Chemotherapy to be initiated once performance level has improved Time with Patient: Greater than 30
[2018-12-12] MEDS ORDERED: ERGOCALCIFEROL 50,000 UNIT CAP PO SCH (09:00)
[2018-12-12] MEDS: NYSTATIN 100,000 UNIT/ML SUSP 500,000 UNIT/5 ML CUP PO SCH ×4 (10:08→21:08)
[2018-12-12] MEDS: HEPARIN SODIUM,PORCINE 5,000 UNIT/ML 1 ML VIAL SQ SCH ×2 (10:08→21:07)
[2018-12-12] MEDS: FUROSEMIDE 40 MG TAB PO SCH (10:08)
[2018-12-12] MEDS: LISINOPRIL 2.5 MG TAB PO SCH (10:09)
[2018-12-12] MEDS: QUEtiapine 50 MG TAB PO SCH ×2 (10:09→21:08)
[2018-12-12] MEDS: PANTOPRAZOLE 40 MG TABLET PO SCH (10:09)
[2018-12-12] MEDS: ASPIRIN 81 MG PO SCH (10:09)
[2018-12-12] MEDS: TAMSULOSIN 0.4 MG CAP.ER.24H PO SCH ×2 (10:09→21:08)
[2018-12-12] MEDS: metFORMIN 500 MG TAB PO SCH ×2 (10:09→21:08)
[2018-12-12] MEDS: DEXAMETHASONE 2 MG TAB PO SCH ×3 (10:09→21:08)
[2018-12-12] MEDS: DOCUSATE 100 MG CAP PO SCH (10:09)
[2018-12-12] MEDS: GABAPENTIN 300 MG CAP PO SCH ×3 (10:10→21:08)
[2018-12-12] MEDS: METOPROLOL SUCCINATE (ER) 25 MG TAB.ER.24H PO SCH (10:10)
[2018-12-12 12:08] LABS: Glucose,Whole Blood 132 mg/dL (75-99)
--- NOTE | 2018-12-12 12:44 | P.PN ---
Subjective Progress Note Date: 12/12/18 Principal diagnosis: Diastolic CHF, acute on chronic This is a 68-year-old male with history of stage IV metastatic esophageal cancer status post chemo and radiation who presents to the hospital with shortness of breath. He also presented with acute on chronic diastolic heart failure with mild troponin elevation not related to an acute cardiac event. Patient is currently sitting up in the chair in no acute distress and doing as well as can be expected. Patient has productive sputum that is bloody and coagulated. Patient continues on 2 L NC. Patient states he has no current complaints of chest pain, chest pressure or palpitations. Patient states shortness of breath continues and that he is very fatigued and weak. Patient states he has very little appetite and has hard time with ambulation due to extreme fatigue. Most recent echo on 12/08/18 showed preserved ejection fraction at 60-65%. 12/12/2018 Patient seen this a.m. lying in bed in no acute distress. Patient states he feels much improved, cough and lower extremity edema is better. Sodium improved with IV hydration, currently at 131. BUN 24. Troponin WNL x2. Low protein levels. Patient does state he has a hard time eating breakfast and sometimes chokes on his food. Patient advised to eat breakfast sitting up in chair only. Patient continue sinus rhythm on monitor with PACs, HR 86. VSS. 96% on 2 L O2 NC. PHYSICAL EXAMINATION: HEENT: Head is atraumatic, normocephalic. Pupils are equal, round. Sclerae anicteric. Conjunctivae are clear. Mucous membranes of the mouth are moist. Neck is supple. There is no jugular venous distention. No carotid bruit is heard. No thyromegaly. LUNGS: Mild diffuse wheeze with mildly diminished lungs to upper and lower lung lopez. No chest wall tenderness is noted on palpation or with deep breathing. HEART: Regular rate and rhythm without murmurs, rubs or gallops. S1 and S2 heard. ABDOMEN: Abdominal exam revealed normal bowel sounds. The abdomen was soft, non- tender, and without masses, organomegaly, or appreciable enlargement of the abdominal aorta. EXTREMITIES: Examination of the extremities revealed easily palpable radial, femoral and pedal pulses. There was no cyanosis, clubbing. Scant edema to feet only. No calf tenderness noted. VASCULAR: Radial and dorsalis pedis pulses palpated, no evidence of clubbing. NEUROLOGIC: Patient is awake, alert and oriented x3. There were no obvious focal neurologic abnormalities. FINAL IMPRESSION: 1. Metastatic esophageal cancer. 2. Acute on chronic diastolic heart failure, improved 3. Troponin elevation, NO acute cardiac event 4. Hyponatremia, improved 5. Hypotension, improved PLAN: Pt CLEAR FOR DISHCHARGE from a cardiology standpoint. Dr. Arroyo to consider final decision of discharge due to pt's multiple medical issues. Encourage oral hydration, sitting up in chair for meals and consider appetite stimulant. Consider swallow study as well. Continue same all other medical/medication regime. Objective - Vital Signs Vital signs: Vital Signs Temp 98.5 F 12/12/18 04:00 Pulse 96 12/12/18 11:31 Resp 18 12/12/18 04:00 BP 106/69 12/12/18 04:00 Pulse Ox 96 12/12/18 04:00 Intake & Output 12/11/18 12/12/18 12/12/18 19:59 06:59 18:59 Intake Total Output Total 200 Balance -200 Weight Intake: Intake, IV Titration Amount Sodium Chloride 0.9% 1, 000 ml @ 100 mls/hr IV . Q10H [facility] Rx#:[id number] Oral Output: Urine 200 Other: Voiding Method - Labs CBC & Chem 7: 12/11/18 05:57 12/12/18 05:44 Labs: Abnormal Lab Results - Last 24 Hours (Table) 12/11/18 12/11/18 12/12/18 Range/Units 16:52 20:52 05:44 Sodium 131 L (137-145) mmol/L Chloride 97 L (98-107) mmol/L BUN 24 H (9-20) mg/dL Glucose 115 H (74-99) mg/dL POC Glucose (mg/dL) 140 H 243 H (75-99) mg/dL Calcium 7.7 L (8.4-10.2) mg/dL 12/12/18 12/12/18 Range/Units 06:10 11:51 Sodium (137-145) mmol/L Chloride (98-107) mmol/L BUN (9-20) mg/dL Glucose (74-99) mg/dL POC Glucose (mg/dL) 129 H 132 H (75-99) mg/dL Calcium (8.4-10.2) mg/dL
[2018-12-12] MEDS: MORPHINE SULFATE 2 MG/ML SYRINGE IVP PRN ×2 (12:54→23:08)
--- NOTE | 2018-12-12 15:03 | P.PN ---
Subjective Progress Note Date: 12/12/18 Principal diagnosis: Diagnosis: #1 status post chemotherapy first infusion and was [facility]. #2 generalized weakness, volume overload, left lower extremity spasm with pain. #3 x-rays of the left lower extremities and the bone scan to rule out metastasis was negative. #4 decompression of the low back with laminectomy and kyphoplasty , with a adenocarcinoma of the lower esophagus. By endoscopy and biopsy at [facility]. #5 dysphagia secondary to lower esophageal cancer, #6 moderate to severe protein calorie deficiency with the associated edema secondary to hypoproteinemia. #7 hyponatremia with dilutional effect. #8 abnormal troponin 3, cardiology indicating related to the cancer. #9 anemia secondary to chronic disease and cancer. #10 COPD, history of pulmonary fibrosis, lost night he had hemoptysis. Progress note date of service 12/12/2018. I did discuss with the patient and his in detail and extended time for the future planning for the patient. I reviewed his laboratory, with the sodium improving to 131 after 6 hours of IV normal saline with the moderate improvement in blood pressure however the blood pressure dropped again to hypotensive with the current blood pressure 81/49 at 1205. His vital sign is temperature 97.9 F oral his heart rate 100/m and respiratory rate 18/m, pulse ox 97 on 2 L nasal cannula. Patient was seen by Dr. JAMESON Dunbar today lock and dam operator with his final impression metastatic esophageal cancer, acute on the chronic diastolic heart failure improved, hyponatremia improved, hypo-tension improved, Patient subsequently at noontime his blood pressure drop again as mentioned above to hypotensive 81/49. Also he stated that troponin elevation with no acute cardiac event. Patient seen also by Dr. Reid Reed, pulmonary and critical care, who stated in his assessment, multiple bilateral pulmonary nodule may suggest present of metastatic disease however most of the nodules are calcified suggestive of prior granulomatous disease, PE subsegmental subcentimeter bilateral nodule of unclear significance is seen well. Shortness of breath was multifactorial with a small left pleural effusion Patient has been on dexamethasone 2 mg 3 times a day by the oncology however his blood pressure drop with the hypotensive with the possibility of adrenal suppression, we'll start Solu-Medrol 60 mg every 8 hour for 3 doses to see if the blood pressure improved. Patient has advanced hypoproteinemia hypoalbuminemia with the multi-factorial reasons, protein calorie deficiency, high metabolic rate with the cancer and metastasis. And edema secondary to hypoalbuminemia hypoproteinemia. Discussed with the patient and his in regard of future planning of the care of the patient, discussed palliative care and consult found that they don't see the patient in the hospital per his nurse after she woke to the complex case manager. Discussed the [facility], his believe that they will allow him to have the chemotherapy, however they contacted the complex case manager and she stated [facility] Discussed also rehabilitation at [facility] inpatient which is controlled by Dr. Mattie Vasquez lithoplate maker and we consulted him however he did not see the patient yet with the possibility he will see the patient tomorrow however we don't know if the chemotherapy that given through [facility] procedure, may not allow the patient for chemotherapy in the rehabilitation [facility] or [facility] and we don't have much of a guidance or communication with the oncology for that purpose what the plan for patient to future treatment. Patient severely weakness, hypotensive with blood pressure 81/49 could not be send home with no care, meanwhile S patient discussed with him and his she have misunderstanding because nobody clarified the issue with her we hoping that complex case manager and load planner discuss it with the patient and his as well as the oncology group. Patient himself despite the discussion still insisted on full code, and he wants to be treated with chemotherapy. From the cardiology point of view that patient can be discharged. His laboratory indicating that sodium 131 still low potassium 4.7 chloride 97 anion gap 28 and BUN of 6 creatinine 24 his creatinine 0.70 with estimated glomerular filtration rate more than 90. Patient is diabetic and has been monitored and he is on metformin and also added to insulin with the CBG/POC glucose has been fairly stable. Patient started on vitamin D supplementation detail 50,000 once a week. Also on calcium carbonate his calcium level improved minimally blood tests to 7.7 however that is too early to expect improvement. On examination: Patient is lethargic, has tolerable pain with the current program. Patient was started on the pain protocol medication at [facility] and followed by the oncology by [facility]. On exam [id number]. Head was normocephalic and atraumatic, pupil was reactive, oropharynx negative able to eat however Ali he had dysphagia mild. Neck was supple no JVD no thyromegaly no lymphadenopathy trachea midline. Chest was evaluated with a history of hyperinflation and COPD with the question of metastasis to the lung. Cardiac no chest pain and he had elevated troponin on admission was mentioned that is not cardiac in origin by the cardiology. He had edema of the lower extremities secondary to hypoproteinemia with the underlying protein calorie deficiency. Abdomen soft positive bowel sounds no tenderness in the four-quadrant. Extremities: He had atrophic muscles especially left lower extremities with the pain radiated from lower back which he has surgery in [facility] with decompression laminectomy with the found she has metastasis to the back. He still have edema on the dorsum of the feet and ankle it is improving however not resolved yet. Neurologically: He is clear he can communicate and however it appears to me that he had denial of his disease extent. He is on the rehab in the hospital. No evidence of strokes. Assessment: Hypotension blood pressure 81/49 after improvement with the IV normal saline given for [address] JAMESON Dunbar. Adrenal insufficiency ordered or suppression with the dexamethasone prolongated use. 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 Probability of pulmonary metastasis by the x-ray and CAT scan of the chest. Hyponatremia not completely recovered Hypocalcemia, vitamin D deficiency/insufficiency. COPD, questionable pulmonary fibrosis. Diabetes mellitus type 2. History of ex-smoker. Walking disability with her generalized weakness. Plan: We'll start Solu-Medrol 60 mg every 8 INR with the underlying hypotension and start 0.9 normal saline IV in the rate of 75 mL an hour for 12 hours. I discussed that with the nurse who called the complex case manager and with the extensive discussion in regard of the plan for the patient disposition. Objective - Vital Signs Vital signs: Vital Signs Temp 97.9 F 12/12/18 12:05 Pulse 100 12/12/18 12:05 Resp 18 12/12/18 12:05 BP 81/49 12/12/18 12:05 Pulse Ox 97 12/12/18 12:05 Intake & Output 12/11/18 12/12/18 12/12/18 19:59 06:59 18:59 Intake Total Output Total 200 Balance -200 Weight Intake: Intake, IV Titration Amount Sodium Chloride 0.9% 1, 000 ml @ 100 mls/hr IV . Q10H [facility] Rx#:[id number] Oral Output: Urine 200 Other: Voiding Method - Labs CBC & Chem 7: 12/11/18 05:57 12/12/18 05:44 Labs: Abnormal Lab Results - Last 24 Hours (Table) 12/11/18 12/11/18 12/12/18 Range/Units 16:52 20:52 05:44 Sodium 131 L (137-145) mmol/L Chloride 97 L (98-107) mmol/L BUN 24 H (9-20) mg/dL Glucose 115 H (74-99) mg/dL POC Glucose (mg/dL) 140 H 243 H (75-99) mg/dL Calcium 7.7 L (8.4-10.2) mg/dL 12/12/18 12/12/18 Range/Units 06:10 11:51 Sodium (137-145) mmol/L Chloride (98-107) mmol/L BUN (9-20) mg/dL Glucose (74-99) mg/dL POC Glucose (mg/dL) 129 H 132 H (75-99) mg/dL Calcium (8.4-10.2) mg/dL
[2018-12-12] MEDS: SODIUM CHLORIDE 0.9% 1,000 ML IV SCH (15:46)
[2018-12-12] MEDS: methylPREDNISolone SOD SUCCI 125 MG/2 ML VIAL IV SCH ×2 (16:02→23:07)
[2018-12-12 17:14] LABS: Glucose,Whole Blood 241 mg/dL (75-99)
[2018-12-12 20:48] LABS: Glucose,Whole Blood 285 mg/dL (75-99)
[2018-12-12] MEDS: PRAVASTATIN SODIUM 20 MG TAB PO SCH (21:08)
[2018-12-12] MEDS: INSULIN ASPART (NovoLOG) 100 UNIT/ML VIAL SQ SCH (22:38)
[2018-12-13] MEDS: MORPHINE SULFATE ER 30 MG TABLET PO SCH ×4 (02:29→20:25)
[2018-12-13] MEDS: IPRATROPIUM-ALBUTEROL 3 ML NEB INHALATION PRN (03:12)
[2018-12-13] MEDS: SODIUM CHLORIDE 0.9% 1,000 ML IV SCH (05:52)
[2018-12-13 06:10] LABS: Glucose,Whole Blood 198 mg/dL (75-99)
[2018-12-13] MEDS: INSULIN ASPART (NovoLOG) 100 UNIT/ML VIAL SQ SCH ×4 (06:30→21:32)
[2018-12-13] MEDS ORDERED: INSULIN ASPART (NovoLOG) 100 UNIT/ML VIAL SQ SCH (07:30)
[2018-12-13] MEDS: IPRATROPIUM-ALBUTEROL 3 ML NEB INHALATION SCH ×4 (07:50→19:19)
[2018-12-13] MEDS: GABAPENTIN 300 MG CAP PO SCH ×4 (09:45→20:25)
[2018-12-13] MEDS: methylPREDNISolone SOD SUCCI 125 MG/2 ML VIAL IV SCH (09:45)
[2018-12-13] MEDS: HEPARIN SODIUM,PORCINE 5,000 UNIT/ML 1 ML VIAL SQ SCH ×2 (09:45→20:27)
[2018-12-13] MEDS: HYDROcodone/APAP 10-325MG 1 EACH TAB PO PRN (09:46)
[2018-12-13] MEDS: METOPROLOL SUCCINATE (ER) 25 MG TAB.ER.24H PO SCH (09:48)
[2018-12-13] MEDS: DEXAMETHASONE 2 MG TAB PO SCH ×3 (09:48→21:31)
[2018-12-13] MEDS: metFORMIN 500 MG TAB PO SCH ×2 (09:48→21:32)
[2018-12-13] MEDS: PANTOPRAZOLE 40 MG TABLET PO SCH (09:49)
--- NOTE | 2018-12-13 10:40 | P.PN ---
Subjective Progress Note Date: 12/13/18 This is a 68-year-old gentleman with history of metastatic esophageal cancer, status post chemo and radiation he presented to the hospital with symptoms of shortness of breath that. Patient was seen in consultation by Dr. Ye, admitted with diastolic congestive heart failure. Patient also had some mild abnormality in troponin, likely related to malignancy, not suggestive of acute coronary syndrome. Patient's weight today is down 3 kg, echocardiogram with Doppler study revealed an ejection fraction of 60-65%. Blood pressure running in the 80s systolic, patient is asymptomatic. His lisinopril will be given at noon daily. Labs from today are pending. 12/10/2018 Patient was seen and examined this morning, feeling much better overall. The lungs are clear. Weight is down today. Blood cell count 5.6, hemoglobin 8.9, platelet count 91. Sodium 128, potassium 4.8, BUN 34 and creatinine 0.6. 12/13/2018 Patient seen and examined this morning, blood pressure 113/60 with a heart rate in the 90s, 94% on 3 L of oxygen. Objective - Vital Signs Vital signs: Vital Signs Temp 98.6 F 12/13/18 09:40 Pulse 97 12/13/18 09:40 Resp 18 12/13/18 09:40 BP 113/59 12/13/18 09:40 Pulse Ox 94 L 12/13/18 09:40 Intake & Output 12/12/18 12/13/18 12/13/18 18:59 06:59 18:59 Intake Total 990 222 Output Total 200 1400 Balance -200 -410 222 Weight 77.2 kg Intake: IV 30 Invasive Line 1 30 Oral 960 222 Output: Urine 200 1400 Other: Voiding Method Urinal # Voids 1 - Exam PHYSICAL EXAMINATION: GENERAL: 68-year-old gentleman in no acute distress at time of my examination HEENT: Head is atraumatic, normocephalic. Pupils equal, round. Sclera anicteric. Conjunctiva are clear. Mucous membranes of the mouth are moist. Neck is supple. There is no elevated jugular venous pressure. No carotid bruit is heard. HEART EXAMINATION: Heart S1, S2 normal. No murmur or gallop heard. CHEST EXAMINATION: Lungs are clear to auscultation and precussion. No chest wall tenderness is noted on palpation or with deep breathing. ABDOMEN: Soft, nontender. Bowel sounds are heard. No organomegaly noted. EXTREMITIES: 2+ peripheral pulses with 3+ bilateral peripheral edema and no calf tenderness noted. Significant edema in the left arm. NEUROLOGIC patient is awake, alert and oriented 3 . . - Labs CBC & Chem 7: 12/11/18 05:57 12/12/18 05:44 Labs: Abnormal Lab Results - Last 24 Hours (Table) 12/12/18 12/12/18 12/12/18 Range/Units 11:51 17:02 20:46 POC Glucose (mg/dL) 132 H 241 H 285 H (75-99) mg/dL 12/13/18 Range/Units 06:09 POC Glucose (mg/dL) 198 H (75-99) mg/dL Assessment and Plan Plan: Assessment and plan #1 diastolic congestive heart failure acute on chronic #2 abnormality in troponin, not consistent with acute coronary syndrome, likely secondary to malignancy. #3 metastatic esophageal cancer Plan From cardiology's perspective, patient is cleared for discharge. We'll make a follow-up appointment in the office post discharge. DNP note has been reviewed, I agree with a documented findings and plan of care. Patient was seen and examined.
[2018-12-13 11:38] LABS: Glucose,Whole Blood 147 mg/dL (75-99)
--- NOTE | 2018-12-13 11:40 | P.PN ---
Subjective Progress Note Date: 12/13/18 Principal diagnosis: Multiple bilateral pulmonary nodules suggest present of metastatic disease Shortness of breath due to multifactorial origin Small left pleural effusion Esophageal cancer Acute on chronic diastolic heart failure Generalized weakness and medical debility Severe COPD emphysema 12/13/2018, patient seen eval reexamined during the rounds care plan discussed with patient and present at the bedside at length, updated about computed tomography scan finding, patient is being considered for placement in rehab with the intent to give palliative chemotherapy over there he is stable in terms of shortness of breath complain of generalized weakness denies any cough or sputum production 12/12/2018, patient seen eval examined during the rounds he is sitting upright on the bed he is slightly short of breath he choked food particle earlier this morning, however denies similar occurrence in the past, denies any chest pain still of ongoing shortness of breath but severity has improved 12/11/2018, patient seen eval examined during the rounds labs reviewed medications reviewed computed tomography scan of the chest reviewed there irregular subcentimeter nodules were seen bilaterally however multiple nodule they were seen in the chest x-ray are more of a calcified nodule suggestive of old prior recurrent pneumonitis disease, calcified lymph node prominence is seen as well will follow this patient closely with serial computed tomography scan no aggressive intervention like biopsy has been recommended monitor closely patient to be started on chemotherapy as planned once clinically stable and performance status improved This is a 68-year-old male with the prior medical history of stage IV esophageal cancer presenting to the emergency department shortness of breath. Patient has been in and out of the hospital recently. Patient has had dyspnea over the past couple of weeks, worse the past few days. Patient also noted progressive generalized weakness was in fact admitted at [facility] with congestive heart failure patient just has been initiated on chemotherapy I believe first cycle was terminated due to health status however patient was attempted to undergo chemotherapy again and postponed due to generalized progressive weakness and breathing difficulties, bone scan has been unremarkable chest x-ray revealed bilateral small nodular densities multiple possibility of metastatic disease cannot be excluded, echocardiogram revealed ejection fraction of 60%, no evidence of pulmonary hypertension Objective - Vital Signs Vital signs: Vital Signs Temp 98.6 F 12/13/18 09:40 Pulse 90 12/13/18 11:08 Resp 18 12/13/18 09:40 BP 113/59 12/13/18 09:40 Pulse Ox 94 L 12/13/18 09:40 Intake & Output 12/12/18 12/13/18 12/13/18 18:59 06:59 18:59 Intake Total 990 232 Output Total 200 1400 Balance -200 -410 232 Weight 77.2 kg Intake: IV 30 10 Invasive Line 1 30 10 Oral 960 222 Output: Urine 200 1400 Other: Voiding Method Urinal Urinal # Voids 1 - Exam - Constitutional General appearance: average body habitus, cooperative, disheveled, mild distress - EENT Eyes: EOMI, PERRLA, poor dentition ENT: normal oropharynx Ears: bilateral: normal - Neck Neck: normal ROM Carotids: bilateral: upstroke normal Thyroid: bilateral: normal size - Respiratory Respiratory: bilateral: diminished, rales (Fine bilateral), negative: CTA, rhonchi, wheezing, prolonged expiration, prolonged inspiration - Cardiovascular Rhythm: regular Heart sounds: normal: S1, S2 - Gastrointestinal General gastrointestinal: distended - Integumentary Integumentary: normal turgor - Neurologic Neurologic: CNII-XII intact - Musculoskeletal Musculoskeletal: gait normal, generalized weakness, strength equal bilaterally - Psychiatric Psychiatric: A&O x's 3, appropriate affect, intact judgm - Labs CBC & Chem 7: 12/11/18 05:57 12/12/18 05:44 Labs: Abnormal Lab Results - Last 24 Hours (Table) 12/12/18 12/12/18 12/12/18 Range/Units 11:51 17:02 20:46 POC Glucose (mg/dL) 132 H 241 H 285 H (75-99) mg/dL 12/13/18 Range/Units 06:09 POC Glucose (mg/dL) 198 H (75-99) mg/dL Assessment and Plan Assessment: Multiple bilateral pulmonary nodules may suggest present of metastatic disease, however most of the nodules are calcified suggestive of the prior granulomatous disease, few subsegment subcentimeter bilateral nodules of unclear significance is seen we will consider PET scan as outpatient, agree with a rehab placement and palliative chemotherapy is planned Shortness of breath due to multifactorial origin Small left pleural effusion Esophageal cancer Acute on chronic diastolic heart failure Generalized weakness and medical debility Severe COPD emphysema Plan: Continue gentle diuresis Bronchodilators Hold on IV steroids Computed tomography scan of the chest without any contrast for lung nodules reviewed with findings as noted above, finding discussed with patient and p ricardo's at length Further recommendations pending plan of care as per clinical response of patient Chemotherapy to be initiated once performance level has improved Time with Patient: Greater than 30
[2018-12-13] MEDS: ASPIRIN 81 MG PO SCH (12:46)
[2018-12-13] MEDS: LISINOPRIL 2.5 MG TAB PO SCH (12:47)
[2018-12-13] MEDS: TAMSULOSIN 0.4 MG CAP.ER.24H PO SCH ×2 (12:47→20:26)
[2018-12-13] MEDS: NYSTATIN 100,000 UNIT/ML SUSP 500,000 UNIT/5 ML CUP PO SCH ×4 (12:47→21:32)
[2018-12-13] MEDS: QUEtiapine 50 MG TAB PO SCH ×2 (12:48→20:25)
[2018-12-13] MEDS: DOCUSATE 100 MG CAP PO SCH (12:49)
[2018-12-13] MEDS: FUROSEMIDE 40 MG TAB PO SCH (12:52)
[2018-12-13 13:17] LABS: African American GFR (CKD) >90 (>60 ml/min/1.73 sqM); Anisocytosis Slight; Basophils # (A) 0.1 k/uL (0-0.2); Basophils % (A) 1 %; Blood Urea Nitrogen 33 mg/dL (9-20); Calcium 8.4 mg/dL (8.4-10.2); Carbon Dioxide 26 mmol/L (22-30); Eosinophils % (A) 0 %; Glucose 139 mg/dL (74-99); HGB 9.3 gm/dL (13.0-17.5); Lymphocytes # (A) 0.2 k/uL (1.0-4.8); Lymphocytes % (A) 2 %; MCH 32.4 pg (25.0-35.0); MCHC 34.5 g/dL (31.0-37.0); MCV 94.1 fL (80.0-100.0); Mean Platelet Volume 6.2; Monocytes # (A) 0.3 k/uL (0-1.0); Monocytes % (A) 3 %; Neutrophils # (A) 8.9 k/uL (1.3-7.7); Neutrophils % (A) 93 %; Platelet Count 133 k/uL (150-450); RBC 2.87 m/uL (4.30-5.90); RDW 16.7 % (11.5-15.5); WBC 9.6 k/uL (3.8-10.6)
[2018-12-13 13:34] LABS: Anion Gap 8 mmol/L; Chloride 95 mmol/L (98-107); Potassium 5.5 mmol/L (3.5-5.1); Sodium 129 mmol/L (137-145)
--- NOTE | 2018-12-13 15:56 | CDI ---
Documentation Clarification Form Date: 12/13/2018 3:32:31 PM From: Carmelina Oglesby RN, CCDS Admit Date: 12/07/2018 8:00:00 PM Patient Name: Mike Álvarez Visit Number: [id number] Discharge Date: ATTENTION: The Clinical Documentation Specialists (CDI) and [facility] Coding Staff appreciate your assistance in clarifying documentation. Please respond to the clarification below the line at the bottom and electronically sign. The CDI & [facility] Coding staff will review the response and follow-up if needed. Please note: Queries are made part of the Legal Health Record. If you have any questions, please contact the author of this message via ITS. Dr. lAo Arroyo CHF is documented in the cardiology consult. History/Risk Factors: Esophageal cancer on chemotherapy, Diabetes Mellitus, Hypertension, Renal disease Clinical Indicators: [id number] male present shortness of breath, dyspnea worse the past few days. He is having edema of his legs and somewhat of the arms, more so on the left side. Patient notes that he did receive a lot of fluids with chemotherapy today. Emergency department evaluation: Fluid overload VS/Pulse OX: 127/79 109 20 97.8 92 % 2/L NC BNP: 723 Echocardiogram Results: EF between 60-65% Chest X Ray on admission: Findings favoring cardiogenic fluid overload with trace pleural effusion and mild interstitial pulmonary edema. 12/08/18 Cardiology consult: (Dr. Maki) Acute onset congestive heart failure, probably diastolic 12/13/18 Diastolic congestive heart failure acute on chronic, abnormality in troponin, not consistent with acute coronary syndrome likely secondary to malignancy Treatment: Lasix IV, change to PO Toprol XL In your professional opinion, can you please clarify if you agree with the documentation? Acute on Chronic Systolic Heart failure Acute on Chronic Systolic Heart failure ruled out Unable to Determine Other, please specify (Last Revision: May 2017) abnormal troponin ,sever protien - calorie def ,dysfagia,lower esophagus adenocarcinoma with bone mets normal syst. function probabl diast dysfunction MTDD
[2018-12-13 16:36] LABS: Glucose,Whole Blood 210 mg/dL (75-99)
[2018-12-13] MEDS: MORPHINE SULFATE 2 MG/ML SYRINGE IVP PRN (16:50)
--- NOTE | 2018-12-13 18:30 | PN ---
PROGRESS NOTE DATE OF SERVICE: 12/13/2018 DATA: 5 feet 9 inches height, weight 78.2 kg, BSA 1.94 m2, BMI 25.5 kg/m2. ALLERGY: Unknown. The patient is seen today [id number] and extended discussion with the and the patient as well in regarding the planning for the discharge home or to any other facility and the future planning for the chemotherapy. 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 The patient as he received 3 doses of 60 mg IV push of Solu-Medrol with the underlying supraadrenal gland suppression secondary to dexamethasone, which has been taken for more than 3 months. With that, his blood pressure picked up to 132/67 at 11:30 am he still needs the oxygen with his lungs. LABORATORY: Today indicating that his white count 9.6 with a hemoglobin 9.3 and hematocrit 27.0. His platelet count 133. He received 1 sitting of chemotherapy FOLFOX. He has underlying hyponatremia. He had as well underlying hyperkalemia and the sodium 129 and potassium 5.9, was elevated. His chloride 95 and carbon dioxide 26 and he has a BUN of 33, that could be associated with the 3 doses of the steroids, but renal function is stable more than 90. We understand the steroid will increase his blood sugar. However, it is covered with insulin. But his blood pressure was initially 81 systolic and with hypotensive and subsequently he is improved. We did examination as well. HEENT: The head was normocephalic, atraumatic and pupils equal, reactive. He has inability to eat and swallow with the underlying dysphagia. The neck was supple. No JVD. No thyromegaly. No lymphadenopathy. The chest was irrigated bilaterally with a history of a probability of nodules, possibility of metastasis as #1 or previous granulomatous disease and was seen by Dr. Reid Reed, the Critical Care. The heart he was admitted with elevated troponin. However, cardiology did evaluate him clinically and they stated that is from his cancer and metastasis. His renal function which is stable. Next is his sodium still in the low side and we gave him IV infusion for hydration and still which is sodium chloride with less than 12 hours since yesterday, but still his hyponatremic. His blood sugar was controlled. His blood sugar was covered with insulin and his blood sugar today 139. Calcium is 8.4. On the discussion, I did have a significant discussion today as well yesterday and apparently the Oncology did not respond to our request and we are asking the Oncology to clarify their plan of care as well are we going to continue the chemo or not and that will be also helpful to see what is the patient will need for rehabilitation or need for half-way or a need for as outpatient for hospice or palliative care. We did not have no response as well. They told me by the skilled nursing case manager as well as his nurse yesterday that today someone from the Oncology will come and discuss it with the patient and his as the requesting the Oncology to clarify what are they going to do and treatment and her and herself thinking that he will continue the chemotherapy as the patient is improving. We do not have any input from the Oncology to say do we stop at this time, or do we continue because of the disposition of the patient is very difficult. Due to the fact that half-way will not accept the patient if he is going to have chemo. #2 the rehab as inpatient rehab in [facility], we do not have the consultation response yet and if they will take him or not. Next question is if they take him, they allow the chemotherapy because we do not have any input from the Oncology and if they will allow the chemotherapy or they will not allow chemotherapy because it comes from [facility]. With these multiple questions, we have requested the Oncology. However, they have been not responding to us for the last few days and we have been repeating ourselves to make the disposition for the patient as we do not have any farther treatment to be continued except rehabilitation that he is currently getting in the hospital and we will not be keeping him forever in the hospital. I spoke yesterday with Susie OSULLIVAN and she spoke with the skilled nursing case manager and today is different group of nurses and I had to get the RN, that taking care of him today and to discuss with her the same discussion that we have been doing it every day and to see the response from the Oncology and response from different entity that involves in the care of the patient. Cardiology stated that they are fine with him and he can go. However, there is another problem that his stated that I could not take care of him at home. I do not know if the rehabilitation inpatient will be taking him or not, and because of the consultation not answered yet for evaluation as well as the oncology physician or the PA did not clarify our option for the patient and we have in the middle of the story now to see what else is needed for the patient. The patient insisted that he wants to continue the FULL CODE. I did discuss with him hospice. Discussed with him several modalities. But he still indicating that he wants to continue treatment and rehabilitation. ASSESSMENT: 1. 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 He has multiple nodules in the lung, however, could be granulomatous disease versus metastasis. PLAN: Still could not send the patient home as his said that she could not take care of him. We do not have the answer or the discussion or the extent of the treatment from the Oncology, Hematology. Actually his physician oncology is Dr. Olivarez and the first visit on and by Dr. Martin covering for Dr. Olivarez and Dr. Olivarez is treating the patient in [facility] and we do not have also from the nurse practitioners or the PAs that working with the group any input clarification to the patient and his requesting that oncology to tell her what she expects and what she should do and what is the help that she can get. JAROCHO / MINNIE: [id number] /
--- NOTE | 2018-12-13 18:46 | P.PN ---
Subjective Progress Note Date: 12/13/18 Principal diagnosis: Fluid overload, weakness In follow-up today patient states doing significantly better than on admission. He walked 100 feet in the hallway today. He does have some increased pain in the lower back where he had his surgery and radiation. He denies numbness or tingling, weakness in the legs, no incontinence of bowel or bladder. He is anxious and scared Objective - Vital Signs Vital signs: Vital Signs Temp 97.9 F 12/13/18 16:50 Pulse 94 12/13/18 16:50 Resp 16 12/13/18 16:50 BP 127/75 12/13/18 16:50 Pulse Ox 95 12/13/18 16:50 Intake & Output 12/12/18 12/13/18 12/13/18 18:59 06:59 18:59 Intake Total 990 252 Output Total 200 1400 900 Balance -200 -410 -648 Weight 77.2 kg 78.2 kg Intake: IV 30 30 Invasive Line 1 30 30 Oral 960 222 Output: Urine 200 1400 900 Other: Voiding Method Urinal Urinal # Voids 1 - Constitutional General appearance: Present: average body habitus, cooperative, mild distress - EENT Eyes: Present: anicteric sclerae, EOMI ENT: Present: hearing grossly normal - Respiratory Details: Respirations even and unlabored - Cardiovascular Details: skin warm and dry - Peripheral edema leg Peripheral Edema: bilateral: None - Neurologic Neurologic: Present: CNII-XII intact - Musculoskeletal Musculoskeletal: Present: generalized weakness - Psychiatric Psychiatric: Present: A&O x's 3, appropriate affect, intact judgment & insight - Labs CBC & Chem 7: 12/13/18 12:55 12/13/18 12:55 Labs: Abnormal Lab Results - Last 24 Hours (Table) 12/12/18 12/13/18 12/13/18 Range/Units 20:46 06:09 11:37 RBC (4.30-5.90) m/uL Hgb (13.0-17.5) gm/dL Hct (39.0-53.0) % RDW (11.5-15.5) % Plt Count (150-450) k/uL Neutrophils # (1.3-7.7) k/uL Lymphocytes # (1.0-4.8) k/uL Sodium (137-145) mmol/L Potassium (3.5-5.1) mmol/L Chloride (98-107) mmol/L BUN (9-20) mg/dL Glucose (74-99) mg/dL POC Glucose (mg/dL) 285 H 198 H 147 H (75-99) mg/dL 12/13/18 12/13/18 12/13/18 Range/Units 12:55 12:55 16:35 RBC 2.87 L (4.30-5.90) m/uL Hgb 9.3 L (13.0-17.5) gm/dL Hct 27.0 L (39.0-53.0) % RDW 16.7 H (11.5-15.5) % Plt Count 133 L (150-450) k/uL Neutrophils # 8.9 H (1.3-7.7) k/uL Lymphocytes # 0.2 L (1.0-4.8) k/uL Sodium 129 L (137-145) mmol/L Potassium 5.5 H (3.5-5.1) mmol/L Chloride 95 L (98-107) mmol/L BUN 33 H (9-20) mg/dL Glucose 139 H (74-99) mg/dL POC Glucose (mg/dL) 210 H (75-99) mg/dL Assessment and Plan (1) Esophageal cancer Narrative/Plan: Patient did receive nearly his complete first cycle of modified FOLFOX 6 (he received the IV portion, he did not get his CIVI pump for 46 hours). Patient is not due for next cycle for at least 10 days. I explained to patient and his that they need to focus on getting him stronger so that he can tolerate the treatment. A delay of a couple days is not a big deal. Having him in good shape so that he can tolerate treatment is the most important thing. They verbalized understanding. Next cycle will be given once pt has completed rehab Current Visit: Yes Status: Acute Priority: High Code(s): C15.9 - MALIGNANT NEOPLASM OF ESOPHAGUS, UNSPECIFIED SNOMED Code(s): 242075890 (2) Weakness Narrative/Plan: Agree with aggressive rehabilitation. Patient is very motivated to do the same. Chemotherapy will NOT be administered until patient has completed rehabilitation. He is not due for next cycle of treatment for 2 weeks, this should give him plenty time time to rehabilitate, he did ambulate today. Current Visit: Yes Status: Acute Priority: High Code(s): R53.1 - WEAKNESS SNOMED Code(s): 19464419 (3) Anxiety about health Narrative/Plan: Patient states previous relief from Valium 5 mg. Patient was prescribed Valium 5 mg by mouth twice a day. We will continue to monitor his anxiety. Also discussed prevention of constipation secondary to medications. He will continue stool softeners and request prune juice warm laxative when necessary. Current Visit: Yes Status: Acute Priority: High Code(s): F41.8 - OTHER SPECIFIED ANXIETY DISORDERS SNOMED Code(s): 154052527 Plan: Discussed with CM Discussed with RN Time with Patient: Greater than 30 (35 min spent, >50% time counseling and coordinating care)
[2018-12-13] MEDS: PRAVASTATIN SODIUM 20 MG TAB PO SCH (20:26)
[2018-12-13] MEDS: DIAZEPAM 5 MG TAB PO SCH (20:26)
[2018-12-13 21:29] LABS: Glucose,Whole Blood 179 mg/dL (75-99)
[2018-12-14] MEDS: MORPHINE SULFATE ER 30 MG TABLET PO SCH ×3 (03:02→17:37)
[2018-12-14 06:20] LABS: Glucose,Whole Blood 155 mg/dL (75-99)
[2018-12-14] MEDS: INSULIN ASPART (NovoLOG) 100 UNIT/ML VIAL SQ SCH ×4 (06:46→21:29)
[2018-12-14] MEDS: IPRATROPIUM-ALBUTEROL 3 ML NEB INHALATION SCH ×4 (08:11→19:51)
[2018-12-14] MEDS: TAMSULOSIN 0.4 MG CAP.ER.24H PO SCH ×2 (09:03→19:09)
[2018-12-14] MEDS: metFORMIN 500 MG TAB PO SCH ×2 (09:03→20:18)
[2018-12-14] MEDS: GABAPENTIN 300 MG CAP PO SCH ×3 (09:03→22:05)
[2018-12-14] MEDS: DOCUSATE 100 MG CAP PO SCH (09:03)
[2018-12-14] MEDS: LISINOPRIL 2.5 MG TAB PO SCH (09:03)
[2018-12-14] MEDS: QUEtiapine 50 MG TAB PO SCH ×2 (09:03→22:05)
[2018-12-14] MEDS: METOPROLOL SUCCINATE (ER) 25 MG TAB.ER.24H PO SCH (09:03)
[2018-12-14] MEDS: DIAZEPAM 5 MG TAB PO SCH ×2 (09:04→20:19)
[2018-12-14] MEDS: HEPARIN SODIUM,PORCINE 5,000 UNIT/ML 1 ML VIAL SQ SCH ×2 (09:04→20:19)
[2018-12-14] MEDS: FUROSEMIDE 40 MG TAB PO SCH (09:04)
[2018-12-14] MEDS: PANTOPRAZOLE 40 MG TABLET PO SCH (09:04)
[2018-12-14] MEDS: ASPIRIN 81 MG PO SCH (09:04)
[2018-12-14] MEDS: NYSTATIN 100,000 UNIT/ML SUSP 500,000 UNIT/5 ML CUP PO SCH ×4 (09:13→22:05)
--- NOTE | 2018-12-14 09:45 | P.PN ---
Subjective Progress Note Date: 12/14/18 This is a 68-year-old gentleman with history of metastatic esophageal cancer, status post chemo and radiation he presented to the hospital with symptoms of shortness of breath that. Patient was seen in consultation by Dr. Ye, admitted with diastolic congestive heart failure. Patient also had some mild abnormality in troponin, likely related to malignancy, not suggestive of acute coronary syndrome. Patient's weight today is down 3 kg, echocardiogram with Doppler study revealed an ejection fraction of 60-65%. Blood pressure running in the 80s systolic, patient is asymptomatic. His lisinopril will be given at noon daily. Labs from today are pending. 12/10/2018 Patient was seen and examined this morning, feeling much better overall. The lungs are clear. Weight is down today. Blood cell count 5.6, hemoglobin 8.9, platelet count 91. Sodium 128, potassium 4.8, BUN 34 and creatinine 0.6. 12/13/2018 Patient seen and examined this morning, blood pressure 113/60 with a heart rate in the 90s, 94% on 3 L of oxygen. 12/14/2018 Patient was seen and examined this morning, overall feeling much better. He actually had a good appetite and was able to eat some food this morning without any difficulty. Blood pressure 114/70 with a heart rate of 90, 96% on 3 L of oxygen. Objective - Vital Signs Vital signs: Vital Signs Temp 97.8 F 12/14/18 03:13 Pulse 94 12/14/18 03:13 Resp 18 12/14/18 03:13 BP 113/78 12/14/18 03:13 Pulse Ox 96 12/14/18 03:13 Intake & Output 12/13/18 12/14/18 12/14/18 18:59 06:59 18:59 Intake Total 252 10 720 Output Total 900 1600 Balance -648 -1590 720 Weight 78.2 kg 81.5 kg Intake: IV 30 10 Invasive Line 1 30 10 Oral 222 720 Output: Urine 900 1600 Other: Voiding Method Urinal Urinal - Exam PHYSICAL EXAMINATION: GENERAL: 68-year-old gentleman in no acute distress at time of my examination HEENT: Head is atraumatic, normocephalic. Pupils equal, round. Sclera ani cteric. Conjunctiva are clear. Mucous membranes of the mouth are moist. Neck is supple. There is no elevated jugular venous pressure. No carotid bruit is heard. HEART EXAMINATION: Heart S1, S2 normal. No murmur or gallop heard. CHEST EXAMINATION: Lungs are clear to auscultation and precussion. No chest wall tenderness is noted on palpation or with deep breathing. ABDOMEN: Soft, nontender. Bowel sounds are heard. No organomegaly noted. EXTREMITIES: 2+ peripheral pulses with 3+ bilateral peripheral edema and no calf tenderness noted. Significant edema in the left arm. NEUROLOGIC patient is awake, alert and oriented 3 . . - Labs CBC & Chem 7: 12/13/18 12:55 12/13/18 12:55 Labs: Abnormal Lab Results - Last 24 Hours (Table) 12/13/18 12/13/18 12/13/18 Range/Units 11:37 12:55 12:55 RBC 2.87 L (4.30-5.90) m/uL Hgb 9.3 L (13.0-17.5) gm/dL Hct 27.0 L (39.0-53.0) % RDW 16.7 H (11.5-15.5) % Plt Count 133 L (150-450) k/uL Neutrophils # 8.9 H (1.3-7.7) k/uL Lymphocytes # 0.2 L (1.0-4.8) k/uL Sodium 129 L (137-145) mmol/L Potassium 5.5 H (3.5-5.1) mmol/L Chloride 95 L (98-107) mmol/L BUN 33 H (9-20) mg/dL Glucose 139 H (74-99) mg/dL POC Glucose (mg/dL) 147 H (75-99) mg/dL 12/13/18 12/13/18 12/14/18 Range/Units 16:35 21:28 06:19 RBC (4.30-5.90) m/uL Hgb (13.0-17.5) gm/dL Hct (39.0-53.0) % RDW (11.5-15.5) % Plt Count (150-450) k/uL Neutrophils # (1.3-7.7) k/uL Lymphocytes # (1.0-4.8) k/uL Sodium (137-145) mmol/L Potassium (3.5-5.1) mmol/L Chloride (98-107) mmol/L BUN (9-20) mg/dL Glucose (74-99) mg/dL POC Glucose (mg/dL) 210 H 179 H 155 H (75-99) mg/dL Assessment and Plan Plan: Assessment and plan #1 diastolic congestive heart failure acute on chronic #2 abnormality in troponin, not consistent with acute coronary syndrome, likely secondary to malignancy. #3 metastatic esophageal cancer Plan From cardiology's perspective, patient is cleared for discharge or transfer to rehab. We'll make a follow-up appointment in the office post discharge. DNP note has been reviewed, I agree with a documented findings and plan of care. Patient was seen and examined.
[2018-12-14] MEDS: DEXAMETHASONE 2 MG TAB PO SCH ×3 (09:47→22:05)
[2018-12-14 12:08] LABS: Glucose,Whole Blood 182 mg/dL (75-99)
--- NOTE | 2018-12-14 13:35 | P.DS ---
Providers Date of admission: 12/07/18 20:00 Expected date of discharge: 12/14/18 Attending physician: Alo Arroyo Consults: 12/07/18 19:59 Consult Physician Routine Consulting Provider: Dave Maki Consult Reason/Comments: Cardiology evaluation and treatment Do you want consulting provider notified?: Yes 12/10/18 11:19 Consult Physician Routine Consulting Provider: Reid Reed Consult Reason/Comments: hemoptysis Do you want consulting provider notified?: Yes 12/10/18 15:05 Consult Physician Routine Consulting Provider: Ronni Jimenez Consult Reason/Comments: evaluate for inpatient rehab Do you want consulting provider notified?: Yes 12/11/18 14:03 Consult Physician Routine Consulting Provider: Jam Olivarez Consult Reason/Comments: stage 4 esphogeal ca Do you want consulting provider notified?: Yes Primary care physician: Alo Arroyo Review the discharge summary dictated on the 2018 Final diagnosis: #1 severe debility with inability to walk. #2 protein calorie deficiency severe with the hypoproteinemia hypoalbuminemia #3 dysphagia secondary to esophageal cancer adenocarcinoma. #4 metastasis to L4-L5 with decompressive laminectomy with walking disability. #5 pulmonary metastasis probability. #6 abnormal troponin, seen by cardiology indicating due to his cancer with metastasis. #7 severe pain in the low back secondary to metastatic disease on chronic pain medication was given initially by the oncology and medical [facility]/ganesh Castillo oncology. #8 past surgical history of abdominal aneurysm resected by 24 hours. #9 adrenal insufficiency with the hypotension recovered with doses of Solu-Medrol 60 mg IV push every 8 hours. On the rehab and probably will be going to [facility] inpatient rehab. Patient presentation to the ER: Severe debility and pain in the lower back and inability to ambulate as well as his could not take care of him. Found also his troponin was elevated. Hospital course: Patient seen several marketing database consultant, cardiology Dr. Quiroga cardiology Dr. spear oncology as well as SUDHA oncology reji Jack, Dr. Reid Reed. Pulmonary and critical care. Echocardiogram indicating ejection fraction 60-65% mild aortic valve sclerosis, mitral regurg, tricuspid regurg, right ventricular systolic pressure normal there is an 35, no evidence of pulmonary hypertension, moderate concentric left ventricular hypertrophy, Patient has several studies including bone scan and bone x-ray the knee and the heparin and the femur on the left sided which bothered him as well as computed tomography scan of the chest as well. Because of mild nutritional deficiency with dysphagia and cancer high metabolic rate nutritional support was given as well as PT and OT. As patient has received chemotherapy and subsequently sent to the ER because of generalized weakness we did ask the oncology for the plan future chemo. They indicate no [id number] patient improved with that he had been dictated and feeling better. Patient convinced that to be rehabilitated first and we will be sending him to [facility] for rehabilitation in inpatient rehab [facility]. Examination on discharge patient's conscious alert oriented 3 his temperature 97.8 pulse ox 96% on 3 L. Physical exam: Patient's conscious alert oriented he stated that he was able today to walk 100 feet by physical therapy. HEENT no change and able to eat soft diet Neck was supple no JVD no thyromegaly no lymphadenopathy. Chest was created by lateral and down he has underlying history of COPD and he getting inhalation therapy. And recent CT was suspicious of granulomatous disease versus metastasis. The heart: Regular sinus rhythm, seen by the cardiology and cleared down for discharge Abdomen soft positive bowel sounds no tenderness Extremities: No couldn't him improvement on his edema over the foot and ankle. Patient get intermittently leg muscle spasm. Neurologically no lateralizing sign. Assessment: Patient stable general condition to be discharged to rehabilitation in [facility] inpatient rehabilitation. Plan we'll be following the patient in the rehabilitation Center prescription was given to the nursing staff Amy. OSULLIVAN. Plan - Discharge Summary Discharge Rx Participant: Yes New Discharge Prescriptions: New Ipratropium-Albuterol Nebulize [Duoneb 0.5 mg-3 mg/3 ml Soln] 3 ml INHALATION RT-QID ampul.neb Tamsulosin [Flomax] 0.4 mg PO PC-SUPPER cap.er.24h Heparin Sodium,Porcine [Heparin Sodium] 5,000 unit SQ Q12HR vial Furosemide [Lasix] 20 mg PO DAILY #30 tab INSULIN ASPART (NovoLOG) [NovoLOG (formulary)] 0 unit SQ ACHS vial Metoprolol Succinate (ER) [Toprol XL] 25 mg PO DAILY #30 tab Calcium Carbonate [Tums] 500 mg PO TID PRN chew PRN Reason: Heartburn Ergocalciferol [Vitamin D2 (DRISDOL)] 50,000 unit PO Q7D cap Lisinopril [Zestril] 2.5 mg PO DAILY #30 tab Continue QUEtiapine [SEROquel] 50 mg PO BID Aspirin 81 mg PO DAILY metFORMIN HCL [Glucophage] 500 mg PO BID Gabapentin [Neurontin] 300 mg PO TID Pravastatin Sodium [Pravachol] 20 mg PO HS Morphine Sulfate ER [Ms Contin] 30 mg PO Q8H HYDROcodone/APAP 10-325MG [Dorothy 10-325] 1 tab PO Q6HR PRN PRN Reason: Pain Pantoprazole Sodium [Protonix] 40 mg PO DAILY Docusate [Colace] 100 mg PO DAILY Dexamethasone [Hexadrol] 2 mg PO TID Discontinued hydrALAZINE HCL [Apresoline] 50 mg PO TID Tamsulosin [Flomax] 0.4 mg PO BID Diltiazem HCl 30 mg PO Q8HR Discharge Medication List Aspirin 81 mg PO DAILY 08/11/18 [History] QUEtiapine [SEROquel] 50 mg PO BID 08/11/18 [History] metFORMIN HCL [Glucophage] 500 mg PO BID 08/11/18 [History] Docusate [Colace] 100 mg PO DAILY 11/25/18 [History] Gabapentin [Neurontin] 300 mg PO TID 11/25/18 [History] HYDROcodone/APAP 10-325MG [Dorothy 10-325] 1 tab PO Q6HR PRN 11/25/18 [History] Morphine Sulfate ER [Ms Contin] 30 mg PO Q8H 11/25/18 [History] Pantoprazole Sodium [Protonix] 40 mg PO DAILY 11/25/18 [History] Pravastatin Sodium [Pravachol] 20 mg PO HS 11/25/18 [History] Dexamethasone [Hexadrol] 2 mg PO TID 12/07/18 [History] Calcium Carbonate [Tums] 500 mg PO TID PRN chew 12/14/18 [Rx] Ergocalciferol [Vitamin D2 (DRISDOL)] 50,000 unit PO Q7D cap 12/14/18 [Rx] Furosemide [Lasix] 20 mg PO DAILY #30 tab 12/14/18 [Rx] Heparin Sodium,Porcine [Heparin Sodium] 5,000 unit SQ Q12HR vial 12/14/18 [Rx] INSULIN ASPART (NovoLOG) [NovoLOG (formulary)] 0 unit SQ ACHS vial 12/14/18 [Rx] Ipratropium-Albuterol Nebulize [Duoneb 0.5 mg-3 mg/3 ml Soln] 3 ml INHALATION RT-QID ampul.neb 12/14/18 [Rx] Lisinopril [Zestril] 2.5 mg PO DAILY #30 tab 12/14/18 [Rx] Metoprolol Succinate (ER) [Toprol XL] 25 mg PO DAILY #30 tab 12/14/18 [Rx] Tamsulosin [Flomax] 0.4 mg PO PC-SUPPER cap.er.24h 12/14/18 [Rx] Follow up Appointment(s)/Referral(s): Evans Ruiz MD [STAFF PHYSICIAN] - 12/28/18 4:15 pm (Thursday with WORKERS' COMPENSATION CLAIMS SUPERVISOR) [facility], [NON-STAFF] - 1-2 Days Reid Reed MD [STAFF PHYSICIAN] - 1 Week Alo Arroyo MD [Primary Care Provider] - 1-2 days Jam Olivarez MD [STAFF PHYSICIAN] - 1 Week Patient Instructions/Handouts: Heart Failure (DC), Heart Healthy Diet (DC) Activity/Diet/Wound Care/Special Instructions: CHF 1. Weigh yourself every morning after you urinate. If you gain 2-3 pounds overnight or 5 pounds in one week, call your primary physician for guidance on your medications. Keep a log of your weights. 2. Avoid salt, or foods with hidden salt. Extra salt makes your heart work harder and traps the fluid in your body for longer. 3. Take all of your medications as directed, especially your water pills. NEVER skip a dose. 4. Elevate your legs when you are not up moving around to help with circulation and prevent swelling. 5. Call your physician if you notice any extra swelling in your legs, ankles, feet or abdomen, if you have a new dry cough, if your shortness of breath worsens with activity or at rest, or if you feel more fatigued. Discharge Disposition: TRANSFER TO SNF/ECF
--- NOTE | 2018-12-14 14:23 | P.PN ---
Subjective Progress Note Date: 12/14/18 Principal diagnosis: Multiple bilateral pulmonary nodules suggest present of metastatic disease Shortness of breath due to multifactorial origin Small left pleural effusion Esophageal cancer Acute on chronic diastolic heart failure Generalized weakness and medical debility Severe COPD emphysema 12/14/2018, patient seen eval examined during the rounds labs reviewed medica tions reviewed care plan discussed with the patient at length, he is being prepared for discharge to rehab followed by chemotherapy once we have is completed his shortness of breath is stable does complaining of generalized fatigue and weakness denies any chest pain cough or sputum production 12/13/2018, patient seen eval reexamined during the rounds care plan discussed with patient and present at the bedside at length, updated about computed tomography scan finding, patient is being considered for placement in rehab with the intent to give palliative chemotherapy over there he is stable in terms of shortness of breath complain of generalized weakness denies any cough or sputum production 12/12/2018, patient seen eval examined during the rounds he is sitting upright on the bed he is slightly short of breath he choked food particle earlier this morning, however denies similar occurrence in the past, denies any chest pain still of ongoing shortness of breath but severity has improved 12/11/2018, patient seen eval examined during the rounds labs reviewed medications reviewed computed tomography scan of the chest reviewed there irregular subcentimeter nodules were seen bilaterally however multiple nodule they were seen in the chest x-ray are more of a calcified nodule suggestive of old prior recurrent pneumonitis disease, calcified lymph node prominence is seen as well will follow this patient closely with serial computed tomography scan no aggressive intervention like biopsy has been recommended monitor closely patient to be started on chemotherapy as planned once clinically stable and performance status improved This is a 68-year-old male with the prior medical history of stage IV esophageal cancer presenting to the emergency department shortness of breath. Patient has been in and out of the hospital recently. Patient has had dyspnea over the past couple of weeks, worse the past few days. Patient also noted progressive generalized weakness was in fact admitted at [facility] with congestive heart failure patient just has been initiated on chemotherapy I believe first cycle was terminated due to health status however patient was attempted to undergo chemotherapy again and postponed due to generalized progressive weakness and breathing difficulties, bone scan has been unremarkable chest x-ray revealed bilateral small nodular densities multiple possibility of metastatic disease cannot be excluded, echocardiogram revealed ejection fraction of 60%, no evidence of pulmonary hypertension Objective - Vital Signs Vital signs: Vital Signs Temp 97.8 F 12/14/18 03:13 Pulse 92 12/14/18 11:18 Resp 18 12/14/18 03:13 BP 113/78 12/14/18 03:13 Pulse Ox 96 12/14/18 03:13 Intake & Output 12/13/18 12/14/18 12/14/18 18:59 06:59 18:59 Intake Total 252 10 720 Output Total 900 1600 750 Balance -648 -1590 -30 Weight 78.2 kg 81.5 kg Intake: IV 30 10 Invasive Line 1 30 10 Oral 222 720 Output: Urine 900 1600 750 Other: Voiding Method Urinal Urinal - Exam - Constitutional General appearance: average body habitus, cooperative, disheveled, mild distress - EENT Eyes: EOMI, PERRLA, poor dentition ENT: normal oropharynx Ears: bilateral: normal - Neck Neck: normal ROM Carotids: bilateral: upstroke normal Thyroid: bilateral: normal size - Respiratory Respiratory: bilateral: diminished, rales (Fine bilateral), negative: CTA, rhonchi, wheezing, prolonged expiration, prolonged inspiration - Cardiovascular Rhythm: regular Heart sounds: normal: S1, S2 - Gastrointestinal General gastrointestinal: distended - Integumentary Integumentary: normal turgor - Neurologic Neurologic: CNII-XII intact - Musculoskeletal Musculoskeletal: gait normal, generalized weakness, strength equal bilaterally - Psychiatric Psychiatric: A&O x's 3, appropriate affect, intact judgm - Labs CBC & Chem 7: 12/13/18 12:55 12/13/18 12:55 Labs: Abnormal Lab Results - Last 24 Hours (Table) 12/13/18 12/13/18 12/14/18 Range/Units 16:35 21:28 06:19 POC Glucose (mg/dL) 210 H 179 H 155 H (75-99) mg/dL 12/14/18 Range/Units 12:00 POC Glucose (mg/dL) 182 H (75-99) mg/dL Assessment and Plan Assessment: Multiple bilateral pulmonary nodules may suggest present of metastatic disease, however most of the nodules are calcified suggestive of the prior granulomatous disease, few subsegment subcentimeter bilateral nodules of unclear significance is seen we will consider PET scan as outpatient, agree with a rehab placement and palliative chemotherapy is planned Shortness of breath due to multifactorial origin Small left pleural effusion Esophageal cancer Acute on chronic diastolic heart failure Generalized weakness and medical debility Severe COPD emphysema Plan: Continue gentle diuresis Bronchodilators Hold on IV steroids Computed tomography scan of the chest without any contrast for lung nodules rev iewed with findings as noted above, finding discussed with patient and patient's at length Further recommendations pending plan of care as per clinical response of patient Chemotherapy to be initiated once performance level has improved Time with Patient: Greater than 30
[2018-12-14 16:35] LABS: Glucose,Whole Blood 133 mg/dL (75-99)
[2018-12-14] MEDS: PRAVASTATIN SODIUM 20 MG TAB PO SCH (20:18)
[2018-12-14 21:02] LABS: Glucose,Whole Blood 158 mg/dL (75-99)
[2018-12-15] MEDS: MORPHINE SULFATE ER 30 MG TABLET PO SCH ×3 (03:17→17:30)
[2018-12-15 06:10] LABS: Glucose,Whole Blood 148 mg/dL (75-99)
[2018-12-15] MEDS: INSULIN ASPART (NovoLOG) 100 UNIT/ML VIAL SQ SCH ×4 (06:35→20:49)
[2018-12-15 07:23] LABS: Anisocytosis Slight; HCT 25.7 % (39.0-53.0); MCH 32.6 pg (25.0-35.0); MCHC 34.9 g/dL (31.0-37.0); MCV 93.4 fL (80.0-100.0); Mean Platelet Volume 6.9; Platelet Count 120 k/uL (150-450); RBC 2.75 m/uL (4.30-5.90); RDW 17.7 % (11.5-15.5); WBC 8.5 k/uL (3.8-10.6)
[2018-12-15 07:38] LABS: African American GFR (CKD) >90 (>60 ml/min/1.73 sqM); Anion Gap 8 mmol/L; Blood Urea Nitrogen 31 mg/dL (9-20); Calcium 8.3 mg/dL (8.4-10.2); Carbon Dioxide 28 mmol/L (22-30); Chloride 93 mmol/L (98-107); Glucose 127 mg/dL (74-99); Sodium 129 mmol/L (137-145)
[2018-12-15] MEDS: IPRATROPIUM-ALBUTEROL 3 ML NEB INHALATION SCH ×4 (08:06→20:01)
[2018-12-15] MEDS: METOPROLOL SUCCINATE (ER) 25 MG TAB.ER.24H PO SCH (08:33)
[2018-12-15] MEDS: QUEtiapine 50 MG TAB PO SCH ×2 (08:33→22:07)
[2018-12-15] MEDS: DOCUSATE 100 MG CAP PO SCH (08:33)
[2018-12-15] MEDS: GABAPENTIN 300 MG CAP PO SCH ×3 (08:33→22:12)
[2018-12-15] MEDS: FUROSEMIDE 40 MG TAB PO SCH (08:34)
[2018-12-15] MEDS: DEXAMETHASONE 2 MG TAB PO SCH ×3 (08:34→22:08)
[2018-12-15] MEDS: metFORMIN 500 MG TAB PO SCH ×2 (08:34→22:07)
[2018-12-15] MEDS: ASPIRIN 81 MG PO SCH (08:35)
[2018-12-15] MEDS: HEPARIN SODIUM,PORCINE 5,000 UNIT/ML 1 ML VIAL SQ SCH ×2 (08:35→22:09)
[2018-12-15] MEDS: NYSTATIN 100,000 UNIT/ML SUSP 500,000 UNIT/5 ML CUP PO SCH ×4 (08:35→22:07)
[2018-12-15] MEDS: DIAZEPAM 5 MG TAB PO SCH ×2 (08:35→22:06)
[2018-12-15] MEDS: LISINOPRIL 2.5 MG TAB PO SCH (08:35)
[2018-12-15] MEDS: PANTOPRAZOLE 40 MG TABLET PO SCH (08:37)
[2018-12-15 12:10] LABS: Glucose,Whole Blood 193 mg/dL (75-99)
[2018-12-15] MEDS: HYDROcodone/APAP 10-325MG 1 EACH TAB PO PRN (12:10)
--- NOTE | 2018-12-15 14:28 | P.PN ---
Subjective Progress Note Date: 12/15/18 This is a 68-year-old gentleman with history of metastatic esophageal cancer, status post chemo and radiation he presented to the hospital with symptoms of shortness of breath that. Patient was seen in consultation by Dr. Ye, admitted with diastolic congestive heart failure. Patient also had some mild abnormality in troponin, likely related to malignancy, not suggestive of acute coronary syndrome. Patient's weight today is down 3 kg, echocardiogram with Doppler study revealed an ejection fraction of 60-65%. Blood pressure running in the 80s systolic, patient is asymptomatic. His lisinopril will be given at noon daily. Labs from today are pending. 12/10/2018 Patient was seen and examined this morning, feeling much better overall. The lungs are clear. Weight is down today. Blood cell count 5.6, hemoglobin 8.9, platelet count 91. Sodium 128, potassium 4.8, BUN 34 and creatinine 0.6. 12/13/2018 Patient seen and examined this morning, blood pressure 113/60 with a heart rate in the 90s, 94% on 3 L of oxygen. 12/14/2018 Patient was seen and examined this morning, overall feeling much better. He actually had a good appetite and was able to eat some food this morning without any difficulty. Blood pressure 114/70 with a heart rate of 90, 96% on 3 L of oxygen. 12/15/2018 Patient seen and examined this morning, hemodynamically stable, waiting transfer to [facility] rehab today. Objective - Vital Signs Vital signs: Vital Signs Temp 98.0 F 12/15/18 12:00 Pulse 108 H 12/15/18 12:00 Resp 16 12/15/18 12:00 BP 145/63 12/15/18 12:00 Pulse Ox 99 12/15/18 12:00 Intake & Output 12/14/18 12/15/18 12/15/18 18:59 06:59 18:59 Intake Total 1200 680 Output Total 1600 400 450 Balance -400 -400 230 Weight 81 kg Intake: Oral 1200 680 Output: Urine 1600 400 450 Other: Voiding Method Urinal Urinal Urinal - Exam PHYSICAL EXAMINATION: GENERAL: 68-year-old gentleman in no acute distress at time of my examination HEENT: Head is atraumatic, normocephalic. Pupils equal, round. Sclera anicteric. Conjunctiva are clear. Mucous membranes of the mouth are moist. Neck is supple. There is no elevated jugular venous pressure. No carotid bruit is heard. HEART EXAMINATION: Heart S1, S2 normal. No murmur or gallop heard. CHEST EXAMINATION: Lungs are clear to auscultation and precussion. No chest wall tenderness is noted on palpation or with deep breathing. ABDOMEN: Soft, nontender. Bowel sounds are heard. No organomegaly noted. EXTREMITIES: 2+ peripheral pulses with 3+ bilateral peripheral edema and no calf tenderness noted. Significant edema in the left arm. NEUROLOGIC patient is awake, alert and oriented 3 . . - Labs CBC & Chem 7: 12/15/18 06:20 12/15/18 06:20 Labs: Abnormal Lab Results - Last 24 Hours (Table) 12/14/18 12/14/18 12/15/18 Range/Units 16:31 21:01 06:08 RBC (4.30-5.90) m/uL Hgb (13.0-17.5) gm/dL Hct (39.0-53.0) % RDW (11.5-15.5) % Plt Count (150-450) k/uL Sodium (137-145) mmol/L Chloride (98-107) mmol/L BUN (9-20) mg/dL Glucose (74-99) mg/dL POC Glucose (mg/dL) 133 H 158 H 148 H (75-99) mg/dL Calcium (8.4-10.2) mg/dL 12/15/18 12/15/18 12/15/18 Range/Units 06:20 06:20 11:58 RBC 2.75 L (4.30-5.90) m/uL Hgb 9.0 L (13.0-17.5) gm/dL Hct 25.7 L (39.0-53.0) % RDW 17.7 H (11.5-15.5) % Plt Count 120 L (150-450) k/uL Sodium 129 L (137-145) mmol/L Chloride 93 L (98-107) mmol/L BUN 31 H (9-20) mg/dL Glucose 127 H (74-99) mg/dL POC Glucose (mg/dL) 193 H (75-99) mg/dL Calcium 8.3 L (8.4-10.2) mg/dL Assessment and Plan Plan: Assessment and plan #1 diastolic congestive heart failure acute on chronic #2 abnormality in troponin, not consistent with acute coronary syndrome, likely secondary to malignancy. #3 metastatic esophageal cancer Plan From cardiology's perspective, patient is cleared for discharge or transfer to rehab. We'll make a follow-up appointment in the office post discharge. DNP note has been reviewed, I agree with a documented findings and plan of care. Patient was seen and examined.
--- NOTE | 2018-12-15 15:35 | P.PN ---
Subjective Progress Note Date: 12/15/18 Principal diagnosis: Diagnosis: #1 status post chemotherapy first infusion and was more [facility]. #2 generalized weakness, volume overload, left lower extremity spasm with pain. #3 x-rays of the left lower extremities and the bone scan to rule out metastasis was negative. #4 decompression of the low back with laminectomy and kyphoplasty , with a adenocarcinoma of the lower esophagus. By endoscopy and biopsy at [facility]. #5 dysphagia secondary to lower esophageal cancer, #6 moderate to severe protein calorie deficiency with the associated edema secondary to hypoproteinemia. #7 hyponatremia with dilutional effect. #8 abnormal troponin 3, cardiology indicating related to the cancer. #9 anemia secondary to chronic disease and cancer. #10 COPD, history of pulmonary fibrosis, lost night he had hemoptysis. Progress note date of service 12/15/2018. Patient discharged yesterday to rehab facility inpatient, patient unfortunately did not have the acceptance, canvas worker ordered the nursing staff did not call me that the patient stayed in the hospital, so I don't miss the patient in around, luckily I came to read the EKG and found that the patient still in the hospital. I did discuss it with the canvas worker Cristi and the administrative nurse as well that most to be away today to notify the physician attending with the co ntinuing patient in the hospital for continuing care. Patient seen and evaluated discussed with the patient and his . Complain of left flank pain and he thought that may have a stone. And he also flexing his left knee with a history of decompressive laminectomy which found to be malignant deposits from esophageal adenocarcinoma. I did send the patient for ultrasound of the kidney bladder and ureter stent as well as obtaining the bladder scan to rule out any retention. This patient seen today I discussed the discharge planning with the canvas worker and he indicating that probably he won't go home because of difficult placement in a different organization according to his insurance. His vital sign indicating temperature 90.8 F oral his heart rate ranging between 94-108 and his respiratory rate 16 and blood pressure 145/63. Pulse ox 99 on 3 L nasal cannula. Laboratories: White count 8.5 and hemoglobin 9 with a hematocrit 25.7 with the underlying anemia of chronic disease and cancer with metastasis. Platelet count 120, no evidence of bleeding from oral or through bowel movement. He has hyponatremia mild associated with the antipsychotic medication. And diuretics. Renal function is stable with the estimated glomerular filtration rate for non- more than 90. Diabetes mellitus has been monitored and ranging between the [id number] and he is covered with insulin. His fasting blood sugar was 127. And his calcium has been 8.48.3 however on 12/12/2018 calcium 7.7. Which indicating improvement and vitamin D 25-hydroxy was low at 15.4. On examination patient is conscious alert lethargic and appeared to be ill with the underlying metastatic adenocarcinoma of the lower esophagus with dysphagia and protein calorie deficiency, nutritional support has been following the patient. HEENT was negative, neck was supple no lymphadenopathy. Chest was mild hypoxemia with oxygen and able to [place] with the underlying bilateral rhonchi's the computed tomography scan of the chest was indicating granulomatous disease versus pulmonary be diastasis. Heart regular sinus rhythm. The abdomen soft distended positive bowel sounds and complain of left flank pain and flexion of his left knee from the pain with the possibility of kidney stone suspicious however no recent urine analysis and will be sending urine analysis as well and also bladder scan as well as ultrasound of the kidney bladder and ureter. Extremities he have left lower extremities radiculopathy with the lower back surgery on the left side with decompression laminectomy. Neurologically: Patient lethargic. He also had history of abdominal aortic aneurysm and was treated in . Assessment: #1 left flank pain #2 flexion of the left knee from pain and radiculopathy. #3 patient continue to have rehab inpatient. #4 waiting for disposition to rehabilitation and [facility] or medical [facility] [place] however the certification has been prolonged process and obstructed his discharge yesterday by the canvas worker. Plan: Obtain ultrasound of the kidney bladder and ureter, obtain bladder scan and ord er for communication to to the nursing staff to date me know how much bladder retention of urine post void all. Also planning for continuing the process of physical therapy and discharged to physical rehabilitation as his unable to take care of him at home. He continuing the current medication and the continuing the monitoring of the glucose and diabetes. Objective - Vital Signs Vital signs: Vital Signs Temp 98.0 F 12/15/18 12:00 Pulse 108 H 12/15/18 12:00 Resp 16 12/15/18 12:00 BP 145/63 12/15/18 12:00 Pulse Ox 99 12/15/18 12:00 Intake & Output 12/14/18 12/15/18 12/15/18 18:59 06:59 18:59 Intake Total 1200 680 Output Total 1600 400 450 Balance -400 -400 230 Weight 81 kg Intake: Oral 1200 680 Output: Urine 1600 400 450 Other: Voiding Method Urinal Urinal Urinal - Labs CBC & Chem 7: 12/15/18 06:20 12/15/18 06:20 Labs: Abnormal Lab Results - Last 24 Hours (Table) 12/14/18 12/14/18 12/15/18 Range/Units 16:31 21:01 06:08 RBC (4.30-5.90) m/uL Hgb (13.0-17.5) gm/dL Hct (39.0-53.0) % RDW (11.5-15.5) % Plt Count (150-450) k/uL Sodium (137-145) mmol/L Chloride (98-107) mmol/L BUN (9-20) mg/dL Glucose (74-99) mg/dL POC Glucose (mg/dL) 133 H 158 H 148 H (75-99) mg/dL Calcium (8.4-10.2) mg/dL 12/15/18 12/15/18 12/15/18 Range/Units 06:20 06:20 11:58 RBC 2.75 L (4.30-5.90) m/uL Hgb 9.0 L (13.0-17.5) gm/dL Hct 25.7 L (39.0-53.0) % RDW 17.7 H (11.5-15.5) % Plt Count 120 L (150-450) k/uL Sodium 129 L (137-145) mmol/L Chloride 93 L (98-107) mmol/L BUN 31 H (9-20) mg/dL Glucose 127 H (74-99) mg/dL POC Glucose (mg/dL) 193 H (75-99) mg/dL Calcium 8.3 L (8.4-10.2) mg/dL
--- NOTE | 2018-12-15 15:52 | US ---
EXAMINATION TYPE: US kidneys/renal and bladder DATE OF EXAM: 12/15/2018 COMPARISON: NONE CLINICAL HISTORY: Flank pain, rule out nephrolithiasis. Left flank pain EXAM MEASUREMENTS: Right Kidney: 9.8 x 4.1 x 4.7 cm Left Kidney: 10.6 x 5.4 x 4.8 cm Right Kidney: No hydronephrosis or masses seen Left Kidney: No hydronephrosis or masses seen Bladder: distended, anechoic Bilateral Jets not seen There is no evidence for hydronephrosis at this point in time. No nephrolithiasis is seen. No andria s are identified. The urinary bladder is anechoic. Bilateral ureteral jets are seen. IMPRESSION: Unremarkable abdominal ultrasound. No hydronephrosis or nephrolithiasis.
[2018-12-15] MEDS ORDERED: MORPHINE SULFATE 10 MG/ML 1ML VIAL IVP PRN (16:55)
[2018-12-15 17:04] LABS: Glucose,Whole Blood 114 mg/dL (75-99)
[2018-12-15] MEDS ORDERED: MORPHINE SULFATE 4 MG/ML SYRINGE IVP PRN ×2 (17:22→19:03)
[2018-12-15] MEDS: TAMSULOSIN 0.4 MG CAP.ER.24H PO SCH (17:30)
--- NOTE | 2018-12-15 17:43 | P.PN ---
Subjective Progress Note Date: 12/15/18 Principal diagnosis: Fluid overload, weakness In follow-up today patient is mildly confused, slow to respond, significantly weaker than yesterday, patient is barely able to adjust his own body weight in bed. He is complaining of increased pain and he has right side as well as s davidulder Objective - Vital Signs Vital signs: Vital Signs Temp 98.0 F 12/15/18 12:00 Pulse 93 12/15/18 16:03 Resp 16 12/15/18 12:00 BP 145/63 12/15/18 12:00 Pulse Ox 99 12/15/18 12:00 Intake & Output 12/14/18 12/15/18 12/15/18 18:59 06:59 18:59 Intake Total 1200 680 Output Total 1600 400 450 Balance -400 -400 230 Weight 81 kg Intake: Oral 1200 680 Output: Urine 1600 400 450 Other: Voiding Method Urinal Urinal Urinal - Constitutional General appearance: Present: cooperative, no acute distress, thin - EENT Eyes: Present: anicteric sclerae, EOMI ENT: Present: hearing grossly normal - Respiratory Respiratory: right: rhonchi (lower lobe), bilateral: wheezing (anterior chest) - Cardiovascular Heart sounds: normal: S1, S2 - Peripheral edema leg Peripheral Edema: bilateral: None - Gastrointestinal General gastrointestinal: Present: normal bowel sounds, soft - Integumentary Integumentary: Present: pale - Neurologic Neurologic Comment(s): symmetrical facial expressions - Musculoskeletal Musculoskeletal Comment(s): bilateral hand grasps 5/5, equal bilaterally. BLE 3/5 knee extension Pain with palpation of right ribs Soft tissue masses of the left forearm and posterior superior to elbow - Psychiatric Psychiatric Comment(s): Lethargic, oriented to self, place Psychiatric: Absent: intact judgment & insight - Labs CBC & Chem 7: 12/15/18 06:20 12/15/18 06:20 Labs: Abnormal Lab Results - Last 24 Hours (Table) 12/14/18 12/15/18 12/15/18 Range/Units 21:01 06:08 06:20 RBC 2.75 L (4.30-5.90) m/uL Hgb 9.0 L (13.0-17.5) gm/dL Hct 25.7 L (39.0-53.0) % RDW 17.7 H (11.5-15.5) % Plt Count 120 L (150-450) k/uL Sodium (137-145) mmol/L Chloride (98-107) mmol/L BUN (9-20) mg/dL Glucose (74-99) mg/dL POC Glucose (mg/dL) 158 H 148 H (75-99) mg/dL Calcium (8.4-10.2) mg/dL 12/15/18 12/15/18 12/15/18 Range/Units 06:20 11:58 16:30 RBC (4.30-5.90) m/uL Hgb (13.0-17.5) gm/dL Hct (39.0-53.0) % RDW (11.5-15.5) % Plt Count (150-450) k/uL Sodium 129 L (137-145) mmol/L Chloride 93 L (98-107) mmol/L BUN 31 H (9-20) mg/dL Glucose 127 H (74-99) mg/dL POC Glucose (mg/dL) 193 H 114 H (75-99) mg/dL Calcium 8.3 L (8.4-10.2) mg/dL Assessment and Plan (1) AMS (altered mental status) Narrative/Plan: Due to patient's acute change in mental status MRI of the brain has been ordered. Current Visit: Yes Status: Acute Priority: High Code(s): R41.82 - ALTERED MENTAL STATUS, UNSPECIFIED SNOMED Code(s): 683832557 (2) Pain of metastatic malignancy Narrative/Plan: Pain medications adjusted. Meds for constipation verified Case discussed with Radiation Oncologist and consult placed for them to evaluate and see if radiation could help with. Current Visit: Yes Status: Acute Priority: High Code(s): G89.3 - NEOPLASM RELATED PAIN (ACUTE) (CHRONIC) SNOMED Code(s): 325738383 (3) Weakness Narrative/Plan: Patient condition today is completely different than yesterday. Patient is barely able to move his own body weight. He did not work with physical therapy today. Patient is going to be worked up for the same. We will continue with PT/OT for now. We'll have to see how patient progresses to see if he can make it to inpatient rehabilitation Current Visit: Yes Status: Acute Priority: High Code(s): R53.1 - WEAKNESS SNOMED Code(s): 89795618 (4) Esophageal cancer Narrative/Plan: Patient did receive nearly his complete first cycle of modified FOLFOX 6 (he received the IV portion, he did not get his CIVI pump for 46 hours). Patient is not due for next cycle for at least 10 days. I explained to patient and his that they need to focus on getting him stronger so that he can tolerate the treatment. A delay of a couple days to complete rehab was not considered a huge set back but,acute changes in his PS today may be problematic. Reviewed concerns with . Med changes, MRI brain and Rad Onc eval pending. Further recommendations to follow. They verbalized understanding. Current Visit: Yes Status: Acute Priority: High Code(s): C15.9 - MALIGNANT NEOPLASM OF ESOPHAGUS, UNSPECIFIED SNOMED Code(s): 063754054 (5) Anxiety about health Narrative/Plan: Patient states previous relief from Valium 5 mg. Patient was prescribed Valium 5 mg by mouth twice a day. Anxiety improved. Current Visit: Yes Status: Acute Priority: High Code(s): F41.8 - OTHER SPECIFIED ANXIETY DISORDERS SNOMED Code(s): 673168651
[2018-12-15 20:48] LABS: Glucose,Whole Blood 134 mg/dL (75-99)
[2018-12-15] MEDS: SENNOSIDES-DOCUSATE SODIUM 1 EACH TAB PO SCH (22:07)
[2018-12-15] MEDS: PRAVASTATIN SODIUM 20 MG TAB PO SCH (22:07)
[2018-12-15] MEDS: IPRATROPIUM-ALBUTEROL 3 ML NEB INHALATION PRN (23:47)
[2018-12-16] MEDS ORDERED: SODIUM CHLORIDE 0.9% 300 ML IV ONE (00:24)
[2018-12-16] MEDS ORDERED: methylPREDNISolone SOD SUCCI 125 MG/2 ML VIAL IV SCH (00:30)
[2018-12-16] MEDS ORDERED: SODIUM CHLORIDE 0.9% 1,000 ML IV ONE (00:56)
[2018-12-16] MEDS: MORPHINE SULFATE ER 30 MG TABLET PO SCH ×3 (03:38→18:18)
[2018-12-16] MEDS: IPRATROPIUM-ALBUTEROL 3 ML NEB INHALATION PRN ×4 (04:15→20:43)
[2018-12-16 06:08] LABS: Glucose,Whole Blood 152 mg/dL (75-99)
[2018-12-16 06:14] LABS: Anisocytosis Slight; HCT 23.9 % (39.0-53.0); HGB 8.2 gm/dL (13.0-17.5); MCH 32.7 pg (25.0-35.0); MCHC 34.4 g/dL (31.0-37.0); MCV 95.1 fL (80.0-100.0); Macrocytosis Slight; Mean Platelet Volume 6.4; Platelet Count 100 k/uL (150-450); RBC 2.52 m/uL (4.30-5.90); RDW 18.2 % (11.5-15.5); WBC 8.5 k/uL (3.8-10.6)
[2018-12-16 06:19] LABS: African American GFR (CKD) >90 (>60 ml/min/1.73 sqM); Anion Gap 4 mmol/L; Blood Urea Nitrogen 39 mg/dL (9-20); Calcium 7.8 mg/dL (8.4-10.2); Carbon Dioxide 28 mmol/L (22-30); Chloride 95 mmol/L (98-107); Glucose 132 mg/dL (74-99); Sodium 127 mmol/L (137-145)
[2018-12-16] MEDS: INSULIN ASPART (NovoLOG) 100 UNIT/ML VIAL SQ SCH ×5 (06:33→21:07)
[2018-12-16] MEDS: SODIUM CHLORIDE 0.9% 1,000 ML IV SCH ×2 (06:38→16:28)
[2018-12-16] MEDS: IPRATROPIUM-ALBUTEROL 3 ML NEB INHALATION SCH (08:32)
--- NOTE | 2018-12-16 08:33 | P.PN ---
Subjective Progress Note Date: 12/16/18 Principal diagnosis: Multiple bilateral pulmonary nodules suggest present of metastatic disease Shortness of breath due to multifactorial origin Small left pleural effusion Esophageal cancer Acute on chronic diastolic heart failure Generalized weakness and medical debility Severe COPD emphysema 12/16/2018, patient seen eval examined during the rounds patient had a episode in which he was weak slightly confused noted that blood pressure drop down into 70s he got 300 fluid of crystalloid bolus followed by IV Solu-Cortef, cortisol level is pending labs are pending blood and urine cultures have been ordered, likely episode is related to intravascular volume depletion and dehydration but a possible associated sepsis cannot be excluded, hemodynamic slightly better patient is passing urine blood pressure last check systolic was 100, white cell count 8500 hemoglobin is 8.2 sodium is 127 potassium is 5 BUN is 39 creatinine 0.9 to, patient is on maintenance IV fluids, critical care time spent 35 minutes 12/14/2018, patient seen eval examined during the rounds labs reviewed medications reviewed care plan discussed with the patient at length, he is being prepared for discharge to rehab followed by chemotherapy once we have is completed his shortness of breath is stable does complaining of generalized fatigue and weakness denies any chest pain cough or sputum production 12/13/2018, patient seen eval reexamined during the rounds care plan discussed with patient and present at the bedside at length, updated about computed tomography scan finding, patient is being considered for placement in rehab with the intent to give palliative chemotherapy over there he is stable in terms of shortness of breath complain of generalized weakness denies any cough or sputum production 12/12/2018, patient seen eval examined during the rounds he is sitting upright on the bed he is slightly short of breath he choked food particle earlier this morning, however denies similar occurrence in the past, denies any chest pain still of ongoing shortness of breath but severity has improved 12/11/2018, patient seen eval examined during the rounds labs reviewed medications reviewed computed tomography scan of the chest reviewed there irregular subcentimeter nodules were seen bilaterally however multiple nodule they were seen in the chest x-ray are more of a calcified nodule suggestive of old prior recurrent pneumonitis disease, calcified lymph node prominence is seen as well will follow this patient closely with serial computed tomography scan no aggressive intervention like biopsy has been recommended monitor closely patient to be started on chemotherapy as planned once clinically stable and performance status improved This is a 68-year-old male with the prior medical history of stage IV esophageal cancer presenting to the emergency department shortness of breath. Patient has been in and out of the hospital recently. Patient has had dyspnea over the past couple of weeks, worse the past few days. Patient also noted progressive generalized weakness was in fact admitted at [facility] with congestive heart failure patient just has been initiated on chemotherapy I believe first cycle was terminated due to health status however patient was attempted to undergo chemotherapy again and postponed due to generalized progressive weakness and breathing difficulties, bone scan has been unremarkable chest x-ray revealed bilateral small nodular densities multiple possibility of metastatic disease cannot be excluded, echocardiogram revealed ejection fraction of 60%, no evidence of pulmonary hypertension Objective - Vital Signs Vital signs: Vital Signs Temp 97.8 F 12/16/18 08:00 Pulse 101 H 12/16/18 08:00 Resp 18 12/16/18 08:00 BP 99/64 12/16/18 08:00 Pulse Ox 97 12/16/18 08:00 Intake & Output 12/15/18 12/16/18 12/16/18 18:59 06:59 18:59 Intake Total 680 Output Total 450 1450 Balance 230 -1450 Weight 79.3 kg Intake: Oral 680 Output: Urine 450 1450 Other: Voiding Method Urinal Urinal # Voids 2 - Exam - Constitutional General appearance: average body habitus, cooperative, disheveled, mild distress - EENT Eyes: EOMI, PERRLA, poor dentition ENT: normal oropharynx Ears: bilateral: normal - Neck Neck: normal ROM Carotids: bilateral: upstroke normal Thyroid: bilateral: normal size - Respiratory Respiratory: bilateral: diminished, rales (Fine bilateral), negative: CTA, rhonchi, wheezing, prolonged expiration, prolonged inspiration - Cardiovascular Rhythm: regular Heart sounds: normal: S1, S2 - Gastrointestinal General gastrointestinal: distended - Integumentary Integumentary: normal turgor - Neurologic Neurologic: CNII-XII intact - Musculoskeletal Musculoskeletal: gait normal, generalized weakness, strength equal bilaterally - Psychiatric Psychiatric: A&O x's 3, appropriate affect, intact judgm - Labs CBC & Chem 7: 12/16/18 05:55 12/16/18 05:55 Labs: Abnormal Lab Results - Last 24 Hours (Table) 12/15/18 12/15/1819 Range/Units 11:58 16:30 20:41 RBC (4.30-5.90) m/uL Hgb (13.0-17.5) gm/dL Hct (39.0-53.0) % RDW (11.5-15.5) % Plt Count (150-450) k/uL Sodium (137-145) mmol/L Chloride (98-107) mmol/L BUN (9-20) mg/dL Glucose (74-99) mg/dL POC Glucose (mg/dL) 193 H 114 H 134 H (75-99) mg/dL Calcium (8.4-10.2) mg/dL 12/16/18 12/16/18 12/16/18 Range/Units 05:55 05:55 06:07 RBC 2.52 L (4.30-5.90) m/uL Hgb 8.2 L (13.0-17.5) gm/dL Hct 23.9 L (39.0-53.0) % RDW 18.2 H (11.5-15.5) % Plt Count 100 L (150-450) k/uL Sodium 127 L (137-145) mmol/L Chloride 95 L (98-107) mmol/L BUN 39 H (9-20) mg/dL Glucose 132 H (74-99) mg/dL POC Glucose (mg/dL) 152 H (75-99) mg/dL Calcium 7.8 L (8.4-10.2) mg/dL Assessment and Plan Assessment: Hypotension likely related to dehydration and hypovolemia, rule out sepsis and adrenal insufficiency appropriate labs have been ordered including urine and blood cultures Multiple bilateral pulmonary nodules may suggest present of metastatic disease, however most of the nodules are calcified suggestive of the prior granulomatous disease, few subsegment subcentimeter bilateral nodules of unclear significance is seen we will consider PET scan as outpatient, agree with a rehab placement and palliative chemotherapy is planned Shortness of breath due to multifactorial origin Small left pleural effusion Esophageal cancer Acute on chronic diastolic heart failure Generalized weakness and medical debility Severe COPD emphysema Plan: Hold diuresis Bronchodilators Gentle rehydration IV Solu-Cortef, will follow up on cortisone level if it's normal then can be taken off Godwin cultures finding discussed with patient and patient's at length Further recommendations pending plan of care as per clinical response of patient Chemotherapy to be initiated once performance level has improved Critical care time spent 35 minutes Time with Patient: Greater than 30
[2018-12-16] MEDS: HYDROCORTISONE SUCCINATE 100 MG/2 ML VIAL IV SCH ×3 (09:59→23:40)
[2018-12-16] MEDS: DIAZEPAM 5 MG TAB PO SCH ×2 (10:00→21:07)
[2018-12-16] MEDS: NYSTATIN 100,000 UNIT/ML SUSP 500,000 UNIT/5 ML CUP PO SCH ×4 (10:00→21:14)
[2018-12-16] MEDS: metFORMIN 500 MG TAB PO SCH ×2 (10:00→21:07)
[2018-12-16] MEDS: PANTOPRAZOLE 40 MG TABLET PO SCH (10:00)
[2018-12-16] MEDS: ASPIRIN 81 MG PO SCH (10:00)
[2018-12-16] MEDS: SENNOSIDES-DOCUSATE SODIUM 1 EACH TAB PO SCH ×2 (10:00→21:07)
[2018-12-16] MEDS: QUEtiapine 50 MG TAB PO SCH ×2 (10:00→21:07)
[2018-12-16] MEDS: METOPROLOL SUCCINATE (ER) 25 MG TAB.ER.24H PO SCH (10:00)
[2018-12-16] MEDS: GABAPENTIN 300 MG CAP PO SCH ×3 (10:00→21:07)
[2018-12-16] MEDS: DEXAMETHASONE 2 MG TAB PO SCH ×3 (10:00→21:14)
[2018-12-16] MEDS: FUROSEMIDE 40 MG TAB PO SCH (10:03)
[2018-12-16] MEDS: HEPARIN SODIUM,PORCINE 5,000 UNIT/ML 1 ML VIAL SQ SCH ×2 (10:11→21:07)
[2018-12-16] MEDS: LISINOPRIL 2.5 MG TAB PO SCH (11:38)
[2018-12-16 11:49] LABS: Glucose,Whole Blood 255 mg/dL (75-99)
[2018-12-16 12:54] LABS: Appearance,Urine Clear (Clear); Bilirubin,Urine Negative (Negative); Blood,Urine Negative (Negative); Color,Urine Yellow; Glucose,Urine (UA) Negative (Negative); Ketones,Urine Negative (Negative); Leukocyte Esterase,Urine Negative (Negative); Nitrite,Urine Negative (Negative); PH, Urine 5.5 (5.0-8.0); Protein,Urine Trace (Negative); Specific Gravity,Urine 1.017 (1.001-1.035); Urobilinogen,Urine <2.0 mg/dL (<2.0)
[2018-12-16 14:04] VITALS: BMI 25.8
[2018-12-16 16:04] LABS: Glucose,Whole Blood 248 mg/dL (75-99)
[2018-12-16] MEDS ORDERED: INSULIN ASPART (NovoLOG) 100 UNIT/ML VIAL SQ ONE (16:08)
--- NOTE | 2018-12-16 16:31 | P.CONS ---
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 He initially presented with metastasis to the left L-spine paraspinal region with soft tissue L4-5 extension. He is status-post lumbar laminectomy with decompression and biopsy. As detailed previously, the patients history began 2-3 months ago with progressively worsening low back pain. He subsequently developed difficulty ambulating with left leg weakness. Neurosurgery took the patient for decompression on 10/07, and path also was consistent with adenocarcinoma of esophgeal origin. The patient was planning to be discharged to a rehab facility, but ultimately improved enough to be sent home a few weeks ago. He presented for chemotherapy on 12/07/18, but at that time was complaining of marked weakness, fall with trauma to his left hip area, and shortness of breath. Shortness of breath was worsened with lying down and improved with sitting up. He was therefore sent in to the hospital. He was diagnosed with acute on chronic congestive heart failure. On my evaluation today Mike appears confused. He is A&O only to person and place and even that with significant thougth. He notes increased rib and shoulder pain.He does have some dysphagia to solids. Review of Systems Constitutional: Reports anorexia Cardiovascular: Reports lightheadedness Respiratory: Reports congestion Gastrointestinal: Reports early satiety Neurological: Reports confusion, Reports weakness Past Medical History Past Medical History: Cancer, CVA/TIA, Diabetes Mellitus, Hypertension, Osteoarthritis (OA), Prostate Disorder, Renal Disease Additional Past Medical History / Comment(s): TIA 2012-no residual effects, hx. aortic aneurysm with stent placement, decreased kidney function, small hiatal hernia. Esophageal cancer, spinal cancer; laminectomy History of Any Multi-Drug Resistant Organisms: None Reported Past Surgical History: Appendectomy Additional Past Surgical History / Comment(s): APPY (4 YRS OLD), COLONOSCOPY, abd. aortic stent 2014 Past Anesthesia/Blood Transfusion Reactions: No Reported Reaction Past Psychological History: Schizoaffective Disorder Additional Psychological History / Comment(s): controlled by medication Smoking Status: Former smoker Past Alcohol Use History: None Reported Additional Past Alcohol Use History / Comment(s): down to 10 cigs/day from 1ppd, quit 10/01/18started in high school, Past Drug Use History: Marijuana Additional Drug Use History / Comment(s): MARIJUANA-occasional use - Past Family History Father Family Medical History: Cancer Additional Family Medical History / Comment(s): COLO-RECTAL CA. GRANDFATHER- COLO-RECTAL CANCER ALSO Medications and Allergies Home Medications Medication Instructions Recorded Confirmed Type Aspirin 81 mg PO DAILY 08/11/18 12/07/18 History QUEtiapine [SEROquel] 50 mg PO BID 08/11/18 12/07/18 History metFORMIN HCL [Glucophage] 500 mg PO BID 08/11/18 12/07/18 History Docusate [Colace] 100 mg PO DAILY 11/25/18 12/07/18 History Gabapentin [Neurontin] 300 mg PO TID 11/25/18 12/07/18 History HYDROcodone/APAP 10-325MG [[place] 1 tab PO Q6HR PRN 11/25/18 12/07/18 History 10-325] Morphine Sulfate ER [Ms Contin] 30 mg PO Q8H 11/25/18 12/07/18 History Pantoprazole Sodium [Protonix] 40 mg PO DAILY 11/25/18 12/07/18 History Pravastatin Sodium [Pravachol] 20 mg PO HS 11/25/18 12/07/18 History Dexamethasone [Hexadrol] 2 mg PO TID 12/07/18 12/07/18 History Calcium Carbonate [Tums] 500 mg PO TID PRN chew 12/14/18 Rx Ergocalciferol [Vitamin D2 50,000 unit PO Q7D cap 12/14/18 Rx (DRISDOL)] Furosemide [Lasix] 20 mg PO DAILY #30 tab 12/14/18 Rx Heparin Sodium,Porcine [Heparin 5,000 unit SQ Q12HR vial 12/14/18 Rx Sodium] INSULIN ASPART (NovoLOG) [NovoLOG 0 unit SQ ACHS vial 12/14/18 Rx (formulary)] Ipratropium-Albuterol Nebulize 3 ml INHALATION RT-QID ampul.neb 12/14/18 Rx [Duoneb 0.5 mg-3 mg/3 ml Soln] Lisinopril [Zestril] 2.5 mg PO DAILY #30 tab 12/14/18 Rx Metoprolol Succinate (ER) [Toprol 25 mg PO DAILY #30 tab 12/14/18 Rx XL] Tamsulosin [Flomax] 0.4 mg PO PC-SUPPER cap.er.24h 12/14/18 Rx Allergies Allergy/AdvReac Type Severity Reaction Status Date / Time No Known Allergies Allergy Verified 12/07/18 15:48 Physical Exam Vitals: Vital Signs Temp Pulse Pulse Resp BP Pulse Ox 12/16/18 16:06 106 H 95 12/16/18 11:46 98 12/16/18 11:35 96 12/16/18 11:25 98.1 F 101 H 18 91/55 98 12/16/18 08:45 100 12/16/18 08:32 98 12/16/18 08:00 97.8 F 101 H 18 99/64 97 12/16/18 04:26 90 12/16/18 04:15 88 12/16/18 04:00 89 18 111/61 99 12/16/18 02:51 101/59 12/16/18 02:18 105/63 12/16/18 02:10 89/50 12/16/18 02:00 75/40 12/16/18 01:50 77/41 12/16/18 00:00 98 18 88/54 96 12/15/18 23:57 96 12/15/18 23:47 100 12/15/18 20:13 100 12/15/18 20:01 100 96 12/15/18 20:00 98.3 F 101 H 18 98/57 98 Intake and Output 12/16/18 12/16/18 12/16/18 06:59 14:59 22:59 Intake Total 340 Output Total 1450 300 Balance -1450 40 Intake: Oral 340 Output: Urine 1450 300 Other: Voiding Method Urinal # Voids 2 Weight 79.3 kg 79.3 kg - Constitutional General appearance: average body habitus - EENT Eyes: anicteric sclerae - Neck Neck: normal ROM - Respiratory Respiratory: bilateral: CTA - Cardiovascular Rhythm: regular - Neurologic A&Ox2. Not ambulatory Results CBC & Chem 7: 12/16/18 05:55 12/16/18 05:55 Labs: Abnormal Lab Results - Last 24 Hours (Table) 12/15/18 12/15/18 12/16/18 Range/Units 16:30 20:41 05:55 RBC (4.30-5.90) m/uL Hgb (13.0-17.5) gm/dL Hct (39.0-53.0) % RDW (11.5-15.5) % Plt Count (150-450) k/uL Sodium 127 L (137-145) mmol/L Chloride 95 L (98-107) mmol/L BUN 39 H (9-20) mg/dL Glucose 132 H (74-99) mg/dL POC Glucose (mg/dL) 114 H 134 H (75-99) mg/dL Calcium 7.8 L (8.4-10.2) mg/dL Urine Protein (Negative) 12/16/18 12/16/18 12/16/18 Range/Units 05:55 06:07 11:33 RBC 2.52 L (4.30-5.90) m/uL Hgb 8.2 L (13.0-17.5) gm/dL Hct 23.9 L (39.0-53.0) % RDW 18.2 H (11.5-15.5) % Plt Count 100 L (150-450) k/uL Sodium (137-145) mmol/L Chloride (98-107) mmol/L BUN (9-20) mg/dL Glucose (74-99) mg/dL POC Glucose (mg/dL) 152 H 255 H (75-99) mg/dL Calcium (8.4-10.2) mg/dL Urine Protein (Negative) 12/16/18 12/16/18 Range/Units 12:40 15:44 RBC (4.30-5.90) m/uL Hgb (13.0-17.5) gm/dL Hct (39.0-53.0) % RDW (11.5-15.5) % Plt Count (150-450) k/uL Sodium (137-145) mmol/L Chloride (98-107) mmol/L BUN (9-20) mg/dL Glucose (74-99) mg/dL POC Glucose (mg/dL) 248 H (75-99) mg/dL Calcium (8.4-10.2) mg/dL Urine Protein Trace H (Negative) Assessment and Plan Assessment: 68 year old with metastatic esophageal cancer with significant muskuloskeletal pain, urinary retention, and delirium. Plan: Patient is being prepared for discharge/transfer to rehab. We will await his MRI to ensure no metastatic cause of his confusion. He will require palliative radiation therapy to the shoulder/rib as an outpatient all though his pain appears to be in moderate control at this time. He is a patient known to Dr. Lemon who will re-evaluate Mike tomorrow after imaging is complete. Bigg Santoyo M.D.
[2018-12-16 16:59] LABS: Glucose,Whole Blood 242 mg/dL (75-99)
--- NOTE | 2018-12-16 17:05 | PN ---
PROGRESS NOTE DATE OF SERVICE: 12/16/2018. DATA: 5 feet 9 inches and weight 79.3 kg, BSA 1.95 m2, BMI 25.8 kg/m2. ALLERGY: Unknown. The patient is seen today. Evaluated [id number], discussed with the patient and his . Currently patient had during the night an episode of severe hypotension and at that time they called me in the midnight and stated that his blood pressure has been in the 80s and systolic with the drop on the blood pressure to 89/50 and at that time, we are requesting to have IV fluid bolus 300 mL normal saline, 0.9 normal saline and also after the bolus to continue IV and a 75 mL an hour as well as starting the Solu-Medrol 60 mg IV push every 6 hours 3 doses. Subsequently, they called me again and stated that his blood pressure still in the 90s and at the same time, advised that to call the Critical Care Dr. Reid Reed who did the staff communicated with Dr. Reid Reed and he did see him today and he also dictated the note. He stated in his note that the patient had episodes of hypotension and he agreed with the approach IV fluid as well as the steroids with the underlying possibility of the suprarenal gland suppression with the chronic use of the dexamethasone for his cancer. As today, the patient is seen, discussed with the and the patient and the was there at the time and the patient was on the Erica chair. He was trying to eat and he is awake, alert. He is conscious. He is not confused or disoriented. He knows my name and they checked with him yesterday and the inpatient rehabilitation was severely consumed of his activity and they need aggressive therapy and we found that the patient is generalized weakness and he needs gentle therapy and a prolonged time. We arranged subsequently after they did not accept the patient, arranged for [facility], which will be more of easy gradual and without having the exhaustion to the patient. Jordyn Bay, the nurse practitioner for oncology, did see the patient and she did order the MRI of the brain as I was told and they were planning to do the MRI this morning. At the time of the examination, was not done yet and with her feeling that it could be the patient could have metastasis to the brain. The MRI result is not available. However, yesterday we did ultrasound of the bladder and the kidney because of his complaining of pain on the kidney and they did a test and they found that the normal kidney, no hydronephrosis and no evidence of hydronephrosis and urinary bladder was okay as well with the bilateral ureter jets was seen. Meanwhile they did a bladder scan and we found only 75 mL of urine and that was no evidence of urinary retention at this time. Subsequently as mentioned, Jordyn Bay, saw the patient and she ordered for him MRI of the brain to rule out metastasis. As Dr. Reid Reed saw him today and he stated that in his note that his impression that the hypotension is likely related to dehydration and hypobulimia and rule out sepsis, adrenal insufficiency and ordered the laboratory. He has multiple bilateral nodules suggestive of metastatic disease. However, most of the nodule is calcified suggestive of prior granulomatous disease. The subcentimeter bilateral nodule of unclear significance is seen and will consider future PET scan as outpatient and agree with the rehab and palliative chemotherapy. He has the shortness of breath is due to multifactorial and small left pleural effusion. He had esophageal cancer and he has acute on the top of chronic diastolic heart failure. However, he had generalized weakness and medical debility and severe COPD. He recommended to hold the diuresis, bronchodilator and gentle rehydration. I did discuss it subsequently with the coding, I did not believe that the patient had diastolic heart failure. However, because of his hypoproteinemia and hypoalbuminemia and severe nutritional deficiency and as he was the night before admission to [facility], he was in [facility] and his albumin was 2.2, and he was extremely significant edema of the lower extremities with the hypoproteinemia and hypoalbuminemia and we have increased legs and increased edema of the lower extremities as well, which more finding more than the echocardiogram. Echocardiogram is indicating that he had an ejection fraction of 60 and no pulmonary hypertension as well as no evidence of severe diastolic dysfunction. I personally do not believe that he had diastolic dysfunction acute or chronic. The patient, however, had high troponin and seen by the Cardiology and Dr. Chaudhry in [facility] [place] as he arrived to [place] seen by Dr. Dave Maki, as well as Dr. Liza Dunbar and all of them indicating that related to the cancer does not related to injury of the heart with the ejection fraction is normal. He had COPD and emphysema. He had cancer of the esophagus and as adenocarcinoma with the underlying metastasis to L4, L5, and Dr. Sunil Martin stated in his note when he saw him on 12/08/2018 that the patient had that history that he had on July 2018 he had large paraspinal lesion, extensive bone destruction, and transferred to [facility]. He had a CT scan of the chest revealed lower esophageal thickening with the EGD in 10/06/2018, Dr. Aguilar revealed 10 cm ulcerated lesion started at 30 cm from the incisor and also really revealed moderately well differentiated adenocarcinoma. He was taken to the OR by Dr. Lovell at 10/07/2018 and he had laminectomy and vertebroplasty at L5 and confirmed metastatic adenocarcinoma. The patient seen by Dr. Maria and he was negative for P53 mutation and PD-L1 negative and JERRY and HER-2. He received palliative chemotherapy radiation by Dr. Lemon of Radiation Oncology and 10 sessions. He had lost 30-40 pounds weight loss and lost 3-4 in the last 3-4 months and he has multiple subcu lesions in the PET scan revealed diffuse bone and soft tissue metastasis. He was ambulated by walker and his status performance slowly declined. He used to be a smoker, 1 pack per day until September 2018. 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 No family history of malignancy. In November, he completed palliative radiation on 11/26/2018 and he started chemotherapy FOLFOX on December 07, 2018. Subsequently he was admitted to [facility] [place] with the generalized weakness and difficulty walking, edema and subsequently discharged. He was readmitted to [facility]. The continuation of his current examination. Today as the patient examined, he is conscious, alert. His temperature 98.1 F oral. His heart rate ranging between 96-101, respiratory rate 18 per minute. His blood pressure 91/55 and mean blood pressure is 67. His saturation 98% on 3 L. On his examination, he is currently today conscious, alert, oriented. His at bedside. HEENT was negative. Neck was supple and able to eat and swallow. The chest was aerated bilateral, however, he has scattered rhonchi with the underlying history of COPD with the possibility of metastasis to the lung versus the granulomatous disease with multiple nodules and calcified and noncalcified. The heart was regular sinus rhythm. However, patient is hypotensive and abdomen is soft with positive bowel sounds. Extremities: Marked improvement on the edema of the lower extremity was still present. Some edema and no significant neurological deficit. ASSESSMENT: 1. The patient his discharge has been canceled because of inability to find a place through his insurance for transfer to take care of him as the patient his could not be able to take care of him and his progressive debility and unconditioning as mentioned above, debility. 2. Underlying possible brain metastasis and he is today going to have a brain MRI for followup for clarification of his condition. 3. Hypotensive and we will be withholding the ONDINA inhibitor as well as adjusting the medication that can drop his blood pressure to keep on his perfusion of the kidneys and he currently has no abnormalities with his kidney and his kidney has been satisfactory. 4. Diabetes mellitus. The current laboratory is white count 8.5, hemoglobin 8.2 with anemia of chronic disease and cancer. His platelet count is 100 and his hematocrit 23.9. His chemistry indicating sodium 127 and his potassium is 5, chloride 95, and carbon dioxide is 28 and anion gap is 4. His BUN 39 and creatinine 0.92 with the estimated glomerular filtration rate for non- is 85. His blood sugar, he has diabetes controlled with medication and using the insulin to scale as well. His serum cortisol this morning was 9, but the patient already has infusion of the Solu-Medrol injection. His calcium was 7.8. His urinalysis today was indicating negative no evidence of infection. We will continue the plan for penitentiary placement as the patient will not get any chemo per the oncology and they are waiting because of his physical assessment is not able to handle the chemotherapy at this time. However, they did not deny the chemotherapy for the future and still patient wants to have FULL CODE at this time. The patient will be planning for the penitentiary for physical therapy. MMODL / IJN: [id number] /
[2018-12-16] MEDS: TAMSULOSIN 0.4 MG CAP.ER.24H PO SCH (18:18)
--- NOTE | 2018-12-16 18:25 | P.PN ---
Subjective Progress Note Date: 12/16/18 Principal diagnosis: Fluid overload, weakness When seen patient is sitting up in the chair eating his dinner, moving about independently without assistance. His states he walked to the door and a few steps past and then back into the room and sat on the chair. If again im provement in mental status and communication and strength since yesterday. Patient states he is still a little bit confused but he feels better. He states better pain control. Objective - Vital Signs Vital signs: Vital Signs Temp 98.1 F 12/16/18 11:25 Pulse 104 H 12/16/18 16:28 Resp 18 12/16/18 11:25 BP 91/55 12/16/18 11:25 Pulse Ox 95 12/16/18 16:06 Intake & Output 12/15/18 12/16/18 12/16/18 18:59 06:59 18:59 Intake Total 680 430 Output Total 450 1450 300 Balance 230 -1450 130 Weight 79.3 kg 79.3 kg Intake: Oral 680 430 Output: Urine 450 1450 300 Other: Voiding Method Urinal Urinal # Voids 2 1 - Constitutional General appearance: Present: average body habitus, cooperative, no acute distress - EENT Eyes: Present: anicteric sclerae, EOMI - Cardiovascular Rhythm: regular - Peripheral edema leg Peripheral Edema: bilateral: None - Gastrointestinal General gastrointestinal: Present: normal bowel sounds, soft - Musculoskeletal Musculoskeletal: Present: generalized weakness - Psychiatric Psychiatric: Present: A&O x's 3, appropriate affect, intact judgment & insight - Labs CBC & Chem 7: 12/16/18 05:55 12/16/18 05:55 Labs: Abnormal Lab Results - Last 24 Hours (Table) 12/15/18 12/16/18 12/16/18 Range/Units 20:41 05:55 05:55 RBC 2.52 L (4.30-5.90) m/uL Hgb 8.2 L (13.0-17.5) gm/dL Hct 23.9 L (39.0-53.0) % RDW 18.2 H (11.5-15.5) % Plt Count 100 L (150-450) k/uL Sodium 127 L (137-145) mmol/L Chloride 95 L (98-107) mmol/L BUN 39 H (9-20) mg/dL Glucose 132 H (74-99) mg/dL POC Glucose (mg/dL) 134 H (75-99) mg/dL Calcium 7.8 L (8.4-10.2) mg/dL Urine Protein (Negative) 12/16/18 12/16/18 12/16/18 Range/Units 06:07 11:33 12:40 RBC (4.30-5.90) m/uL Hgb (13.0-17.5) gm/dL Hct (39.0-53.0) % RDW (11.5-15.5) % Plt Count (150-450) k/uL Sodium (137-145) mmol/L Chloride (98-107) mmol/L BUN (9-20) mg/dL Glucose (74-99) mg/dL POC Glucose (mg/dL) 152 H 255 H (75-99) mg/dL Calcium (8.4-10.2) mg/dL Urine Protein Trace H (Negative) 12/16/18 12/16/18 Range/Units 15:44 16:51 RBC (4.30-5.90) m/uL Hgb (13.0-17.5) gm/dL Hct (39.0-53.0) % RDW (11.5-15.5) % Plt Count (150-450) k/uL Sodium (137-145) mmol/L Chloride (98-107) mmol/L BUN (9-20) mg/dL Glucose (74-99) mg/dL POC Glucose (mg/dL) 248 H 242 H (75-99) mg/dL Calcium (8.4-10.2) mg/dL Urine Protein (Negative) Assessment and Plan (1) AMS (altered mental status) Narrative/Plan: Due to patient's acute change in mental status MRI of the brain has been ordered. Current Visit: Yes Status: Acute Priority: High Code(s): R41.82 - ALTERED MENTAL STATUS, UNSPECIFIED SNOMED Code(s): 802025035 (2) Pain of metastatic malignancy Narrative/Plan: Pain medications adjusted. Meds for constipation verified Radiation Oncologist has seen pt. Radiation is a possibility for pain control in the future. Current Visit: Yes Status: Acute Priority: High Code(s): G89.3 - NEOPLASM RELATED PAIN (ACUTE) (CHRONIC) SNOMED Code(s): 721731953 (3) Weakness Narrative/Plan: Patient condition today is better than yesterday, still pending MRI brain. Continue with PT/OT. Pending rehabilitation Current Visit: Yes Status: Acute Priority: High Code(s): R53.1 - WEAKNESS SNOMED Code(s): 93571638 (4) Esophageal cancer Narrative/Plan: Patient did receive nearly his complete first cycle of modified FOLFOX 6 (he received the IV portion, he did not get his CIVI pump for 46 hours). Patient is not due for next cycle for at least 10 days. We reviewed again importance of getting pt stronger so that he can tolerate the treatment. Pt is still motivated. Med changes have helped control pain, pending MRI brain and Rad Onc eval appreciated. Current Visit: Yes Status: Acute Priority: High Code(s): C15.9 - MALIGNANT NEOPLASM OF ESOPHAGUS, UNSPECIFIED SNOMED Code(s): 342283923 (5) Anxiety about health Narrative/Plan: Valium 5 mg by mouth twice a day. Anxiety improved. Current Visit: Yes Status: Acute Priority: High Code(s): F41.8 - OTHER SPECIFIED ANXIETY DISORDERS SNOMED Code(s): 489820746 Plan: Doctor attests: I performed a history and physical examination of this patient, developed impression and plan of care, discussed with dictator. I agree with dictators note, documented as a scribe.
[2018-12-16 20:01] LABS: Glucose,Whole Blood 256 mg/dL (75-99)
[2018-12-16] MEDS: PRAVASTATIN SODIUM 20 MG TAB PO SCH (21:07)
[2018-12-16] MEDS ORDERED: FUROSEMIDE 10 MG/ML 2 ML VIAL IV STA (23:36)
[2018-12-17] MEDS: IPRATROPIUM-ALBUTEROL 3 ML NEB INHALATION PRN ×4 (00:04→10:59)
[2018-12-17] MEDS: MORPHINE SULFATE ER 30 MG TABLET PO SCH ×2 (02:47→12:20)
[2018-12-17 06:15] LABS: Glucose,Whole Blood 204 mg/dL (75-99)
[2018-12-17 06:21] LABS: Anisocytosis Slight; HCT 21.4 % (39.0-53.0); HGB 7.4 gm/dL (13.0-17.5); MCH 33.2 pg (25.0-35.0); MCHC 34.7 g/dL (31.0-37.0); MCV 95.6 fL (80.0-100.0); Macrocytosis Slight; Mean Platelet Volume 7.1; Platelet Count 103 k/uL (150-450); RBC 2.24 m/uL (4.30-5.90); RDW 18.4 % (11.5-15.5); WBC 6.9 k/uL (3.8-10.6)
[2018-12-17] MEDS: INSULIN ASPART (NovoLOG) 100 UNIT/ML VIAL SQ SCH ×2 (06:30→12:27)
[2018-12-17 06:38] LABS: African American GFR (CKD) >90 (>60 ml/min/1.73 sqM); Anion Gap 9 mmol/L; Blood Urea Nitrogen 42 mg/dL (9-20); Calcium 7.7 mg/dL (8.4-10.2); Carbon Dioxide 25 mmol/L (22-30); Chloride 98 mmol/L (98-107); Glucose 157 mg/dL (74-99); Potassium 4.1 mmol/L (3.5-5.1); Sodium 132 mmol/L (137-145)
[2018-12-17] MEDS: SENNOSIDES-DOCUSATE SODIUM 1 EACH TAB PO SCH (09:00)
[2018-12-17] MEDS: GABAPENTIN 300 MG CAP PO SCH (09:29)
[2018-12-17] MEDS: QUEtiapine 50 MG TAB PO SCH (09:29)
[2018-12-17] MEDS: PANTOPRAZOLE 40 MG TABLET PO SCH (09:29)
[2018-12-17] MEDS: METOPROLOL SUCCINATE (ER) 25 MG TAB.ER.24H PO SCH (09:29)
[2018-12-17] MEDS: DEXAMETHASONE 2 MG TAB PO SCH (09:29)
[2018-12-17] MEDS: HYDROCORTISONE SUCCINATE 100 MG/2 ML VIAL IV SCH (09:30)
[2018-12-17] MEDS: ASPIRIN 81 MG PO SCH (09:30)
[2018-12-17] MEDS: NYSTATIN 100,000 UNIT/ML SUSP 500,000 UNIT/5 ML CUP PO SCH ×2 (09:30→12:28)
[2018-12-17] MEDS: HEPARIN SODIUM,PORCINE 5,000 UNIT/ML 1 ML VIAL SQ SCH (09:30)
[2018-12-17] MEDS: LISINOPRIL 2.5 MG TAB PO SCH (09:30)
[2018-12-17] MEDS: metFORMIN 500 MG TAB PO SCH (09:30)
[2018-12-17] MEDS: HYDROcodone/APAP 10-325MG 1 EACH TAB PO PRN (09:34)
[2018-12-17 11:16] VITALS: RESP 18
[2018-12-17 12:04] LABS: Glucose,Whole Blood 222 mg/dL (75-99)
[2018-12-17] MEDS: DIAZEPAM 5 MG TAB PO SCH (12:20)
[2018-12-17 12:45] VITALS: BP 94/55; PULSE 101; TEMP 97.1
--- NOTE | 2018-12-17 13:12 | DS ---
DISCHARGE SUMMARY NEW DATA: He is a FULL CODE. Has been discussed with the patient and his several time, still insisted FULL CODE. His height is 5 feet 9 inches, weight 79 kg, BSA 1.95 meter square, BMI 25.7 kg/meter square. ALLERGIES: No known allergies. DISCHARGE DIAGNOSES: 1. Severe debility with inability to walk. 2. Protein calorie deficiency severe with the hypoproteinemia and hypoalbuminemia. 3. 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 4. 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 5. Pulmonary metastasis is probability with the underlying granulomatous disease. 6. Abnormal troponin and seen by Cardiology indicating is due to the cancer with metastasis. 7. Severe pain in the low back pain secondary to bone metastasis and on the chronic pain medication and was given by Oncology at [facility]. 8. He has past surgical history of abdominal aortic aneurysm at [facility]. He had adrenal insufficiency with the hypotension and some dehydration and has been recovered with Solu-Medrol and he had chronic dexamethasone was placed by the Oncology in [facility] as well. 9. Status post palliative radiation therapy by Dr. Lemon, Radiation Oncology at [facility]. The patient has been planned for discharge before on the previous date. However, there is no possibilities without the insurance approved the placement of discharge. HOSPITAL COURSE: The patient presented to the emergency room with severe debility and pain at the same time. He had hospital course admitted to the hospital because of his troponin was elevated. Seen by Dr. Maki, the management trainee and Dr. Martin, the oncologist, and Dr. Martin's [place], as well as Critical Care and Pulmonary, Dr. Reid Reed. He had echocardiogram indicating that ejection fraction 60 to 65 with the underlying mitral regurgitation, tricuspid regurgitation, and left ventricular pressure was 35 and no evidence of pulmonary hypertension and moderate concentric left ventricular hypertrophy and I did not believe that the patient has diastolic dysfunction as the echocardiogram otherwise was normal. He has had several x-rays to rule out metastasis to the bone as well as he had prior to that at [facility] PET scan which showed that he had metastasis to the bone. The patient had received only at the time of admission. He was admitted after he had chemotherapy first one with FOLFOX and he did not tolerate it very well and he transferred from the infusion unit at [facility] at [facility] to the ER where he was admitted from the ER to the floor and that initiated the treatment. He has a low protein, low albumin with severe protein calorie deficiency with the underlying high metabolic rate secondary to the cancer. He is on DVT prophylaxis, which we took a clearance from oncologist in [facility] during the weekend and none of the [facility] Oncology was available. On the physical examination at the time of discharge, the patient was conscious, alert, oriented, and his medication was reviewed and I saw him in designer architect hour. His vital sign was currently temperature 97.3, heart rate ranging between 96 to 107 to 100, respiratory rate 18 and his blood pressure 106/64, and mean arterial pressure is 78. His oxygen saturation 98% on 4 L. He was planned to have MRI of the brain, however, that was not done because he had a stent in his chest and . with the underlying coronary artery disease. His last laboratories today on the : His white count 6.9 with hemoglobin 7.4 and hematocrit was 21.4. His sodium 132, potassium 4.1, chloride 98, carbon dioxide 25, and BUN 42 with creatinine 0.80, and estimated glomerular filtration rate is more than 90 for non-. His diabetes mellitus to continue covered by the insulin to scale as his blood sugar the POC glucose was 204, especially when he has a steroid which has increased the hyperglycemia. His calcium is 7.7. On the clinical examination, patient seen, evaluated, discussed with the patient and his and the plan. He still insisted on FULL CODE. His HEENT was negative and able to eat and he had mild dysphagia. The chest was aerated bilaterally. However, he has COPD with scattered rhonchi and he gets an inhalation therapy, the nebulizer with DuoNeb q.i.d. The heart was regular sinus rhythm with occasional minimal tachycardia not added to his illness. He had history of elevated troponin, but not to affect his heart muscle with the echocardiogram was ejection fraction is normal and I do not believe the diastolic dysfunction was not mentioned as well as he had severe hypoproteinemia and protein calorie deficiency with the underlying decreased intake and dysphagia and high metabolic factor with the cancer with metastasis. Chest was aerated and he has scattered rhonchi, but stable and the heart as mentioned was regular sinus. The abdomen is soft and positive bowel sounds. He has a bowel movement. Extremities: He had the right leg no edema. The left leg has trace edema with still continued from the protein and albumin until it is improving with the nutritional supports. The patient in stable general condition to be discharged to [facility] today and we will follow him in the retirement. Further followup with Oncology when the patient has better stamina and his quality of life is improving as the oncologist stated that they will not do any chemotherapy at this time because of his debility. Will continue the current hospital medication. MMODL / IJN: [id number] /
--- NOTE | 2018-12-17 15:23 | P.PN ---
Subjective Progress Note Date: 12/17/18 Principal diagnosis: Multiple bilateral pulmonary nodules suggest present of metastatic disease Shortness of breath due to multifactorial origin Small left pleural effusion Esophageal cancer Acute on chronic diastolic heart failure Generalized weakness and medical debility Severe COPD emphysema 12/17/2018, patient seen eval examined during the rounds labs reviewed medicat ions reviewed, cough congestion shortness of breath continued to improve patient was slightly fluid overloaded IV fluids has been stopped and 40 mg Lasix has been given patient likely will be discharged to extended care facility later on today 12/16/2018, patient seen eval examined during the rounds patient had a episode in which he was weak slightly confused noted that blood pressure drop down into 70s he got 300 fluid of crystalloid bolus followed by IV Solu-Cortef, cortisol level is pending labs are pending blood and urine cultures have been ordered, likely episode is related to intravascular volume depletion and dehydration but a possible associated sepsis cannot be excluded, hemodynamic slightly better patient is passing urine blood pressure last check systolic was 100, white cell count 8500 hemoglobin is 8.2 sodium is 127 potassium is 5 BUN is 39 creatinine 0.9 to, patient is on maintenance IV fluids, critical care time spent 35 minutes 12/14/2018, patient seen eval examined during the rounds labs reviewed medications reviewed care plan discussed with the patient at length, he is being prepared for discharge to rehab followed by chemotherapy once we have is completed his shortness of breath is stable does complaining of generalized fatigue and weakness denies any chest pain cough or sputum production 12/13/2018, patient seen eval reexamined during the rounds care plan discussed with patient and present at the bedside at length, updated about computed tomography scan finding, patient is being considered for placement in rehab with the intent to give palliative chemotherapy over there he is stable in terms of shortness of breath complain of generalized weakness denies any cough or sputum production 12/12/2018, patient seen eval examined during the rounds he is sitting upright on the bed he is slightly short of breath he choked food particle earlier this m orning, however denies similar occurrence in the past, denies any chest pain still of ongoing shortness of breath but severity has improved 12/11/2018, patient seen eval examined during the rounds labs reviewed medications reviewed computed tomography scan of the chest reviewed there irregular subcentimeter nodules were seen bilaterally however multiple nodule they were seen in the chest x-ray are more of a calcified nodule suggestive of old prior recurrent pneumonitis disease, calcified lymph node prominence is seen as well will follow this patient closely with serial computed tomography scan no aggressive intervention like biopsy has been recommended monitor closely patient to be started on chemotherapy as planned once clinically stable and performance status improved This is a 68-year-old male with the prior medical history of stage IV esophageal cancer presenting to the emergency department shortness of breath. Patient has been in and out of the hospital recently. Patient has had dyspnea over the past couple of weeks, worse the past few days. Patient also noted progressive generalized weakness was in fact admitted at [facility] with congestive heart failure patient just has been initiated on chemotherapy I believe first cycle was terminated due to health status however patient was attempted to undergo chemotherapy again and postponed due to generalized progressive weakness and breathing difficulties, bone scan has been unremarkable chest x-ray revealed bilateral small nodular densities multiple possibility of metastatic disease cannot be excluded, echocardiogram revealed ejection fraction of 60%, no evidence of pulmonary hypertension Objective - Vital Signs Vital signs: Vital Signs Temp 97.1 F L 12/17/18 11:40 Pulse 101 H 12/17/18 11:40 Resp 18 12/17/18 11:40 BP 94/55 12/17/18 11:40 Pulse Ox 97 12/17/18 11:40 Intake & Output 12/16/18 12/17/18 12/17/18 18:59 06:59 18:59 Intake Total 430 200 Output Total 300 1150 Balance 130 -1150 200 Weight 79.3 kg 79 kg Intake: Oral 430 200 Output: Urine 300 1150 Other: Voiding Method Urinal # Voids 1 1 2 - Exam - Constitutional General appearance: average body habitus, cooperative, disheveled, mild distress - EENT Eyes: EOMI, PERRLA, poor dentition ENT: normal oropharynx Ears: bilateral: normal - Neck Neck: normal ROM Carotids: bilateral: upstroke normal Thyroid: bilateral: normal size - Respiratory Respiratory: bilateral: diminished, rales (Fine bilateral), negative: CTA, rhonchi, wheezing, prolonged expiration, prolonged inspiration - Cardiovascular Rhythm: regular Heart sounds: normal: S1, S2 - Gastrointestinal General gastrointestinal: distended - Integumentary Integumentary: normal turgor - Neurologic Neurologic: CNII-XII intact - Musculoskeletal Musculoskeletal: gait normal, generalized weakness, strength equal bilaterally - Psychiatric Psychiatric: A&O x's 3, appropriate affect, intact judgm - Labs CBC & Chem 7: 12/17/18 05:36 12/17/18 05:36 Labs: Abnormal Lab Results - Last 24 Hours (Table) 12/16/18 12/16/18 12/16/18 Range/Units 15:44 16:51 19:59 RBC (4.30-5.90) m/uL Hgb (13.0-17.5) gm/dL Hct (39.0-53.0) % RDW (11.5-15.5) % Plt Count (150-450) k/uL Sodium (137-145) mmol/L BUN (9-20) mg/dL Glucose (74-99) mg/dL POC Glucose (mg/dL) 248 H 242 H 256 H (75-99) mg/dL Calcium (8.4-10.2) mg/dL 12/17/18 12/17/18 12/17/18 Range/Units 05:36 05:36 06:12 RBC 2.24 L (4.30-5.90) m/uL Hgb 7.4 L (13.0-17.5) gm/dL Hct 21.4 L (39.0-53.0) % RDW 18.4 H (11.5-15.5) % Plt Count 103 L (150-450) k/uL Sodium 132 L (137-145) mmol/L BUN 42 H (9-20) mg/dL Glucose 157 H (74-99) mg/dL POC Glucose (mg/dL) 204 H (75-99) mg/dL Calcium 7.7 L (8.4-10.2) mg/dL 12/17/18 Range/Units 11:57 RBC (4.30-5.90) m/uL Hgb (13.0-17.5) gm/dL Hct (39.0-53.0) % RDW (11.5-15.5) % Plt Count (150-450) k/uL Sodium (137-145) mmol/L BUN (9-20) mg/dL Glucose (74-99) mg/dL POC Glucose (mg/dL) 222 H (75-99) mg/dL Calcium (8.4-10.2) mg/dL Microbiology - Last 24 Hours (Table) 12/16/18 10:21 Blood Culture - Preliminary Blood No Growth after 24 hours 12/16/18 09:02 Blood Culture - Preliminary Blood No Growth after 24 hours Assessment and Plan Assessment: Hypotension likely related to dehydration and hypovolemia, less likely to be sepsis and adrenal insufficiency appropriate labs have been ordered including urine and blood cultures, reviewed so far has been unremarkable Multiple bilateral pulmonary nodules may suggest present of metastatic disease, however most of the nodules are calcified suggestive of the prior granulomatous disease, few subsegment subcentimeter bilateral nodules of unclear significance is seen we will consider PET scan as outpatient, agree with a rehab placement and palliative chemotherapy is planned Shortness of breath due to multifactorial origin Small left pleural effusion Esophageal cancer Acute on chronic diastolic heart failure Generalized weakness and medical debility Severe COPD emphysema Plan: Hold diuresis Bronchodilators Gentle rehydration IV Solu-Cortef, will follow up on cortisone level if it's normal then can be taken off [facility]win cultures finding discussed with patient and patient's at length Further recommendations pending plan of care as per clinical response of patient Chemotherapy to be initiated once performance level has improved Critical care time spent 35 minutes Time with Patient: Greater than 30
== END 2018-12-17 14:13 | DRG 947 ==
LOC: EC 14:27 → 3SCARD 20:00
PROVIDERS: ADMIT Internal Medicine; ATTEND Internal Medicine
DX: G89.3 Neoplasm related pain (acute) (chronic) (principal); E43 Unspecified severe protein-calorie malnutrition; I50.33 Acute on chronic diastolic (congestive) heart failure; C15.5 Malignant neoplasm of lower third of esophagus; C78.00 Secondary malignant neoplasm of unspecified lung; C79.51 Secondary malignant neoplasm of bone; C79.89 Secondary malignant neoplasm of other specified sites; E87.1 Hypo-osmolality and hyponatremia; G72.0 Drug-induced myopathy; R04.2 Hemoptysis; I11.0 Hypertensive heart disease with heart failure; J43.9 Emphysema, unspecified; I95.9 Hypotension, unspecified; J84.10 Pulmonary fibrosis, unspecified; D69.6 Thrombocytopenia, unspecified; E11.40 Type 2 diabetes mellitus with diabetic neuropathy, unspecified; E11.65 Type 2 diabetes mellitus with hyperglycemia; E83.51 Hypocalcemia; F25.9 Schizoaffective disorder, unspecified; I08.3 Combined rheumatic disorders of mitral, aortic and tricuspid valves; R13.10 Dysphagia, unspecified; E86.0 Dehydration; I25.10 Atherosclerotic heart disease of native coronary artery without angina pectoris; K59.00 Constipation, unspecified; M54.10 Radiculopathy, site unspecified; D63.8 Anemia in other chronic diseases classified elsewhere; D63.0 Anemia in neoplastic disease; E78.5 Hyperlipidemia, unspecified; F41.9 Anxiety disorder, unspecified; M19.90 Unspecified osteoarthritis, unspecified site; T38.0X5A Adverse effect of glucocorticoids and synthetic analogues, initial encounter; R26.2 Difficulty in walking, not elsewhere classified; R79.89 Other specified abnormal findings of blood chemistry; R41.0 Disorientation, unspecified; Z68.25 Body mass index [BMI] 25.0-25.9, adult; Z79.82 Long term (current) use of aspirin; Z79.899 Other long term (current) drug therapy; Z79.4 Long term (current) use of insulin; Z79.52 Long term (current) use of systemic steroids; Z92.3 Personal history of irradiation; Z87.891 Personal history of nicotine dependence; Z86.73 Personal history of transient ischemic attack (TIA), and cerebral infarction without residual deficits; Z86.79 Personal history of other diseases of the circulatory system; Z95.5 Presence of coronary angioplasty implant and graft; Z90.49 Acquired absence of other specified parts of digestive tract; Z87.440 Personal history of urinary (tract) infections; Z80.0 Family history of malignant neoplasm of digestive organs
CPT/HCPCS: 36415; 71046; 71250; 73502; 76770; 78306; 80048; 80053; 81003; 82306; 82330; 82533; 82728; 83540; 83550; 83605; 83735; 83880; 83930; 83935; 84133; 84300; 84484; 85025; 85027; 85610; 85730; 87040; 93005; 93306; 94640; 94760; 96374; 99285